=== PATIENT | male | born 1950 | race Caucasian/White ===

== ENCOUNTER → 2017-01-17 | Outpatient (CLI) | payer MEDICARE ==
[2017-01-17 17:54] LABS: Basophils # (A) 0.1 k/uL (0-0.2); Basophils % (A) 1 %; CH 32.4; CHCM 33.4; Eosinophils # (A) 0.4 k/uL (0-0.7); Eosinophils % (A) 4 %; HCT 51.9 % (39.0-53.0); HDW 2.45; HGB 16.8 gm/dL (13.0-17.5); Luc # (Auto) 0.21; Luc % (Auto) 2; Lymphocytes % (A) 22 %; MCH 31.7 pg (25.0-35.0); MCHC 32.4 g/dL (31.0-37.0); MCV 97.7 fL (80.0-100.0); Mean Platelet Volume 8.3; Monocytes # (A) 0.8 k/uL (0-1.0); Monocytes % (A) 9 %; Neutrophils # (A) 5.8 k/uL (1.3-7.7); Neutrophils % (A) 63 %; RBC 5.31 m/uL (4.30-5.90); RDW 13.5 % (11.5-15.5); WBC 9.3 k/uL (3.8-10.6); WBC (Perox) 9.42
[2017-01-17 18:05] LABS: Amylase 160 U/L (30-110); Anion Gap 11 mmol/L; Blood Urea Nitrogen 24 mg/dL (9-20); Calcium 8.8 mg/dL (8.4-10.2); Carbon Dioxide 24 mmol/L (22-30); Chloride 107 mmol/L (98-107); Glucose 110 mg/dL (74-99); Non-African American GFR(MDRD) 59 (>60 ml/min/1.73 sqM); Potassium 3.9 mmol/L (3.5-5.1); Sodium 142 mmol/L (137-145)
[2017-01-17 18:27] LABS: Creatine Kinase MB 1.6 ng/mL (0.0-2.4); Troponin I 0.012 ng/mL (0.000-0.034)
== END | disposition home or self-care (01) ==
LOC: LABWHC1 17:23
PROVIDERS: ATTEND Internal Medicine
DX: R10.13 Epigastric pain (principal)
CPT/HCPCS: 36415; 80048; 82150; 82553; 84484; 85025

== ENCOUNTER → 2017-01-19 | Outpatient (CLI) | payer MEDICARE ==
--- NOTE | 2017-01-19 11:42 | US ---
EXAMINATION TYPE: US abdomen complete DATE OF EXAM: 01/19/2017 11:27 AM COMPARISON: CT abdomen February 24 2012 CLINICAL HISTORY: R10.13 ABD PAIN, R68.89 ELEV AMYLASE. EPIGASTRIC PAIN EXAM MEASUREMENTS: Liver Length: 16.6 cm Gallbladder Wall: 0.2 cm CBD: 0.4 cm Spleen: 10.2 cm Right Kidney: 11.7 X 4.9 X 6.2 cm Left Kidney: 11.8 X 4.8 X 5.8 cm TECHNOLOGIST IMPRESSION: overlying bowel gas Pancreas: overlying bowel gas portions seen wnl Liver: wnl Gallbladder: wnl Evidence for sonographic Bruce's sign: no CBD: wnl Spleen: wnl Right Kidney: wnl Left Kidney: wnl Upper IVC: wnl Abd Aorta: distal aorta 2.6 cm slightly larger than mid aorta 1.8 cm The liver is heterogeneous. Evaluation for focal masses is limited due to the heterogeneity. No obvio us masses noted. The intrahepatic portion of the IVC and proximal abdominal aorta are within normal l imits. There is ectasia to the infrarenal abdominal aorta with aneurysmal change measuring up to 3.4 cm transversely noted on image 20. There is no evidence of cholelithiasis. Common bile duct is unre markable. Pancreas is obscured by overlying bowel gas and is suboptimally evaluated on images saved. The spleen is unremarkable. Kidneys are symmetric and free of hydronephrosis. No renal lesions are seen. IMPRESSION: Suboptimal study without significant finding clearly seen to account for patient's sympto ms. 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
== END | disposition home or self-care (01) ==
LOC: RADUSWWP 11:01
PROVIDERS: ATTEND Internal Medicine
DX: I77.811 Abdominal aortic ectasia (principal); R10.13 Epigastric pain
CPT/HCPCS: 76700

== ENCOUNTER → 2017-08-23 | Outpatient (CLI) | payer MEDICARE ==
[2017-08-23 11:30] LABS: Prostate Specific Antigen 2.1 ng/mL (0.00-4.00)
== END | disposition home or self-care (01) ==
LOC: LABWHC1 07:27
PROVIDERS: ATTEND Internal Medicine Critical Care Medicine
DX: Z00.00 Encounter for general adult medical examination without abnormal findings (principal); I25.10 Atherosclerotic heart disease of native coronary artery without angina pectoris; N40.0 Benign prostatic hyperplasia without lower urinary tract symptoms
CPT/HCPCS: 36415; 80061; 84153

== ENCOUNTER → 2018-06-07 | Outpatient (CLI) | payer MEDICARE ==
--- NOTE | 2018-06-07 12:15 | XR ---
EXAMINATION TYPE: XR knee complete LT DATE OF EXAM: 06/07/2018 CLINICAL HISTORY: Left knee pain with no known injury. TECHNIQUE: Three views of the left knee are obtained. COMPARISON: None. FINDINGS: There is no acute fracture/dislocation evident in left knee. There is mild to moderate tri compartmental arthrosis with small marginal osteophytes, medial compartment joint space narrowing and tibial plateau sclerosis. No suspicious osseous lesion. Small suprapatellar joint effusion is noted. The overlying soft tissue appears unremarkable. Fabella is incidentally noted. IMPRESSION: There is no acute fracture or dislocation in the left knee. Mild to moderate tricompartm ental arthrosis and small suprapatellar joint effusion.
== END | disposition home or self-care (01) ==
LOC: RADXRMAIN 11:42
PROVIDERS: ATTEND Internal Medicine
DX: M17.12 Unilateral primary osteoarthritis, left knee (principal)

== ENCOUNTER → 2018-09-04 | Outpatient (CLI) | payer MEDICARE ==
[2018-09-04 08:25] LABS: Basophils # (A) 0.1 k/uL (0-0.2); Basophils % (A) 1 %; Eosinophils # (A) 0.4 k/uL (0-0.7); Eosinophils % (A) 4 %; HCT 51.4 % (39.0-53.0); HGB 16.7 gm/dL (13.0-17.5); Lymphocytes # (A) 1.6 k/uL (1.0-4.8); Lymphocytes % (A) 17 %; MCH 31.5 pg (25.0-35.0); MCHC 32.5 g/dL (31.0-37.0); MCV 96.7 fL (80.0-100.0); Monocytes # (A) 0.7 k/uL (0-1.0); Monocytes % (A) 8 %; Neutrophils # (A) 6.7 k/uL (1.3-7.7); Neutrophils % (A) 70 %; Platelet Count 169 k/uL (150-450); RBC 5.31 m/uL (4.30-5.90); RDW 13.2 % (11.5-15.5); WBC 9.7 k/uL (3.8-10.6)
[2018-09-04 09:08] LABS: Albumin 3.9 g/dL (3.5-5.0); Calcium 9.2 mg/dL (8.4-10.2); Potassium 4.8 mmol/L (3.5-5.1); Total Bilirubin 0.4 mg/dL (0.2-1.3); Total Protein 6.6 g/dL (6.3-8.2)
[2018-09-04 09:24] LABS: T4, Free (Free Thyroxine) 0.87 ng/dL (0.78-2.19)
[2018-09-04 09:38] LABS: PSA Annual Screen 1.65 ng/mL (0.00-4.00)
== END | disposition home or self-care (01) ==
LOC: LABWHC1 06:59
PROVIDERS: ATTEND Internal Medicine Critical Care Medicine
DX: Z00.00 Encounter for general adult medical examination without abnormal findings (principal); E78.5 Hyperlipidemia, unspecified; N40.0 Benign prostatic hyperplasia without lower urinary tract symptoms
CPT/HCPCS: 84439; 80061; 80053; 84443; 85025; 36415; G0103

== ENCOUNTER → 2018-11-29 | Outpatient (CLI) | payer MEDICARE ==
[2018-11-29 18:50] LABS: Sex Horm Bind Glob 48.7 nmol/L (21.63-113.13)
== END | disposition home or self-care (01) ==
LOC: LABWHC1 12:48
PROVIDERS: ATTEND Urology
DX: N52.01 Erectile dysfunction due to arterial insufficiency (principal); N40.1 Benign prostatic hyperplasia with lower urinary tract symptoms
CPT/HCPCS: 36415; 82040; 82947; 83001; 83002; 84146; 84153; 84270; 84402; 84403; 84439; 84443; 84479

== ENCOUNTER → 2019-01-23 | Outpatient (CLI) | payer MEDICARE ==
[2019-01-23 12:00] LABS: Basophils # (A) 0.1 k/uL (0-0.2); Basophils % (A) 1 %; Eosinophils # (A) 0.3 k/uL (0-0.7); Eosinophils % (A) 3 %; HCT 52.6 % (39.0-53.0); HGB 16.5 gm/dL (13.0-17.5); Lymphocytes # (A) 1.3 k/uL (1.0-4.8); Lymphocytes % (A) 14 %; MCH 30.9 pg (25.0-35.0); MCHC 31.4 g/dL (31.0-37.0); MCV 98.5 fL (80.0-100.0); Mean Platelet Volume 7.2; Monocytes # (A) 0.7 k/uL (0-1.0); Monocytes % (A) 7 %; Neutrophils # (A) 6.6 k/uL (1.3-7.7); Neutrophils % (A) 72 %; Platelet Count 178 k/uL (150-450); RBC 5.34 m/uL (4.30-5.90); RDW 13.4 % (11.5-15.5); WBC 9.1 k/uL (3.8-10.6)
[2019-01-23 12:11] LABS: INR 0.9 (<1.2); Partial Thromboplastin Time 25.3 sec (22.0-30.0); Prothrombin Time 9.9 sec (9.0-12.0)
[2019-01-23 16:55] LABS: Anion Gap 5.6 mmol/L (4.00-12.00); Calcium 8.8 mg/dL (8.7-10.3); Carbon Dioxide 26.4 mmol/L (21.6-31.8); Potassium 5.1 mmol/L (3.5-5.5)
== END | disposition home or self-care (01) ==
LOC: LABWHC1 10:09
PROVIDERS: ATTEND Radiology Diagnostic Radiology
DX: Z01.812 Encounter for preprocedural laboratory examination (principal); N40.0 Benign prostatic hyperplasia without lower urinary tract symptoms; Z79.01 Long term (current) use of anticoagulants
CPT/HCPCS: 36415; 80048; 85025; 85610; 85730

== ENCOUNTER → 2019-07-22 | Outpatient (CLI) | payer MEDICARE ==
--- NOTE | 2019-07-22 13:20 | XR ---
EXAMINATION TYPE: XR ribs bilateral DATE OF EXAM: 07/22/2019 COMPARISON: 10/14/2015 HISTORY: Pleural dyspnea TECHNIQUE: Two-view bilateral ribs FINDINGS: No acute fractures are evident. No pneumothorax is evident. IMPRESSION: 1. Normal bilateral ribs
== END | disposition home or self-care (01) ==
LOC: RADXRMAIN 09:33
PROVIDERS: ATTEND Internal Medicine Critical Care Medicine
DX: R07.81 Pleurodynia (principal)
CPT/HCPCS: 71110

== ENCOUNTER 2019-07-24 16:59 | Emergency (ER) | payer MEDICARE ==
[2019-07-24 17:05] VITALS: RESP 18
[2019-07-24] MEDS ORDERED: NITROGLYCERIN OINT 1 INCH/GM PACKET TOPICAL STA (17:25)
[2019-07-24] MEDS ORDERED: ASPIRIN 81 MG PO STA (17:25)
[2019-07-24 17:52] LABS: Basophils # (A) 0.1 k/uL (0-0.2); Basophils % (A) 1 %; Eosinophils # (A) 0.7 k/uL (0-0.7); Eosinophils % (A) 6 %; HGB 16.5 gm/dL (13.0-17.5); Lymphocytes # (A) 1.9 k/uL (1.0-4.8); Lymphocytes % (A) 18 %; MCV 96.9 fL (80.0-100.0); Mean Platelet Volume 8.2; Monocytes # (A) 0.9 k/uL (0-1.0); Monocytes % (A) 8 %; Neutrophils % (A) 65 %; Platelet Count 153 k/uL (150-450); RBC 5.16 m/uL (4.30-5.90); RDW 13.6 % (11.5-15.5); WBC 10.7 k/uL (3.8-10.6)
[2019-07-24 17:59] LABS: INR 0.9 (<1.2); Partial Thromboplastin Time 24.5 sec (22.0-30.0); Prothrombin Time 9.8 sec (9.0-12.0)
[2019-07-24 18:01] LABS: Calcium 9.1 mg/dL (8.4-10.2); Magnesium 2.4 mg/dL (1.6-2.3); Potassium 4.4 mmol/L (3.5-5.1); Total Bilirubin 0.4 mg/dL (0.2-1.3); Total Protein 6.7 g/dL (6.3-8.2)
--- NOTE | 2019-07-24 18:04 | ED ---
Chest Pain HPI - General Chief Complaint: Chest Pain Stated Complaint: abn EKG Time Seen by Provider: 07/24/19 17:05 Source: patient Mode of arrival: ambulatory Limitations: no limitations - History of Present Illness Initial Comments: The patient is a 69-year-old male who presents to the emergency department with reported chest pain for the past 8 days. He describes it as a pulling sensation in his left chest which is worse when he moves his neck up and down. He can reproduce the pain. He has no associated symptoms to include nausea, vomiting or diaphoresis. No radiating pain into his left arm. Denies any back or flank pain. He does have a history of cardiac disease. States that he had a stent placed in 2003. He has had stress testing within the last year which was negative. He denies any associated shortness of breath. 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 She did call him and let him know what was going on. He did order a rib series. Imaging was done on Monday. He did follow up in office today to see Dr. Stevens. An EKG was performed and was concerning therefore he sent the patient into the emergency department for evaluation. The patient arrives with his EKGs. He denies current pain at this time. He denies any additional symptoms to what headaches, fevers or chills, cough, hemoptysis. No unilateral calf pain or swelling. No history of DVTs or PEs. The patient is not on any blood thinners. There are no other alleviating, precipitating or modifying factors. - Related Data Home Medications Medication Instructions Recorded Confirmed Aspirin EC [Ecotrin Low Dose] 81 mg PO DAILY 07/24/19 07/24/19 Atenolol 25 mg PO DAILY 07/24/19 07/24/19 Cyclobenzaprine [Flexeril] 10 mg PO TID PRN 07/24/19 07/24/19 Ezetimibe [Zetia] 5 mg PO DAILY 07/24/19 07/24/19 Hydrocodone/Acetaminophen [[place] 1.5 tab PO Q3H PRN 07/24/19 07/24/19 7.5-325] Losartan Potassium [Cozaar] 25 mg PO DAILY 07/24/19 07/24/19 Tadalafil [Cialis] 5 mg PO DAILY 07/24/19 07/24/19 Tamsulosin HCl [Flomax] 0.4 mg PO DAILY 07/24/19 07/24/19 Vit C/E/Zn/Coppr/Lutein/Zeaxan 1 cap PO BID 07/24/19 07/24/19 [Preservision Areds 2 Softgel] amLODIPine [Norvasc] 10 mg PO DAILY 07/24/19 07/24/19 Allergies Allergy/AdvReac Type Severity Reaction Status Date / Time No Known Allergies Allergy Verified 07/24/19 17:46 Review of Systems ROS Statement: Those systems with pertinent positive or pertinent negative responses have been documented in the HPI. ROS Other: All systems not noted in ROS Statement are negative. EKG Findings - EKG Comments: EKG Findings:: EKG demonstrates a sinus rhythm with a ventricular rate of 77. VT interval 196. QRS 86. QTC 427. There is ST segment elevation in leads V2 however there is a bundle branch block. This is compared the patient's previous EKG in July 2011 which demonstrates similar findings however ST segment elevation is more pronounced. It does not meet sgarbossa criteria. The patient does arrive with 3 EKGs from office which do show ST segment elevation in leads V2 through V5. There is significant baseline artifact. There is a bundle branch block present Past Medical History Past Medical History: Chest Pain / Angina, Hypertension History of Any Multi-Drug Resistant Organisms: None Reported Past Surgical History: Heart Catheterization With Stent Past Psychological History: No Psychological Hx Reported Smoking Status: Current every day smoker Past Alcohol Use History: Occasional Past Drug Use History: None Reported General Exam Limitations: no limitations General appearance: alert, in no apparent distress Head exam: Present: atraumatic, normocephalic, normal inspection Eye exam: Present: normal appearance, PERRL, EOMI. Absent: scleral icterus, conjunctival injection, periorbital swelling ENT exam: Present: normal exam, mucous membranes moist Neck exam: Present: normal inspection. Absent: tenderness, meningismus, lymphadenopathy Respiratory exam: Present: normal lung sounds bilaterally. Absent: respiratory distress, wheezes, rales, rhonchi, stridor Cardiovascular Exam: Present: regular rate, normal rhythm, normal heart sounds. Absent: systolic murmur, diastolic murmur, rubs, gallop, clicks GI/Abdominal exam: Present: soft, normal bowel sounds. Absent: distended, tenderness, guarding, rebound, rigid Extremities exam: Present: normal inspection, full ROM, normal capillary refill. Absent: tenderness, pedal edema, joint swelling, calf tenderness Back exam: Present: normal inspection Neurological exam: Present: alert, oriented X3, CN II-XII intact Psychiatric exam: Present: normal affect, normal mood Skin exam: Present: warm, dry, intact, normal color. Absent: rash Course Vital Signs 07/24/19 07/24/19 07/24/19 17:01 18:00 19:00 Temperature 98.1 F 97.8 F Pulse Rate 82 80 80 Respiratory 18 18 18 Rate Blood Pressure 208/112 157/91 148/99 O2 Sat by Pulse 97 9 L 98 Oximetry Chest Pain MDM - Differential Diagnosis AMI, ACS - MDM Upon arrival the patient is placed into room 4. He is hooked up to continuous pulse ox and cardiac monitoring. A thorough history and physical exam is performed. I reviewed the patient's outside EKGs which demonstrated ST elevation in leads V2 and V3. There is a bundle branch block present. Does not appear to meet scar both the criteria. I did recommend a cardiac workup to include laboratory studies and a chest x-ray. I also recommended a x-ray of the patient's cervical spine. The patient is provided with 324 mg of chewable aspirin. He also has Nitropaste applied to the chest. I did reevaluate the patient and he states that he's had no change. He still has pain when he moves his neck however has no pain at this time. I did recommend hospital admission in order to continue to trend the patient's troponins. I am extremely concerned that his chest pain may be cardiac in nature. The patient refused. I did inform him of the risks of leaving which include sudden cardiac . There is also risk for permanent disability. The patient understood the risks and continues to request discharge. is at bedside and agrees with his decision. I informed him that I would have him go AGAINST MEDICAL ADVICE and the patient was okay with this. I requested [address] Alonso to update them regarding the patient's care plan. the patient and his refused stating that they would make them aware. I did ask him that if he has any new or worsening symptoms that he return to the emergency room. The patient was then discharged AGAINST MEDICAL ADVICE Disposition Clinical Impression: Chest pain Disposition: Left Against Medical Advice Condition: Serious Instructions (If sedation given, give patient instructions): Chest Pain (ED) Additional Instructions: I recommended hospital admission. You are leaving the emergency department AGAINST MEDICAL ADVICE. You need to follow up with Dr. Rutledge as soon as soumya rubio. Return to the emergency room for any new or worsening symptoms or if you agree to hospitalization. Is patient prescribed a controlled substance at d/c from ED?: No Referrals: Flores Stevens MD [Primary Care Provider] - 1-2 days Time of Disposition: 18:36
--- NOTE | 2019-07-24 18:22 | XR ---
EXAMINATION TYPE: XR chest 2V DATE OF EXAM: 07/24/2019 COMPARISON: 04/23/2019 INDICATION: Cough, pain TECHNIQUE: Frontal and lateral views of the chest are obtained. FINDINGS: The heart size is mildly prominent. The pulmonary vasculature is normal. The lungs are clear. IMPRESSION: 1. No acute pulmonary process.
--- NOTE | 2019-07-24 18:23 | XR ---
EXAMINATION TYPE: XR cervical spine comp DATE OF EXAM: 07/24/2019 COMPARISON: None HISTORY: Pain TECHNIQUE: 5 view cervical spine FINDINGS: There is loss of disc height C4-5 C5-6. Anterior visual body spurring is present through th jaquelin levels. Posterior spinal lamellar line is intact. Prevertebral space is normal. Some left foramin al stenosis of C3-4 may be present. Some left C4-5 foraminal stenosis may be present. IMPRESSION: 1. Degenerative disc changes mid cervical spine. 2. Left foraminal narrowing discussed above
[2019-07-24 23:02] VITALS: BP 148/99; PULSE 80; TEMP 97.8
== END 2019-07-24 19:08 | disposition left against medical advice (07) ==
LOC: EC 16:59
DX: R07.9 Chest pain, unspecified (principal); I45.4 Nonspecific intraventricular block; I20.9 Angina pectoris, unspecified; I10 Essential (primary) hypertension; F17.200 Nicotine dependence, unspecified, uncomplicated; Z79.82 Long term (current) use of aspirin; Z79.899 Other long term (current) drug therapy; Z95.5 Presence of coronary angioplasty implant and graft; Z53.20 Procedure and treatment not carried out because of patient's decision for unspecified reasons
CPT/HCPCS: 36415; 71046; 72050; 80053; 83735; 83880; 84484; 85025; 85610; 85730; 99285

== ENCOUNTER → 2019-08-15 | Outpatient (CLI) | payer MEDICARE ==
[2019-08-15 17:42] LABS: Chol/HDL Ratio 4.57; LDL Cholesterol,Calculated 105.4 mg/dL (0.0-131.0); VLDL Calculation 19.6 mg/dL (5.00-40.00)
== END ==
LOC: LABWHC1 07:31
PROVIDERS: ATTEND Nurse Practitioner Adult Health
DX: E78.2 Mixed hyperlipidemia (principal)
CPT/HCPCS: 36415; 80061; 84460

== ENCOUNTER → 2020-05-06 | Outpatient (CLI) | payer MEDICARE ==
[2020-05-06 09:10] LABS: Appearance,Urine Clear (Clear); Bilirubin,Urine Negative (Negative); Blood,Urine Negative (Negative); Color,Urine Yellow; Glucose,Urine (UA) Negative (Negative); Hyaline Casts,Urine 3 /lpf (0-2); Ketones,Urine Negative (Negative); Leukocyte Esterase,Urine Negative (Negative); Mucus,Urine Rare /hpf; Nitrite,Urine Negative (Negative); PH, Urine 5.5 (5.0-8.0); Protein,Urine 1+ (Negative); Specific Gravity,Urine 1.017 (1.001-1.035); Urobilinogen,Urine <2.0 mg/dL (<2.0); WBC,Urine <1 /hpf (0-5)
[2020-05-06 09:11] LABS: Basophils # (A) 0.1 k/uL (0-0.2); Basophils % (A) 1 %; Eosinophils # (A) 0.4 k/uL (0-0.7); Eosinophils % (A) 4 %; HCT 51.3 % (39.0-53.0); HGB 16.6 gm/dL (13.0-17.5); Lymphocytes # (A) 1.6 k/uL (1.0-4.8); Lymphocytes % (A) 16 %; MCH 31.9 pg (25.0-35.0); MCHC 32.3 g/dL (31.0-37.0); MCV 98.8 fL (80.0-100.0); Mean Platelet Volume 8.4; Monocytes # (A) 0.8 k/uL (0-1.0); Monocytes % (A) 8 %; Neutrophils # (A) 6.9 k/uL (1.3-7.7); Neutrophils % (A) 70 %; Platelet Count 151 k/uL (150-450); RDW 13.3 % (11.5-15.5); WBC 9.9 k/uL (3.8-10.6)
[2020-05-06 17:10] LABS: African American GFR (CKD) 53.9 (60.0-200.0); Albumin 4.3 g/dL (3.80-4.90); Albumin/Globulin Ratio 2.15 (1.60-3.17); Anion Gap 7.5 mmol/L (4.00-12.00); BUN/Creat Ratio 22.67 Ratio (12.00-20.00); Calcium 9.1 mg/dL (8.7-10.3); Carbon Dioxide 25.5 mmol/L (21.6-31.8); Non-African American GFR(CKD) 46.5 (60.0-200.0); Potassium 4.8 mmol/L (3.5-5.5); Total Bilirubin 0.5 mg/dL (0.2-1.2); Total Protein 6.3 g/dL (6.2-8.2)
== END | disposition home or self-care (01) ==
LOC: LABWHC1 07:18
PROVIDERS: ATTEND Internal Medicine Critical Care Medicine
DX: I10 Essential (primary) hypertension (principal); N40.0 Benign prostatic hyperplasia without lower urinary tract symptoms
CPT/HCPCS: 36415; 80053; 81001; 84153; 85025

== ENCOUNTER → 2020-05-22 | Outpatient (CLI) | payer MEDICARE ==
--- NOTE | 2020-05-22 15:25 | US ---
EXAMINATION TYPE: US renal artery duplex complet DATE OF EXAM: 05/22/2020 COMPARISON: Abdomen ultrasound 01/19/2017 CLINICAL HISTORY: R10.31 Right lower quadrant pain, I10 hypertension. HTN for years, fluctuation note d within the last 2 weeks MEASUREMENTS: RENAL SIZE: Rt Kidney: 12.7 x 4.8 x 4.9cm Lt Kidney: 11.3 x 5.1 x 4.5cm RESISTANCE INDEX Right: 0.64 Left: 0.65 RA/AO RATIO (< 3.5 ) Right: 0.9 Left: 1.1 RA VELOCITY ( < 180 cm/s) Right: 122.7cm/s Left: 137.4cm/s AAA noted with greatest dimension noted distally = 4.5 x 4.1cm, thrombus noted anterior distal segmen t. Technical limitations due to large amount of overlying bowel content. No evidence of renal artery stenosis as visualized IMPRESSION: 1. Normal renal artery ultrasound. 2. Abdominal aortic aneurysm measuring 4.5 x [address] for additional workup. A [place] level critical message alert has been initiated for Balanitza Hustoncoral via the [employer] Critical Results System on 05/22/2020 3:22 PM. This message alert has been sent to Flores Stevens via the preferences provided by the clinician for the receipt of Radiology Critical Findings. Message ID [id number].
== END | disposition home or self-care (01) ==
LOC: RADUSWWP 08:19
PROVIDERS: ATTEND Internal Medicine Critical Care Medicine
DX: I71.4 Abdominal aortic aneurysm, without rupture (principal); I10 Essential (primary) hypertension
CPT/HCPCS: 93975

== ENCOUNTER → 2020-07-03 | Outpatient (CLI) | payer MEDICARE ==
--- NOTE | 2020-07-03 15:06 | CT ---
EXAMINATION TYPE: CT brain w con DATE OF EXAM: 07/03/2020 COMPARISON: None. HISTORY: headaches X [address] DLP: 1108.4 mGycm Automated exposure control for dose reduction was used. CONTRAST: CT scan of the head is performed with IV Contrast, patient injected with 100 mL of Isovue 300. FINDINGS: There is no abnormal enhancing mass or midline shift identified. Ventricular and sulcal prominence. Areas of low attenuation in the deep and periventricular white matter. Patent draining dural venous s inuses. The globes are intact and the visualized sinuses are clear. IMPRESSION: Background mild to moderate diffuse cerebral and chronic small vessel ischemic change. No suspicious enhancing masses are noted.
== END | disposition home or self-care (01) ==
LOC: RADCTMAIN 13:53
PROVIDERS: ATTEND Internal Medicine Critical Care Medicine
DX: I67.82 Cerebral ischemia (principal); R51 Headache; Z88.8 Allergy status to other drugs, medicaments and biological substances
CPT/HCPCS: 82565; 84520; 70460; 36415; Q9967

== ENCOUNTER → 2020-07-29 | Outpatient (CLI) | payer MEDICARE | END | disposition home or self-care (01) | LOC: LABWHC1 12:57 | PROVIDERS: ATTEND Otolaryngology | DX: R53.83 Other fatigue (principal); R51 Headache | CPT/HCPCS: 36415; 85652 ==

== ENCOUNTER 2020-11-04 21:26 | Inpatient (IN) | payer MEDICARE ==
[2020-11-04] MEDS ORDERED: ASPIRIN 81 MG PO STA (21:59)
--- NOTE | 2020-11-04 22:03 | ED ---
General Adult HPI - General Source: patient Mode of arrival: ambulatory Limitations: no limitations <Joshua Hung - Last Filed: 11/04/20 22:54> <Simone Lowery - Last Filed: 11/05/20 22:38> - General Chief complaint: Chest Pain Stated complaint: Chest Pain Time Seen by Provider: 11/04/20 21:55 - History of Present Illness Initial comments: Dictation was produced using [employer] dictation software. please excuse any grammatical, word or spelling errors. This patient was cared for during a federal and state declared state of emergency secondary to Covid 19 Chief Complaint: 70-year-old male presents with chest pain History of Present Illness: 70-year-old male he has past medical history of hypertension, coronary artery disease. Presents today with chest pain. He was at the grocery store when he felt some sharp chest pain that was substernal radiating to the left flank. Patient states that there was no associated diaphoresis or nausea. His pain lasts for several minutes are within improved spontaneously. Patient was at home than when he had dinner and had some ice cream. Shortly after patient had a recurrence of that pain. Patient denies any palpitations. Denies any shortness of breath. No constitutional symptoms. No cough. He reports his pain is not pleuritic. Patient does report having some mild chest pain at the bedside. The ROS documented in this emergency department record has been reviewed and confirmed by me. Those systems with pertinent positive or negative responses have been documented in the HPI. All other systems are other negative and/or noncontributory. PHYSICAL EXAM: General Impression: Alert and oriented x3, not in acute distress HEENT: Normocephalic atraumatic, extra-ocular movements intact, pupils equal and reactive to light bilaterally, mucous membranes moist. Cardiovascular: Heart regular rate and rhythm Chest: Able to complete full sentences, no retractions, no tachypnea Abdomen: abdomen soft, non-tender, non-distended, no organomegaly Musculoskeletal: Pulses present and equal in all extremities, no peripheral edema Motor: no focal deficits noted Neurological: CN II-XII grossly intact, no focal motor or sensory deficits noted Skin: Intact with no visualized rashes Psych: Normal affect and mood ED course: 70-year-old male presents today with atypical chest pain typical features. Signs upon arrival shows blood pressure 2 10/27/2013. Rest of vital signs within acceptable limits. Medications reviewed. Patient does take antihypertensives. Patient care signed out to Dr. Nino EKG interpretation: Ventricular rate 73, normal sinus rhythm, AZ interval 206, QRS 82, QTc 47. No AZ prolongation, no QTC prolongation, to inversions in high lateral leads with ST elevations in anterior leads with concavity upwards. Multiple EKGs were performed showing no dynamic changes. (Joshua Hung) - Related Data Home Medications Medication Instructions Recorded Confirmed Ezetimibe [Zetia] 10 mg PO DAILY 07/24/19 11/04/20 Tadalafil [Cialis] 5 mg PO DAILY 07/24/19 11/04/20 Tamsulosin HCl [Flomax] 0.4 mg PO DAILY 07/24/19 11/04/20 Vit C/E/Zn/Coppr/Lutein/Zeaxan 1 cap PO BID 07/24/19 11/04/20 [Preservision Areds 2 Softgel] amLODIPine [Norvasc] 10 mg PO DAILY 07/24/19 11/04/20 atenoloL [Atenolol] 25 mg PO DAILY 07/24/19 11/04/20 Losartan Potassium 50 mg PO HS 11/04/20 11/04/20 Losartan-Hctz 50-12.5 mg [Hyzaar 1 tab PO DAILY 11/04/20 11/04/20 50-12.5] Allergies Allergy/AdvReac Type Severity Reaction Status Date / Time No Known Allergies Allergy Verified 11/04/20 22:59 Review of Systems ROS Other: All systems not noted in ROS Statement are negative. <Joshua Hung - Last Filed: 11/04/20 22:54> ROS Other: All systems not noted in ROS Statement are negative. <Simone Lowery - Last Filed: 11/05/20 22:38> ROS Statement: Those systems with pertinent positive or pertinent negative responses have been documented in the HPI. Past Medical History Past Medical History: Chest Pain / Angina, Hypertension History of Any Multi-Drug Resistant Organisms: None Reported Past Surgical History: Heart Catheterization With Stent Past Psychological History: No Psychological Hx Reported Smoking Status: Current every day smoker Past Alcohol Use History: Occasional Past Drug Use History: None Reported <AnabellJoshua Ady - Last Filed: 11/04/20 22:54> - Past Family History Father History Unknown: Yes Mother History Unknown: Yes <Roselynmarco [email or web address] B - Last Filed: 11/05/20 22:38> General Exam Limitations: no limitations <Joshua Hung - Last Filed: 11/04/20 22:54> General appearance: alert, in no apparent distress Head exam: Present: atraumatic, normocephalic, normal inspection Eye exam: Present: normal appearance, PERRL, EOMI. Absent: scleral icterus, conjunctival injection, periorbital swelling ENT exam: Present: normal exam, mucous membranes moist Neck exam: Present: normal inspection. Absent: tenderness, meningismus, lymphadenopathy Respiratory exam: Present: normal lung sounds bilaterally. Absent: respiratory distress, wheezes, rales, rhonchi, stridor Cardiovascular Exam: Present: regular rate, normal rhythm, normal heart sounds. Absent: systolic murmur, diastolic murmur, rubs, gallop, clicks GI/Abdominal exam: Present: soft, normal bowel sounds. Absent: distended, tenderness, guarding, rebound, rigid Extremities exam: Present: normal inspection, full ROM, normal capillary refill. Absent: tenderness, pedal edema, joint swelling, calf tenderness Back exam: Present: normal inspection Neurological exam: Present: alert, oriented X3, CN II-XII intact Psychiatric exam: Present: normal affect, normal mood Skin exam: Present: warm, dry, intact, normal color. Absent: rash <Simone Lowery - Last Filed: 11/05/20 22:38> Course <Simone Lowery - Last Filed: 11/05/20 22:38> Vital Signs 11/04/20 11/04/20 11/04/20 21:28 22:30 23:00 Temperature 98.6 F Pulse Rate 87 76 79 Respiratory 18 18 18 Rate Blood Pressure 212/113 202/113 190/110 O2 Sat by Pulse 98 95 95 Oximetry 11/04/20 11/05/20 11/05/20 23:30 00:00 00:30 Temperature Pulse Rate 79 79 78 Respiratory 16 16 18 Rate Blood Pressure 153/94 149/93 171/93 O2 Sat by Pulse 96 96 98 Oximetry 11/05/20 11/05/20 11/05/20 01:00 02:43 03:00 Temperature Pulse Rate 79 78 84 Respiratory 18 17 20 Rate Blood Pressure 142/92 136/95 136/95 O2 Sat by Pulse 98 95 98 Oximetry 11/05/20 11/05/20 11/05/20 03:30 04:00 04:30 Temperature Pulse Rate 68 74 72 Respiratory 16 16 19 Rate Blood Pressure 133/102 149/92 147/110 O2 Sat by Pulse 97 98 100 Oximetry 11/05/20 11/05/20 11/05/20 05:00 05:30 06:00 Temperature Pulse Rate 64 63 65 Respiratory 18 17 16 Rate Blood Pressure 153/92 164/96 164/94 O2 Sat by Pulse 98 98 95 Oximetry 11/05/20 11/05/20 11/05/20 06:30 09:33 11:24 Temperature 98.3 F Pulse Rate 64 63 62 Respiratory 18 18 18 Rate Blood Pressure 156/93 158/105 150/100 O2 Sat by Pulse 97 98 95 Oximetry - Reevaluation(s) Reevaluation #1: Medical record is reviewed Patient remains inconsistent here in the ER Patient informed od findings as well as and questions answered (Simone Lowery) Medical Decision Making - Lab Data Result diagrams: 11/04/20 22:01 11/04/20 22:00 <Joshua Hung - Last Filed: 11/04/20 22:54> - Lab Data Result diagrams: 11/05/20 05:17 11/05/20 09:30 <Simone Lowery - Last Filed: 11/05/20 22:38> - Medical Decision Making 30 male who presented today with sudden onset chest pain history of ACS and stent, patient elevated troponin here in the ER will be admitted for cardiology to evaluate (Simone Lowery) - Lab Data Lab Results 11/04/20 11/04/20 11/04/20 Range/Units 22:00 22:01 22:01 WBC 12.6 H (3.8-10.6) k/uL RBC 4.83 (4.30-5.90) m/uL Hgb 15.3 (13.0-17.5) gm/dL Hct 45.8 (39.0-53.0) % MCV 94.7 (80.0-100.0) fL MCH 31.6 (25.0-35.0) pg MCHC 33.3 (31.0-37.0) g/dL RDW 12.9 (11.5-15.5) % Plt Count 158 (150-450) k/uL MPV 8.2 Neutrophils % 71 % Lymphocytes % 14 % Monocytes % 8 % Eosinophils % 4 % Basophils % 2 % Neutrophils # 9.0 H (1.3-7.7) k/uL Lymphocytes # 1.8 (1.0-4.8) k/uL Monocytes # 1.0 (0-1.0) k/uL Eosinophils # 0.5 (0-0.7) k/uL Basophils # 0.2 (0-0.2) k/uL PT 9.8 (9.0-12.0) sec INR 0.9 (<1.2) APTT 24.0 (22.0-30.0) sec D-Dimer (<0.60) mg/L FEU Sodium 140 (137-145) mmol/L Potassium 5.1 (3.5-5.1) mmol/L Chloride 110 H (98-107) mmol/L Carbon Dioxide 23 (22-30) mmol/L Anion Gap 7 mmol/L BUN 46 H (9-20) mg/dL Creatinine 1.58 H (0.66-1.25) mg/dL Est GFR (CKD-EPI)AfAm 50 (>60 ml/min/1.73 sqM) Est GFR (CKD-EPI)NonAf 44 (>60 ml/min/1.73 sqM) Glucose 136 H (74-99) mg/dL Calcium 9.3 (8.4-10.2) mg/dL Magnesium 2.2 (1.6-2.3) mg/dL Total Bilirubin 0.7 (0.2-1.3) mg/dL AST 36 (17-59) U/L ALT 30 (4-49) U/L Alkaline Phosphatase 75 (38-126) U/L Troponin I (0.000-0.034) ng/mL Total Protein 7.1 (6.3-8.2) g/dL Albumin 4.0 (3.5-5.0) g/dL Lipase 99 (23-300) U/L 11/04/20 11/04/20 11/05/20 Range/Units 22:01 22:01 02:40 WBC (3.8-10.6) k/uL RBC (4.30-5.90) m/uL Hgb (13.0-17.5) gm/dL Hct (39.0-53.0) % MCV (80.0-100.0) fL MCH (25.0-35.0) pg MCHC (31.0-37.0) g/dL RDW (11.5-15.5) % Plt Count (150-450) k/uL MPV Neutrophils % % Lymphocytes % % Monocytes % % Eosinophils % % Basophils % % Neutrophils # (1.3-7.7) k/uL Lymphocytes # (1.0-4.8) k/uL Monocytes # (0-1.0) k/uL Eosinophils # (0-0.7) k/uL Basophils # (0-0.2) k/uL PT (9.0-12.0) sec INR (<1.2) APTT (22.0-30.0) sec D-Dimer 2.46 H (<0.60) mg/L FEU Sodium (137-145) mmol/L Potassium (3.5-5.1) mmol/L Chloride (98-107) mmol/L Carbon Dioxide (22-30) mmol/L Anion Gap mmol/L BUN (9-20) mg/dL Creatinine (0.66-1.25) mg/dL Est GFR (CKD-EPI)AfAm (>60 ml/min/1.73 sqM) Est GFR (CKD-EPI)NonAf (>60 ml/min/1.73 sqM) Glucose (74-99) mg/dL Calcium (8.4-10.2) mg/dL Magnesium (1.6-2.3) mg/dL Total Bilirubin (0.2-1.3) mg/dL AST (17-59) U/L ALT (4-49) U/L Alkaline Phosphatase (38-126) U/L Troponin I 0.058 H* 0.407 H* (0.000-0.034) ng/mL Total Protein (6.3-8.2) g/dL Albumin (3.5-5.0) g/dL Lipase (23-300) U/L 11/05/20 11/05/20 11/05/20 Range/Units 05:17 05:17 07:57 WBC (3.8-10.6) k/uL RBC (4.30-5.90) m/uL Hgb (13.0-17.5) gm/dL Hct (39.0-53.0) % MCV (80.0-100.0) fL MCH (25.0-35.0) pg MCHC (31.0-37.0) g/dL RDW (11.5-15.5) % Plt Count 138 L (150-450) k/uL MPV 8.5 Neutrophils % % Lymphocytes % % Monocytes % % Eosinophils % % Basophils % % Neutrophils # (1.3-7.7) k/uL Lymphocytes # (1.0-4.8) k/uL Monocytes # (0-1.0) k/uL Eosinophils # (0-0.7) k/uL Basophils # (0-0.2) k/uL PT (9.0-12.0) sec INR (<1.2) APTT 41.2 H (22.0-30.0) sec D-Dimer (<0.60) mg/L FEU Sodium (137-145) mmol/L Potassium (3.5-5.1) mmol/L Chloride (98-107) mmol/L Carbon Dioxide (22-30) mmol/L Anion Gap mmol/L BUN (9-20) mg/dL Creatinine (0.66-1.25) mg/dL Est GFR (CKD-EPI)AfAm (>60 ml/min/1.73 sqM) Est GFR (CKD-EPI)NonAf (>60 ml/min/1.73 sqM) Glucose (74-99) mg/dL Calcium (8.4-10.2) mg/dL Magnesium (1.6-2.3) mg/dL Total Bilirubin (0.2-1.3) mg/dL AST (17-59) U/L ALT (4-49) U/L Alkaline Phosphatase (38-126) U/L Troponin I 0.582 H* (0.000-0.034) ng/mL Total Protein (6.3-8.2) g/dL Albumin (3.5-5.0) g/dL Lipase (23-300) U/L 11/05/20 Range/Units 09:30 WBC (3.8-10.6) k/uL RBC (4.30-5.90) m/uL Hgb (13.0-17.5) gm/dL Hct (39.0-53.0) % MCV (80.0-100.0) fL MCH (25.0-35.0) pg MCHC (31.0-37.0) g/dL RDW (11.5-15.5) % Plt Count (150-450) k/uL MPV Neutrophils % % Lymphocytes % % Monocytes % % Eosinophils % % Basophils % % Neutrophils # (1.3-7.7) k/uL Lymphocytes # (1.0-4.8) k/uL Monocytes # (0-1.0) k/uL Eosinophils # (0-0.7) k/uL Basophils # (0-0.2) k/uL PT (9.0-12.0) sec INR (<1.2) APTT (22.0-30.0) sec D-Dimer (<0.60) mg/L FEU Sodium 143 (137-145) mmol/L Potassium 4.1 (3.5-5.1) mmol/L Chloride 114 H (98-107) mmol/L Carbon Dioxide 20 L (22-30) mmol/L Anion Gap 9 mmol/L BUN 35 H (9-20) mg/dL Creatinine 1.31 H (0.66-1.25) mg/dL Est GFR (CKD-EPI)AfAm 63 (>60 ml/min/1.73 sqM) Est GFR (CKD-EPI)NonAf 55 (>60 ml/min/1.73 sqM) Glucose 104 H (74-99) mg/dL Calcium 8.9 (8.4-10.2) mg/dL Magnesium (1.6-2.3) mg/dL Total Bilirubin (0.2-1.3) mg/dL AST (17-59) U/L ALT (4-49) U/L Alkaline Phosphatase (38-126) U/L Troponin I (0.000-0.034) ng/mL Total Protein (6.3-8.2) g/dL Albumin (3.5-5.0) g/dL Lipase (23-300) U/L Critical Care Time Critical Care Time: Yes Total Critical Care Time: 31 <Simone Lowery - Last Filed: 11/05/20 22:38> Disposition <Joshua Hung - Last Filed: 11/04/20 22:54> Is patient prescribed a controlled substance at d/c from ED?: No <Simone Lowery - Last Filed: 11/05/20 22:38> Clinical Impression: Chest pain, NSTEMI (non-ST elevated myocardial infarction) Disposition: ADMITTED IP TO THIS HOSP Condition: Fair
[2020-11-04 22:20] LABS: Basophils # (A) 0.2 k/uL (0-0.2); Basophils % (A) 2 %; Eosinophils # (A) 0.5 k/uL (0-0.7); Eosinophils % (A) 4 %; HCT 45.8 % (39.0-53.0); HGB 15.3 gm/dL (13.0-17.5); Lymphocytes # (A) 1.8 k/uL (1.0-4.8); Lymphocytes % (A) 14 %; MCH 31.6 pg (25.0-35.0); MCHC 33.3 g/dL (31.0-37.0); MCV 94.7 fL (80.0-100.0); Mean Platelet Volume 8.2; Monocytes % (A) 8 %; Neutrophils % (A) 71 %; Platelet Count 158 k/uL (150-450); RBC 4.83 m/uL (4.30-5.90); RDW 12.9 % (11.5-15.5); WBC 12.6 k/uL (3.8-10.6)
--- NOTE | 2020-11-04 22:21 | XR ---
EXAMINATION TYPE: XR chest 1V portable DATE OF EXAM: 11/04/2020 COMPARISON: 05/05/2020 HISTORY: COPD. Chest pain TECHNIQUE: FINDINGS: There is no heart failure nor confluent pneumonic infiltrate. Heart appears enlarged. There are chest leads. There is no pleural effusion. IMPRESSION: Mild cardiomegaly. No active cardiopulmonary disease. Heart is increased slightly compare d to old exam.
[2020-11-04 22:28] LABS: INR 0.9 (<1.2); Prothrombin Time 9.8 sec (9.0-12.0)
[2020-11-04 22:37] LABS: Calcium 9.3 mg/dL (8.4-10.2)
[2020-11-04] MEDS ORDERED: LABETALOL 5 MG/ML VIAL MDV IVP STA (22:45)
[2020-11-04 22:47] LABS: Magnesium 2.2 mg/dL (1.6-2.3); Potassium 5.1 mmol/L (3.5-5.1); Total Protein 7.1 g/dL (6.3-8.2)
[2020-11-04 22:48] LABS: Total Bilirubin 0.7 mg/dL (0.2-1.3)
[2020-11-04] MEDS ORDERED: SODIUM CHLORIDE 0.9% 1,000 ML IV STA ×2 (22:49→23:21)
--- NOTE | 2020-11-05 | CT ---
EXAMINATION TYPE: CT angio chest DATE OF EXAM: 11/04/2020 COMPARISON: None HISTORY: elevated d-dimer CT DLP: 537.6 mGycm Automated exposure control for dose reduction was used. CONTRAST: Performed with IV Contrast, patient injected with 75 mL of Isovue 370. There are 3-D post processed images. There is no mediastinal adenopathy. There are no hilar masses. Thoracic aorta is intact. There is mil d 4 cm aneurysm of the ascending aorta. There is no dissection. Heart size is normal. There is no pericardial effusion. Upper abdominal soft tissues are intact. There is normal contrast opacification of the pulmonary arteries. There are no filling defects. The lungs are clear of consolidation. There is no evidence of a pulmonary mass. There is no pleural e ffusion. There is some spurring in the thoracic spine. The sternum is intact. There is no compression fracture. I see no bony destructive process. IMPRESSION: No evidence of pulmonary embolism. Mild aneurysm of the ascending aorta measures 4 cm. No suspicious pulmonary mass.
[2020-11-05] MEDS ORDERED: NITROGLYCERIN SL TABS 0.4 MG TAB SUBLINGUAL PRN (01:34)
[2020-11-05] MEDS ORDERED: HEPARIN SODIUM,PORCINE 5,000 UNIT/ML 1 ML VIAL IV ONE (01:34)
[2020-11-05] MEDS ORDERED: HEPARIN SODIUM,PORCINE 5,000 UNIT/ML 1 ML VIAL IV PRN (01:34)
[2020-11-05] MEDS: HEPARIN SOD,PORK IN 0.45% NACL 25,000 UNIT in 0.45% NACL 1 250ML.BAG IV SCH (02:07)
[2020-11-05 06:21] LABS: Mean Platelet Volume 8.5; Platelet Count 138 k/uL (150-450)
[2020-11-05] MEDS ORDERED: METOPROLOL TARTRATE 25 MG TAB PO SCH (09:00)
[2020-11-05] MEDS ORDERED: SODIUM CHLORIDE 0.9% 1,000 ML IV STA (09:28)
[2020-11-05] MEDS: atenoloL 25 MG TAB PO SCH (09:43)
[2020-11-05] MEDS: amLODIPine 10 MG TAB PO SCH (09:43)
--- NOTE | 2020-11-05 09:43 | P.CRDCN ---
History of Present Illness History of present illness: HISTORY OF PRESENTING ILLNESS This is a pleasant 70-year-old male past medical history significant for coronary artery disease status post PCI to the proximal second diagonal branch in 2005 in the setting of a myocardial infarction, hypertension, dyslipidemia and chronic nicotine dependence. He follows in the office with Dr. Begum. We have been asked to see in consultation for chest pain. He states yesterday he was referred shopping with his when he felt the discomfort in the left precordial region. The pain is described as a tight sensation that radiated from the anterior chest wall to the left axilla intermittently. There is no radiation down the arm, into the back, into the neck or the jaw. He denies associated shortness of breath, dizziness, palpitations, nausea, vomiting or diaphoresis. He didn't notice an associated headache prompting his to check his blood pressure which was 200/100. When he got home he took some [employer] [place] which she felt like did somewhat relieve his discomfort. For dinner he had tacos and ice cream and his pain returned prompting him to come to the emergency department. DIAGNOSTICS Initial EKG reveals sinus mechanism heart rate of 73 with poor R-wave progression. Repeat EKG reveals ST depression in the high lateral leads. Telemetry tracings unremarkable for an acute arrhythmia. Chest xray negative for an acute cardiopulmonary process with underlying cardiomegaly. CTA of the chest is negative for pulmonary embolism with evidence of aneurysm of the ascending aorta measuring 4 cm. Laboratory reviewed, WBC 12.6, hemoglobin 15.3, platelets 138, d-dimer 2.46, sodium 140, potassium 5.1, creatinine 1.58, magnesium 2.2, troponin 0.058, 0.407 and 0.582. Current cardiac medications include atenolol 25 mg daily, amlodipine 10 mg daily, losartan/HCTZ 50/12.5 mg in the morning and losartan 50 mg at bedtime and Zetia 10 mg daily. Most recent echocardiogram obtained in the office in 2018 revealed preserved LV systolic function with ejection fraction 60% with normal diastolic function. Most recent stress test performed in the office November 2018 revealed primarily fixed defect in the mid and distal anterior wall with no evidence of reversibility. REVIEW OF SYSTEMS At the time of my exam: CONSTITUTIONAL: Denies fever or chills. CARDIOVASCULAR: Denies chest pain, shortness of breath, orthopnea, PND or palp itations. RESPIRATORY: Denies cough. GASTROINTESTINAL: Denies abdominal pain, diarrhea, constipation, nausea or vomiting. MUSCULOSKELETAL: Denies myalgias. NEUROLOGIC: Denies numbness, tingling or weakness. ENDOCRINE: Denies fatigue, weight change, polydipsia or polyurina. GENITOURINARY: Denies burning, hematuria or urgency with micturation. HEMATOLOGIC: Denies history of anemia or bleeding. PHYSICAL EXAMINATION Blood pressure 158/105 heart rate 63 afebrile and maintaining oxygen saturation on room air. CONSTITUTIONAL: No apparent distress. HEENT: Head is normocephalic. Pupils are equal, round. Sclerae anicteric. Mucous membranes of the mouth are moist. No JVD. No carotid bruit. CHEST EXAMINATION: Lungs are clear to auscultation. No chest wall tenderness is noted on palpation or with deep breathing. HEART EXAMINATION: Regular rate and rhythm. S1, S2 heard. No murmurs, gallops or rub. ABDOMEN: Soft, nontender. Positive bowel sounds. EXTREMITIES: 2+ peripheral pulses, no lower extremity edema and no calf tenderness. NEUROLOGIC EXAMINATION: Patient is awake, alert and oriented x3. ASSESSMENT Non-ST elevated myocardial infarction Acute kidney injury Leukocytosis Coronary artery disease status post PCI Hypertension Dyslipidemia Chronic nicotine dependence PLAN Obtain 2-D echocardiogram and Doppler study to assess cardiac structure and function. Repeat renal function this morning. Continue IV fluid hydration. Hold losartan and hydrochlorothiazide this morning pending repeat renal function. He will require cardiac catherization pending renal function. This will be tenta tively planned for tomorrow with Dr. Begum. Further recommendations to follow based on clinical course. Thank you kindly for this consultation. Nurse Practitioner note has been reviewed, I agree with a documented findings and plan of care. Patient was seen and examined. Past Medical History Past Medical History: Chest Pain / Angina, Hypertension History of Any Multi-Drug Resistant Organisms: None Reported Past Surgical History: Heart Catheterization With Stent Past Psychological History: No Psychological Hx Reported Smoking Status: Current every day smoker Past Alcohol Use History: Occasional Past Drug Use History: None Reported Medications and Allergies Home Medications Medication Instructions Recorded Confirmed Type Ezetimibe [Zetia] 10 mg PO DAILY 07/24/19 11/04/20 History Tadalafil [Cialis] 5 mg PO DAILY 07/24/19 11/04/20 History Tamsulosin HCl [Flomax] 0.4 mg PO DAILY 07/24/19 11/04/20 History Vit C/E/Zn/Coppr/Lutein/Zeaxan 1 cap PO BID 07/24/19 11/04/20 History [Preservision Areds 2 Softgel] amLODIPine [Norvasc] 10 mg PO DAILY 07/24/19 11/04/20 History atenoloL [Atenolol] 25 mg PO DAILY 07/24/19 11/04/20 History Losartan Potassium 50 mg PO HS 11/04/20 11/04/20 History Losartan-Hctz 50-12.5 mg [Hyzaar 1 tab PO DAILY 11/04/20 11/04/20 History 50-12.5] Allergies Allergy/AdvReac Type Severity Reaction Status Date / Time No Known Allergies Allergy Verified 11/04/20 22:59 Physical Exam Vitals: Vital Signs Temp Pulse Resp BP Pulse Ox 11/05/20 06:30 64 18 156/93 97 11/05/20 06:00 65 16 164/94 95 11/05/20 05:30 63 17 164/96 98 11/05/20 05:00 64 18 153/92 98 11/05/20 04:30 72 19 147/110 100 11/05/20 04:00 74 16 149/92 98 11/05/20 03:30 68 16 133/102 97 11/05/20 03:00 84 20 136/95 98 11/05/20 02:43 78 17 136/95 95 11/05/20 01:00 79 18 142/92 98 11/05/20 00:30 78 18 171/93 98 11/05/20 00:00 79 16 149/93 96 11/04/20 23:30 79 16 153/94 96 11/04/20 23:00 79 18 190/110 95 11/04/20 22:30 76 18 202/113 95 11/04/20 21:28 98.6 F 87 18 212/113 98 Intake and Output 11/04/20 11/05/20 11/05/20 22:59 06:59 14:59 Intake Total 65.314 Balance 65.314 Intake: Intake, IV Titration 65.314 Amount Heparin Sod,Pork in 0.45% 65.314 NaCl 25,000 unit In 0.45 % NaCl 1 250ml.bag @ 9. 183 UNITS/KG/HR 9.997 mls /hr IV .Q24H [facility] Rx#: [id number] Other: Weight 108.862 kg Results 11/05/20 05:17 11/05/20 09:30 Cardiac Enzymes 11/04/20 11/04/20 11/05/20 Range/Units 22:00 22:01 02:40 AST 36 (17-59) U/L Troponin I 0.058 H* 0.407 H* (0.000-0.034) ng/mL 11/05/20 Range/Units 05:17 AST (17-59) U/L Troponin I 0.582 H* (0.000-0.034) ng/mL Coagulation 11/04/20 11/05/20 Range/Units 22:01 07:57 PT 9.8 (9.0-12.0) sec APTT 24.0 41.2 H (22.0-30.0) sec CBC 11/04/20 11/05/20 Range/Units 22:01 05:17 WBC 12.6 H (3.8-10.6) k/uL RBC 4.83 (4.30-5.90) m/uL Hgb 15.3 (13.0-17.5) gm/dL Hct 45.8 (39.0-53.0) % Plt Count 158 138 L (150-450) k/uL Comprehensive Metabolic Panel 11/04/20 Range/Units 22:00 Sodium 140 (137-145) mmol/L Potassium 5.1 (3.5-5.1) mmol/L Chloride 110 H (98-107) mmol/L Carbon Dioxide 23 (22-30) mmol/L BUN 46 H (9-20) mg/dL Creatinine 1.58 H (0.66-1.25) mg/dL Glucose 136 H (74-99) mg/dL Calcium 9.3 (8.4-10.2) mg/dL AST 36 (17-59) U/L ALT 30 (4-49) U/L Alkaline Phosphatase 75 (38-126) U/L Total Protein 7.1 (6.3-8.2) g/dL Albumin 4.0 (3.5-5.0) g/dL Current Medications Generic Name Dose Route Start Last Admin Trade Name Freq PRN Reason Stop Dose Admin Aspirin 325 mg 11/06/20 09:00 Aspirin 325 Mg Tab PO DAILY [facility] Heparin Sodium (Porcine) 0 unit 11/05/20 01:34 11/05/20 08:37 Heparin Sodium,Porcine 5,000 Unit/Ml 1 Ml Vial IV 2,721.5 unit Q6HR PRN Administration Low PTT Protocol Heparin Sodium/Sodium Chloride 250 mls @ 9.997 mls/hr 11/05/20 01:45 11/05/20 08:39 25,000 unit/ Sodium Chloride IV 11.01 units/kg/hr .Q24H [facility] 11.99 mls/hr Titration Protocol 9.183 UNITS/KG/HR Sodium Chloride 1,000 mls @ 100 mls/hr 11/05/20 09:28 Saline 0.9% IV 11/05/20 19:27 .Q10H ST[facility] Metoprolol Tartrate 25 mg 11/05/20 09:00 Metoprolol Tartrate 25 Mg Tab PO BID [facility] Nitroglycerin 0.4 mg 11/05/20 01:34 Nitroglycerin Sl Tabs 0.4 Mg Tab SUBLINGUAL Q5M PRN Chest Pain Intake and Output 11/04/20 11/05/20 11/05/20 22:59 06:59 14:59 Intake Total 65.314 Balance 65.314 Intake: Intake, IV Titration 65.314 Amount Heparin Sod,Pork in 0.45% 65.314 NaCl 25,000 unit In 0.45 % NaCl 1 250ml.bag @ 9. 183 UNITS/KG/HR 9.997 mls /hr IV .Q24H [facility] Rx#: [id number] Other: Weight 108.862 kg 11/05/20 05:17 11/04/20 22:00
[2020-11-05 11:12] LABS: Calcium 8.9 mg/dL (8.4-10.2)
[2020-11-05 11:14] LABS: Potassium 4.1 mmol/L (3.5-5.1)
--- NOTE | 2020-11-05 12:00 | ECHOF ---
Referral Reason:nstemi MEASUREMENTS -------- HEIGHT: 188.0 cm WEIGHT: 108.9 kg BP: 158/105 RVIDd: 3.9 cm (< 3.3) IVSd: 1.8 cm (0.6 - 1.1) LVIDd: 4.8 cm (3.9 - 5.3) LVPWd: 1.6 cm (0.6 - 1.1) IVSs: 2.1 cm LVIDs: 2.8 cm LVPWs: 2.2 cm LA Diam: 4.6 cm (2.7 - 3.8) Ao Diam: 3.2 cm (2.0 - 3.7) AV Cusp: 2.2 cm (1.5 - 2.6) MV EXCURSION: 10.412 mm (> 18.000) MV EF SLOPE: 86 mm/s (70 - 150) EPSS: 1.3 cm MV E Gorge: 0.65 m/s MV DecT: 290 ms MV A Gorge: 1.05 m/s MV E/A Ratio: 0.62 RAP: 5.00 mmHg RVSP: 22.84 mmHg FINDINGS -------- Sinus rhythm. This was a technically difficult study with suboptimal views. The left ventricular size is normal. There is severe concentric left ventricular hypertrophy. Ove rall left ventricular systolic function is low-normal with, an EF 50%. Basal inferior LV wall motion is hypokinetic. Basal inferoseptal LV wall motion is normal. Apical lateral LV wall motion is h ypokinetic. The right ventricle is moderate to severely enlarged. The left atrium is moderately dilated. The right atrium was not well visualized. xx ml of Lumason was utilized for enhancement of images. Interatrial and interventricular septum intact. There is no evidence of aortic regurgitation. There is no evidence of aortic stenosis. Mild mitral regurgitation is present. Mild tricuspid regurgitation present. There is no evidence of pulmonary hypertension. The right v entricular systolic pressure, as measured by Doppler, is 22.84mmHg. There is no pulmonic regurgitation present. The aortic root size is normal. IVC Not well visulized. There is no pericardial effusion. CONCLUSIONS -------- 1. The left ventricular size is normal. 2. There is severe concentric left ventricular hypertrophy. 3. Overall left ventricular systolic function is low-normal with, an EF 50 %. 4. Basal inferior LV wall motion is hypokinetic. 5. Basal inferoseptal LV wall motion is normal. 6. Apical lateral LV wall motion is hypokinetic. 7. The right ventricle is moderate to severely enlarged. 8. The left atrium is moderately dilated. 9. Mild mitral regurgitation is present. 10. Mild tricuspid regurgitation present. MANGLE ROLLER: Deepti Joy RDCS
[2020-11-05] MEDS ORDERED: ALPRAZolam 0.25 MG TAB PO PRN (13:18)
[2020-11-05] MEDS ORDERED: ALPRAZolam 0.5 MG TAB PO PRN (13:18)
--- NOTE | 2020-11-05 13:18 | P.HPIM ---
History of Present Illness Patient is a pleasant 70-year-old male with known history of coronary artery disease and feces in the past came in with compensative chest pain which started last night with some improvement with [place] last night and started having pain again in the precordial area pressure-like sensation and sharp pain that radiated into the left axillary area denied any diaphoresis or associated shortness of breath. Patient chest pain is not associated with nausea. Patient just pain is nonpruritic in nature. Patient did get a CT angios the chest which did not show any pulmonary embolism. Patient has mildly elevated troponins firs t troponin being 0.05 and second one being 0.5. Patient is on IV heparin at this time. Patient had a CT angios today because of which patient may not be able to get the ration has borderline kidney function with a creatinine of 1.58 baseline creatinine is around 1.3 patient is presently receiving IV fluids and holding off on ELI inhibitor and diuretics at this time. Review of Systems REVIEW OF SYSTEMS: CONSTITUTIONAL: No fever, no malaise, no fatigue. HEENT: No recent visual problems or hearing problems. Denied any sore throat. CARDIOVASCULAR: No orthopnea, PND, no palpitations, no syncope. PULMONARY: No shortness of breath, no cough, no hemoptysis. GASTROINTESTINAL: No diarrhea, no nausea, no vomiting, no abdominal pain. NEUROLOGICAL: No headaches, no weakness, no numbness. HEMATOLOGICAL: Denies any bleeding or petechiae. GENITOURINARY: Denies any burning micturition, frequency, or urgency. MUSCULOSKELETAL/RHEUMATOLOGICAL: Denies any joint pain, swelling, or any muscle pain. ENDOCRINE: Denies any polyuria or polydipsia. The rest of the 14-point review of systems is negative. Past Medical History Past Medical History: Chest Pain / Angina, Hypertension History of Any Multi-Drug Resistant Organisms: None Reported Past Surgical History: Heart Catheterization With Stent Past Psychological History: No Psychological Hx Reported Smoking Status: Current every day smoker Past Alcohol Use History: Occasional Past Drug Use History: None Reported Medications and Allergies Home Medications Medication Instructions Recorded Confirmed Type Ezetimibe [Zetia] 10 mg PO DAILY 07/24/19 11/04/20 History Tadalafil [Cialis] 5 mg PO DAILY 07/24/19 11/04/20 History Tamsulosin HCl [Flomax] 0.4 mg PO DAILY 07/24/19 11/04/20 History Vit C/E/Zn/Coppr/Lutein/Zeaxan 1 cap PO BID 07/24/19 11/04/20 History [Preservision Areds 2 Softgel] amLODIPine [Norvasc] 10 mg PO DAILY 07/24/19 11/04/20 History atenoloL [Atenolol] 25 mg PO DAILY 07/24/19 11/04/20 History Losartan Potassium 50 mg PO HS 11/04/20 11/04/20 History Losartan-Hctz 50-12.5 mg [Hyzaar 1 tab PO DAILY 11/04/20 11/04/20 History 50-12.5] Allergies Allergy/AdvReac Type Severity Reaction Status Date / Time No Known Allergies Allergy Verified 11/04/20 22:59 Physical Exam Vitals: Vital Signs Temp Pulse Resp BP Pulse Ox 11/05/20 11:24 98.3 F 62 18 150/100 95 11/05/20 09:33 63 18 158/105 98 11/05/20 06:30 64 18 156/93 97 11/05/20 06:00 65 16 164/94 95 11/05/20 05:30 63 17 164/96 98 11/05/20 05:00 64 18 153/92 98 11/05/20 04:30 72 19 147/110 100 11/05/20 04:00 74 16 149/92 98 11/05/20 03:30 68 16 133/102 97 11/05/20 03:00 84 20 136/95 98 11/05/20 02:43 78 17 136/95 95 11/05/20 01:00 79 18 142/92 98 11/05/20 00:30 78 18 171/93 98 11/05/20 00:00 79 16 149/93 96 11/04/20 23:30 79 16 153/94 96 11/04/20 23:00 79 18 190/110 95 11/04/20 22:30 76 18 202/113 95 11/04/20 21:28 98.6 F 87 18 212/113 98 Intake and Output 11/04/20 11/05/20 11/05/20 22:59 06:59 14:59 Intake Total 65.314 Balance 65.314 Intake: Intake, IV Titration 65.314 Amount Heparin Sod,Pork in 0.45% 65.314 NaCl 25,000 unit In 0.45 % NaCl 1 250ml.bag @ 9. 183 UNITS/KG/HR 9.997 mls /hr IV .Q24H [facility] Rx#: [id number] Other: Weight 108.862 kg PHYSICAL EXAMINATION: GENERAL: The patient is alert and oriented x3, not in any acute distress. Well developed, well nourished. HEENT: Pupils are round and equally reacting to light. EOMI. No scleral icterus. No conjunctival pallor. Normocephalic, atraumatic. No pharyngeal erythema. No thyromegaly. CARDIOVASCULAR: S1 and S2 present. No murmurs, rubs, or gallops. PULMONARY: Chest is clear to auscultation, no wheezing or crackles. ABDOMEN: Soft, nontender, nondistended, normoactive bowel sounds. No palpable organomegaly. MUSCULOSKELETAL: No joint swelling or deformity. EXTREMITIES: No cyanosis, clubbing, or pedal edema. NEUROLOGICAL: Gross neurological examination did not reveal any focal deficits. SKIN: No rashes. Results CBC & Chem 7: 11/05/20 05:17 11/05/20 09:30 Labs: Abnormal Lab Results - Last 24 Hours (Table) 11/04/20 11/04/20 11/04/20 Range/Units 22:00 22:01 22:01 WBC 12.6 H (3.8-10.6) k/uL Plt Count (150-450) k/uL Neutrophils # 9.0 H (1.3-7.7) k/uL APTT (22.0-30.0) sec D-Dimer (<0.60) mg/L FEU Chloride 110 H (98-107) mmol/L Carbon Dioxide (22-30) mmol/L BUN 46 H (9-20) mg/dL Creatinine 1.58 H (0.66-1.25) mg/dL Glucose 136 H (74-99) mg/dL Troponin I 0.058 H* (0.000-0.034) ng/mL 11/04/20 11/05/20 11/05/20 Range/Units 22:01 02:40 05:17 WBC (3.8-10.6) k/uL Plt Count (150-450) k/uL Neutrophils # (1.3-7.7) k/uL APTT (22.0-30.0) sec D-Dimer 2.46 H (<0.60) mg/L FEU Chloride (98-107) mmol/L Carbon Dioxide (22-30) mmol/L BUN (9-20) mg/dL Creatinine (0.66-1.25) mg/dL Glucose (74-99) mg/dL Troponin I 0.407 H* 0.582 H* (0.000-0.034) ng/mL 11/05/20 11/05/20 11/05/20 Range/Units 05:17 07:57 09:30 WBC (3.8-10.6) k/uL Plt Count 138 L (150-450) k/uL Neutrophils # (1.3-7.7) k/uL APTT 41.2 H (22.0-30.0) sec D-Dimer (<0.60) mg/L FEU Chloride 114 H (98-107) mmol/L Carbon Dioxide 20 L (22-30) mmol/L BUN 35 H (9-20) mg/dL Creatinine 1.31 H (0.66-1.25) mg/dL Glucose 104 H (74-99) mg/dL Troponin I (0.000-0.034) ng/mL Assessment and Plan Plan: -Acute non-ST elevation myocardial infarction: Patient will be continued on IV heparin hospital. Cardiac catheterization tomorrow can continue with IV fluids, Cardizem is being obtained -Acute kidney injury on chronic kidney disease stage III: Acute kidney injury is probably secondary to antidepressant medications which will be held most probably prerenal azotemia lisinopril and hydrochlorothiazide will be held -Leukocytosis reactive without any evidence of infection -hypertension -Hyperlipidemia --Nicotine dependence: Counseling was provided -Hyperlipidemia
[2020-11-05] MEDS: ATORVASTATIN 40 MG TAB PO SCH (21:20)
[2020-11-06] MEDS: HEPARIN SOD,PORK IN 0.45% NACL 25,000 UNIT in 0.45% NACL 1 250ML.BAG IV SCH (04:28)
[2020-11-06] MEDS ORDERED: ATORVASTATIN 80 MG TAB PO ONE (06:00)
[2020-11-06] MEDS ORDERED: ASPIRIN 325 MG TAB PO ONE (06:00)
[2020-11-06] MEDS: amLODIPine 10 MG TAB PO SCH (08:42)
[2020-11-06] MEDS: atenoloL 25 MG TAB PO SCH (08:42)
[2020-11-06] MEDS: TAMSULOSIN 0.4 MG CAP.ER.24H PO SCH (08:42)
[2020-11-06] MEDS ORDERED: ASPIRIN 325 MG TAB PO SCH (09:00)
[2020-11-06] MEDS ORDERED: ASPIRIN 81 MG PO SCH (09:00)
[2020-11-06 09:58] LABS: Mean Platelet Volume 9.5; Platelet Count 154 k/uL (150-450)
[2020-11-06 10:22] LABS: Calcium 8.9 mg/dL (8.4-10.2); Potassium 4.3 mmol/L (3.5-5.1)
[2020-11-06] MEDS ORDERED: LIDOCAINE 1% INJ 10MG/ML (20 ML MDV) ONE (11:43)
[2020-11-06] MEDS ORDERED: VERAPAMIL 2.5 MG/ML 2 ML AMP ONE (11:43)
[2020-11-06] MEDS ORDERED: fentaNYL (PF) 50 MCG/ML 2 ML AMP ONE (11:44)
[2020-11-06] MEDS ORDERED: SODIUM CHLORIDE 0.9% 500 ML 500 ML IV ONE (11:49)
[2020-11-06] MEDS ORDERED: fentaNYL (PF) 50 MCG/ML 2 ML AMP IV ONE (11:49)
[2020-11-06] MEDS ORDERED: VERAPAMIL SYRINGE (5 MG/10 ML) INTRAARTER ONE (11:52)
[2020-11-06] MEDS ORDERED: LIDOCAINE 1% INJ 10MG/ML (10 ML MDV) SQ ONE (11:52)
[2020-11-06] MEDS ORDERED: HEPARIN SODIUM 1,000 UN/ML (10ML VL) ONE (12:00)
[2020-11-06] MEDS: HEPARIN SODIUM 1,000 UN/ML (10ML VL) IV ONE ×2 (12:01→12:21)
[2020-11-06] MEDS ORDERED: IOPAMIDOL-370 125ML BTL INJ ONE ×2 (12:02)
[2020-11-06] MEDS ORDERED: MIDAZOLAM 2 MG/2 ML VIAL IV ONE (12:04)
[2020-11-06] MEDS ORDERED: CLOPIDOGREL 75 MG TAB ONE (12:16)
[2020-11-06] MEDS ORDERED: CLOPIDOGREL 75 MG TAB PO ONE (12:20)
[2020-11-06] MEDS ORDERED: IOPAMIDOL-370 100ML BTL INJ ONE (12:28)
[2020-11-06] MEDS ORDERED: ATROPINE SULFATE 0.1 MG/ML 10ML SYRINGE IV PRN (12:59)
[2020-11-06] MEDS ORDERED: MAG HYDROX/AL HYDROX/SIMETH 30 ML CUP PO PRN (12:59)
[2020-11-06] MEDS ORDERED: ZOLPIDEM 5 MG TAB PO PRN (12:59)
[2020-11-06] MEDS ORDERED: NITROGLYCERIN SL TABS 0.4 MG TAB SUBLINGUAL PRN (12:59)
[2020-11-06] MEDS ORDERED: RX INFO: IV CONTRAST WAS GIVEN 1 EACH MISC MISCELLANE PRN (12:59)
[2020-11-06] MEDS ORDERED: SODIUM CHLORIDE 0.9% 1,000 ML IV SCH (13:00)
[2020-11-06 15:33] VITALS: BMI 30.4
--- NOTE | 2020-11-06 16:06 | CC ---
CARDIAC CATHETERIZATION REPORT Mr. Cotto is a 70-year-old male with known history of coronary artery disease, status post percutaneous revascularization of his diagonal branch in 2004, history of chronic tobacco use, noncompliance, who presented with new onset angina pectoris and had evidence of non ST-segment elevation myocardial infarction. In view of that, recommendation made regarding cardiac catheterization. The procedures, risks, and complication were discussed with the patient who is in full understanding and agreement. PROCEDURE: Patient was brought to the cath lab radiological technologist in a fasting semi-sedated state after receiving fentanyl and Benadryl and achieving moderate conscious sedated state. Using Xylocaine anesthesia such Seldinger technique, a 6-Burmese sheath was introduced in the right radial artery. Selective right coronary angiography performed using 5-Burmese 3.5 bend right Hazel catheter, attempt to cannulate the left main using a 5-Burmese 3.5 bend left Hazel, 4 bend left Hazel, a 6-Burmese Mayda catheter were unsuccessful. Subsequently, a 6-Burmese LBU 3.75 guiding catheter introduced and was successful in cannulating the left main. Images of the coronary arteries were obtained. Following that, catheters were removed. Images were obtained. Of note, the patient received 5000 units of intravenous heparin as well as intra-arterial verapamil. FINDINGS: LEFT MAIN: This is a large-sized vessel, bifurcating into left circumflex, left anterior descending artery. Left main coronary artery has no evidence of high-grade stenosis. LEFT ANTERIOR DESCENDING CORONARY ARTERY: This is a large-sized vessel, reaching toward the apex with a wraparound apex segment giving rise to 2 diagonal branches, the second diagonal branch is a distended segment and it has about a 50% in-stent restenosis. The LAD has mild intimal disease in the proximal mid segment of 10%-20%. LEFT CIRCUMFLEX" This is a nondominant vessel, moderate in caliber, giving rise to to 2 obtuse marginal branches. The left circumflex has mild intimal disease without any evidence of high-grade stenosis. RIGHT CORONARY ARTERY: This is a large dominant vessel, bifurcating distally into PDA and posterolateral segment branches. The right coronary artery proximally has a 99% stenosis. The rest of the vessel has no high-grade stenosis. LEFT VENTRICULOGRAM: Left ventriculogram was not performed. CONCLUSION: 1. Critical stenosis involving the proximal right coronary artery. 2. Moderate in-stent restenosis of the diagonal branch. 3. Mild disease in the LAD and left circumflex. RECOMMENDATION: In view of finding anatomy, I recommend proceeding with angioplasty and stenting of the RCA. The procedures, risks, and complication were discussed with the patient, who is in full understanding and agreement. MMODL / IJN: [id number] /
--- NOTE | 2020-11-06 16:06 | PTCA ---
PERCUTANEOUSTRANS CORORONARY ANGIOGRAPHY Mr. Cotto is a 70-year-old male with known history of coronary artery disease who presented with non ST-segment elevation myocardial infarction, underwent cardiac catheterization was found to have critical stenosis involving the proximal right coronary artery. In view of that, recommendation regarding angioplasty and stenting, the procedures, risks, and complication were discussed with the patient who is in full understanding and agreement. PROCEDURE: A 6-Welsh 0.75 left Amplatz guiding catheter introduced into the system after cannulating the left main, a 0.014 balanced medium weight J-wire was advanced across the lesion, positioned distally, then a 2.5 x 12 mm NC Trek balloon was advanced and one inflation at 10 atmospheres was done. Following that the balloon was removed and a 3.5 x 18 mm Xience Gail stent was advanced, deployed and post dilated at 16 atmospheres. Following that, the balloon was removed and a 4.0 x 8 mm NC Trek balloon was advanced and inflation of the proximal segment of the stent was done at 14 atmospheres. Following that, the balloon and the guidewire were withdrawn back in the guiding catheter. Images were obtained and repeated. Those images reveal stable successful stenting. At that point, the guiding catheter, the balloon and the guidewire were removed. The sheath was removed, hemostasis was obtained with deployment of a TR band. There was no immediate complication. Patient is returned to his room in stable condition. Of note, the patient had chest discomfort and EKG changes with the inflation that resulted in procedure. He received a total of 8000 units of intravenous heparin throughout the procedure, his ACT was followed. He has received an oral loading dose of clopidogrel. RESULTS: Successful stenting of the proximal right coronary artery with reduction of stenosis from 99% to 0%. RECOMMENDATION: Patient be continued on aspirin, Plavix, ELI inhibitor, statin. The importance of dual antiplatelet treatment were discussed with the patient and he is full understanding and agreement. Duration of sedation is 51 minutes. MMODL / IJN: [id number] /
--- NOTE | 2020-11-06 16:12 | LTR ---
DATE OF SERVICE: 11/06/2020 RE: Nirmal Cotto Dear Dr. Stevens; I had the pleasure to perform cardiac catheterization and coronary angioplasty and stenting on Mr. Cotto at [facility] on November 06, 2020 and a full copy of the procedure note will be forwarded to you. In brief, he was found to have critical stenosis involving the proximal right coronary artery, underwent successful stenting of that vessel using a drug-eluting stent and hopefully this procedure will stabilize his status. Thank you again for allowing me to participate in this patient's personal care. Please feel free to call for any questions. Sincerely yours, Nii Begum MD MMTADEOL / LUISN: [id number] /
[2020-11-06] MEDS: ATORVASTATIN 40 MG TAB PO SCH (20:49)
[2020-11-07 04:13] VITALS: RESP 16
[2020-11-07] MEDS: TAMSULOSIN 0.4 MG CAP.ER.24H PO SCH (07:45)
[2020-11-07] MEDS: amLODIPine 10 MG TAB PO SCH (07:45)
[2020-11-07] MEDS: atenoloL 25 MG TAB PO SCH (07:45)
[2020-11-07 07:50] VITALS: BP 150/70; PULSE 68; TEMP 98.2
[2020-11-07 08:40] LABS: Mean Platelet Volume 7.9; Platelet Count 143 k/uL (150-450)
[2020-11-07 08:50] LABS: Calcium 8.6 mg/dL (8.4-10.2); Potassium 4.4 mmol/L (3.5-5.1)
[2020-11-07] MEDS ORDERED: ASPIRIN 81 MG PO SCH (09:00)
--- NOTE | 2020-11-07 11:39 | P.PN ---
Subjective HISTORY OF PRESENTING ILLNESS This is a pleasant 70-year-old male past medical history significant for coronary artery disease status post PCI to the proximal second diagonal branch in 2004 in the setting of a myocardial infarction, hypertension, dyslipidemia and chronic nicotine dependence. He follows in the office with Dr. Begum. He is seen and examined sitting up in the chair reading a book in no acute distress. He underwent successful PCI to the PLV branch yesterday with Dr. Begum. Currently maintained on dual antiplatelet therapy. He also had a 50% in-stent restenosis of the previously stented LAD. Blood pressure 150/70 heart rate 68 afebrile maintaining oxygen saturation on room air. Laboratory data reviewed, sodium 139, potassium 4.4, creatinine 1.37. PHYSICAL EXAMINATION CONSTITUTIONAL: No apparent distress. HEENT: Head is normocephalic. Pupils are equal, round. Sclerae anicteric. Mucous membranes of the mouth are moist. No JVD. No carotid bruit. CHEST EXAMINATION: Lungs are clear to auscultation. No chest wall tenderness is noted on palpation or with deep breathing. HEART EXAMINATION: Regular rate and rhythm. S1, S2 heard. No murmurs, gallops or rub. EXTREMITIES: 2+ peripheral pulses, no lower extremity edema and no calf tenderness. ASSESSMENT Non-ST elevated myocardial infarction Acute kidney injury Leukocytosis Coronary artery disease status post PCI Hypertension Dyslipidemia Chronic nicotine dependence PLAN Dual antiplatelet therapy discussed with the patient. Prescriptions have been sent to the pharmacy. He is also agreeable to attempt taking Lipitor. He has a follow-up with Dr. Begum as scheduled for Monday. Stable for discharge from a cardiac perspective. Smoking cessation discussed. Nurse Practitioner note has been reviewed, I agree with a documented findings and plan of care. Patient was seen and examined. Objective - Vital Signs Vital signs: Vital Signs Temp 98.2 F 11/07/20 07:49 Pulse 68 11/07/20 07:49 Resp 16 11/07/20 07:49 BP 150/70 11/07/20 07:49 Pulse Ox 96 11/07/20 07:49 Intake & Output 11/06/20 11/07/20 11/07/20 18:59 06:59 18:59 Intake Total 340 840 240 Output Total 100 Balance 240 840 240 Weight 107.5 kg 108.2 kg Intake: IV 100 Oral 240 840 240 Output: Urine 100 Other: Voiding Method Toilet Toilet # Voids 2 1 - Labs CBC & Chem 7: 11/07/20 08:25 12 08:25 Labs: Abnormal Lab Results - Last 24 Hours (Table) 11/07/20 11/07/20 Range/Units 08:25 08:25 Plt Count 143 L (150-450) k/uL Chloride 109 H (98-107) mmol/L BUN 28 H (9-20) mg/dL Creatinine 1.37 H (0.66-1.25) mg/dL Glucose 173 H (74-99) mg/dL
[2020-11-07] MEDS ORDERED: CLOPIDOGREL 75 MG TAB PO SCH (12:00)
[2020-11-07] MEDS ORDERED: LOSARTAN 50 MG TAB PO SCH (21:00)
== END 2020-11-07 11:04 | disposition home or self-care (01) | DRG 247 ==
LOC: EC 21:26 → 3SCARD 11-05 01:35 → OBSVTOIN 11-05 09:59 → 3SCARD 11-05 11:11
PROVIDERS: ADMIT Hospitalist; ATTEND Hospitalist
PROC: 027034Z Dilation of Coronary Artery, One Artery with Drug-eluting Intraluminal Device, Percutaneous Approach (ICD-10-PCS; principal; 2020-11-06 13:30)
PROC: B2111ZZ Fluoroscopy of Multiple Coronary Arteries using Low Osmolar Contrast (ICD-10-PCS; principal; 2020-11-06 13:30)
DX: I21.4 Non-ST elevation (NSTEMI) myocardial infarction (principal); N17.9 Acute kidney failure, unspecified; N18.30 Chronic kidney disease, stage 3 unspecified; I12.9 Hypertensive chronic kidney disease with stage 1 through stage 4 chronic kidney disease, or unspecified chronic kidney disease; I25.10 Atherosclerotic heart disease of native coronary artery without angina pectoris; E78.5 Hyperlipidemia, unspecified; T43.205A Adverse effect of unspecified antidepressants, initial encounter; T46.4X5A Adverse effect of angiotensin-converting-enzyme inhibitors, initial encounter; T50.2X5A Adverse effect of carbonic-anhydrase inhibitors, benzothiadiazides and other diuretics, initial encounter; I25.2 Old myocardial infarction; D72.829 Elevated white blood cell count, unspecified; F17.200 Nicotine dependence, unspecified, uncomplicated; Z71.6 Tobacco abuse counseling; Z79.899 Other long term (current) drug therapy; Z95.5 Presence of coronary angioplasty implant and graft
CPT/HCPCS: 36415; 71045; 71275; 80048; 80053; 80061; 83690; 83735; 84484; 85025; 85049; 85379; 85610; 85730; 93005; 93306; 93454; 96361; 96365; 96366; 96375; 96376; 99291

== ENCOUNTER → 2021-01-22 | Outpatient (CLI) | payer MEDICARE ==
[2021-01-22 18:31] LABS: African American GFR (CKD) 49.5 (60.0-200.0); Albumin 3.8 g/dL (3.80-4.90); Albumin/Globulin Ratio 1.31 (1.60-3.17); Anion Gap 7.4 mmol/L (4.00-12.00); BUN/Creat Ratio 25.63 Ratio (12.00-20.00); Calcium 9.3 mg/dL (8.7-10.3); Carbon Dioxide 24.6 mmol/L (21.6-31.8); Chol/HDL Ratio 2.79; Globulin 2.9 g/dL (1.6-3.3); LDL Cholesterol,Calculated 49.2 mg/dL (0.0-131.0); Non-African American GFR(CKD) 42.7 (60.0-200.0); Potassium 4.7 mmol/L (3.5-5.5); Total Bilirubin 0.4 mg/dL (0.3-1.2); Total Protein 6.7 g/dL (6.2-8.2); VLDL Calculation 11.8 mg/dL (5.00-40.00)
== END | disposition home or self-care (01) ==
LOC: LABWHC1 08:46
PROVIDERS: ATTEND Nurse Practitioner Adult Health
DX: I10 Essential (primary) hypertension (principal); E78.2 Mixed hyperlipidemia
CPT/HCPCS: 36415; 80053; 80061

== ENCOUNTER → 2021-02-11 | Outpatient (CLI) | payer MEDICARE ==
[2021-02-11 23:22] LABS: African American GFR (CKD) 49.5 (60.0-200.0); Anion Gap 12.1 mmol/L (4.00-12.00); Carbon Dioxide 23.9 mmol/L (21.6-31.8); Non-African American GFR(CKD) 42.7 (60.0-200.0); Potassium 4.8 mmol/L (3.5-5.5)
== END | disposition home or self-care (01) ==
LOC: LABWHC1 08:32
PROVIDERS: ATTEND Internal Medicine Interventional Cardiology
DX: I10 Essential (primary) hypertension (principal)
CPT/HCPCS: 36415; 80051; 82565; 84520

== ENCOUNTER → 2021-05-15 | Outpatient (CLI) | payer MEDICARE ==
[2021-05-15 12:10] LABS: Basophils # (A) 0.07 X 10*3/uL (0.00-0.10); Basophils % (A) 0.7 %; Eosinophils % (A) 5.2 %; HGB 15.1 g/dL (13.0-17.0); Lymphocytes # (A) 1.29 X 10*3/uL (0.90-5.00); Lymphocytes % (A) 13.5 %; MCH 30.8 pg (27.0-32.0); MCHC 31.5 g/dL (32.0-37.0); MCV 97.8 fL (80.0-97.0); Mean Platelet Volume 11.3 fL (9.5-12.2); Monocytes # (A) 0.82 X 10*3/uL (0.20-1.00); Monocytes % (A) 8.6 %; Neutrophils # (A) 6.85 X 10*3/uL (1.80-7.70); Neutrophils % (A) 71.7 %; Platelet Count 163 X 10*3/uL (140-440); RBC 4.91 X 10*6/uL (4.40-5.60); RDW 13.5 % (11.5-14.5); WBC 9.56 X 10*3/uL (4.50-10.00)
[2021-05-15 13:26] LABS: African American GFR (CKD) 58.2 (60.0-200.0); Albumin/Globulin Ratio 1.82 (1.60-3.17); Anion Gap 6.6 mmol/L (4.00-12.00); BUN/Creat Ratio 21.43 Ratio (12.00-20.00); Calcium 8.8 mg/dL (8.7-10.3); Carbon Dioxide 23.4 mmol/L (21.6-31.8); Chol/HDL Ratio 2.53; Globulin 2.2 g/dL (1.6-3.3); LDL Cholesterol,Calculated 41.2 mg/dL (0.0-131.0); Non-African American GFR(CKD) 50.2 (60.0-200.0); PSA Annual Screen 0.7 ng/mL (0.0-4.0); Potassium 4.8 mmol/L (3.5-5.5); T4, Free (Free Thyroxine) 0.9 ng/dL (0.80-1.80); Total Bilirubin 0.3 mg/dL (0.3-1.2); Total Protein 6.2 g/dL (6.2-8.2); VLDL Calculation 10.8 mg/dL (5.00-40.00)
== END | disposition home or self-care (01) ==
LOC: LABWHC1 08:16
PROVIDERS: ATTEND Internal Medicine Critical Care Medicine
DX: Z00.00 Encounter for general adult medical examination without abnormal findings (principal); N40.0 Benign prostatic hyperplasia without lower urinary tract symptoms; N52.9 Male erectile dysfunction, unspecified; E78.00 Pure hypercholesterolemia, unspecified; I25.10 Atherosclerotic heart disease of native coronary artery without angina pectoris; I10 Essential (primary) hypertension
CPT/HCPCS: 84439; 80061; 80053; 84443; 85025; 36415; G0103

== ENCOUNTER → 2021-11-23 | Outpatient (CLI) | payer MEDICARE ==
[2021-11-23 15:42] LABS: Chol/HDL Ratio 2.96 Ratio; LDL Cholesterol,Calculated 59.3 mg/dL (0.0-131.0); VLDL Calculation 16.94 mg/dL (5.00-40.00)
== END | disposition home or self-care (01) ==
LOC: LABWHC1 07:52
PROVIDERS: ATTEND Internal Medicine Interventional Cardiology
DX: E78.2 Mixed hyperlipidemia (principal)
CPT/HCPCS: 36415; 80061

== ENCOUNTER → 2022-02-22 | Outpatient (CLI) | payer MEDICARE ==
--- NOTE | 2022-02-22 22:59 | CTL ---
EXAMINATION TYPE: CT Low Dose Lung DATE OF EXAM ORDERED: 02/22/2022 HISTORY: Tobacco use. Lung cancer screening CT DLP: 122.[address] CTDI: 3.5 mGy Automated exposure control for dose reduction was used. SCREENING VISIT: Follow-up COMPARISON: CT dated 03/29/2016 and 11/04/2020 TECHNIQUE: Low dose computed tomography scan was performed through the chest at 1 mm thick sections a nd reconstructed images in multiple planes at 1 mm and [address] DIAGNOSTIC QUALITY: Satisfactory FINDINGS: LUNG NODULES: None. Left lung base solid [address] image 227. This nodule is stable since 2016 CT scan. LUNGS: COPD: Severity: Mild Fibrosis: Severity: None Lymph nodes: No pathologically enlarged lymph nodes. Other findings: Diffuse bronchial thickening which may suggest chronic bronchitis. Bilateral basal li near pulmonary atelectasis. RIGHT PLEURAL SPACE: Effusion: None Calcification: None Thickening: None Pneumothorax: None LEFT PLEURAL SPACE: Effusion: None Calcification: None Thickening: None Pneumothorax: None HEART: Heart Size: Normal. Suspected fatty infiltration of the cardiac apex, underlying chronic infarct at t hat location can't be excluded. Coronary Calcification: Moderate Pericardial Effusion: None OTHER FINDINGS: Upper abdomen: None Bony thorax: Degenerative changes of the thoracic spine. No aggressive bone lesion. Supraclavicular region: None Other: The pulmonary trunk measures 4.1 cm suggestive of pulmonary hypertension. Arterial atheroscler otic calcification dilated ascending aorta measuring up to 4.4 cm. IMPRESSION: Stable left basal pulmonary nodule measuring 4 mm consistent with benign nodule. No other definite pulmonary nodule identified. Suspected pulmonary hypertension with dilated ascending aorta measuring up to 4.4 cm. Other incidental findings as described above. CT LUNG RAD AND CT CHEST RECOMMENDATION: Lung-Rad 2 Benign Appearance or Behavior: Continue annual sc reening with LDCT in 12 months. S Modifier (other clinically significant findings): As above
== END | disposition home or self-care (01) ==
LOC: RADCTMAIN 17:34
PROVIDERS: ATTEND Internal Medicine Critical Care Medicine
DX: Z12.2 Encounter for screening for malignant neoplasm of respiratory organs (principal); R91.1 Solitary pulmonary nodule; I77.810 Thoracic aortic ectasia; Z87.891 Personal history of nicotine dependence
CPT/HCPCS: 71271

== ENCOUNTER → 2022-05-27 | Outpatient (CLI) | payer MEDICARE ==
[2022-05-27 14:30] LABS: ALT 31 U/L (10-49); AST 21 U/L (14-35); African American GFR (CKD) 53.1 (60.0-200.0); Albumin 4.1 g/dL (3.8-4.9); Albumin/Globulin Ratio 1.46 (1.60-3.17); Alkaline Phosphatase 111 U/L (41-126); BUN/Creat Ratio 17.73 Ratio (12.00-20.00); Blood Urea Nitrogen 26.6 mg/dL (9.0-27.0); Carbon Dioxide 23.7 mmol/L (20.0-27.5); Chloride 110 mmol/L (96-109); Chol/HDL Ratio 2.49 Ratio; Globulin 2.8 g/dL (1.6-3.3); Glucose 108 mg/dL (70-110); LDL Cholesterol,Calculated 43.6 mg/dL (0.0-131.0); Non-African American GFR(CKD) 45.9 (60.0-200.0); Potassium 4.6 mmol/L (3.5-5.5); Sodium 143 mmol/L (135-145); Total Protein 6.9 g/dL (6.2-8.2); VLDL Calculation 12.72 mg/dL (5.00-40.00)
== END | disposition home or self-care (01) ==
LOC: LABWHC1 08:42
PROVIDERS: ATTEND Internal Medicine Interventional Cardiology
DX: I10 Essential (primary) hypertension (principal); E78.2 Mixed hyperlipidemia
CPT/HCPCS: 36415; 80053; 80061

== ENCOUNTER 2022-06-30 07:54 | Day surgery (SDC) | payer MEDICARE ==
[2022-06-28 15:39] VITALS: BMI 29.0
[~2022-06-30 07:54] MED LIST: LACTATED RINGERS 1,000 ML IV SCH
--- NOTE | 2022-06-30 08:04 | P.GSHP ---
History of Present Illness H&P Date: 06/30/22 CHIEF COMPLAINT: Colon screen HISTORY OF PRESENT ILLNESS: The patient is a 72-year-old male who presents for colon screen. Lower endoscopy was offered for further evaluation and management. PAST MEDICAL HISTORY: Please see list. PAST SURGICAL HISTORY: Please see list. MEDICATIONS: Please see list. ALLERGIES: Please see list. SOCIAL HISTORY: No illicit drug use FAMILY HISTORY: No reports of Crohn disease or ulcerative colitis. REVIEW OF ORGAN SYSTEMS: CONSTITUTIONAL: No reports of fevers or chills. PHYSICAL EXAM: VITAL SIGNS: Stable GENERAL: Well-developed pleasant in no acute distress. HEENT: No scleral icterus. Extraocular movements grossly intact. Moist buccal mucosa. NECK: Supple without lymphadenopathy. CHEST: Unlabored respirations. Equal bilateral excursions. CARDIOVASCULAR: Regular rate and rhythm. Distal 2+ pulses. ABDOMEN: Soft, nontender, nondistended. MUSCULOSKELETAL: No clubbing, cyanosis, or edema. ASSESSMENT: 1. Colon screen. PLAN: 1. Recommend proceeding with a lower endoscopy Past Medical History Past Medical History: Coronary Artery Disease (CAD), Chest Pain / Angina, COPD, CVA/TIA, Hyperlipidemia, Hypertension, Myocardial Infarction (MD), Osteoarthritis (OA) Additional Past Medical History / Comment(s): CAD, Heart cath with stents in 2006, POSS TIA PER PATIENT , Last Myocardial Infarction Date:: 2006 History of Any Multi-Drug Resistant Organisms: None Reported Past Surgical History: Heart Catheterization With Stent Additional Past Surgical History / Comment(s): HEART CATH WITH X2 , Past Anesthesia/Blood Transfusion Reactions: Motion Sickness Date of Last Stent Placement:: 09/2020 Smoking Status: Current every day smoker - Past Family History Father History Unknown: Yes Family Medical History: Cancer Additional Family Medical History / Comment(s): LUNG CANCER Mother History Unknown: Yes Family Medical History: No Reported History Medications and Allergies Home Medications Medication Instructions Recorded Confirmed Type Ezetimibe [Zetia] 10 mg PO DAILY 07/24/19 06/28/22 History Vit C/E/Zn/Coppr/Lutein/Zeaxan 1 cap PO BID 07/24/19 06/28/22 History [Preservision Areds 2 Softgel] amLODIPine [Norvasc] 10 mg PO DAILY 07/24/19 06/28/22 History atenoloL 25 mg PO DAILY 07/24/19 06/28/22 History tadalafiL [Cialis] 5 mg PO DAILY 07/24/19 06/28/22 History Losartan Potassium 50 mg PO HS 11/04/20 06/28/22 History Aspirin EC [Ecotrin Low Dose] 81 mg PO DAILY 06/28/22 06/28/22 History Atorvastatin [Lipitor] 20 mg PO DAILY 06/28/22 06/28/22 History Allergies Allergy/AdvReac Type Severity Reaction Status Date / Time No Known Allergies Allergy Verified 06/29/22 08:07
[2022-06-30 08:20] VITALS: TEMP 98
[2022-06-30] MEDS ORDERED: PROPOFOL 10 MG/ML 20 ML VIAL IV ONE (08:34)
--- NOTE | 2022-06-30 09:08 | P.PCN ---
Date of Procedure: 06/30/22 Description of Procedure: PREOPERATIVE DIAGNOSIS: Colonoscopy screening POSTOPERATIVE DIAGNOSIS: Tubular adenoma cecum Tubular adenoma ascending colon Tubular adenoma hepatic flexure Tubular adenoma transverse colon Tubalar adenoma sigmoid colon Internal hemorrhoids, grade 2 OPERATION: Colonoscopy to the ileocecal valve and appendiceal orifice, cecum Colonoscopy with hot snare polypectomy SURGEON: Isabell Reed MD. ANESTHESIA: MAC. INDICATIONS: The patient is an 72-year-old male who presents for his first colonoscopy screening. Benefits and risks were described and informed consent was obtained. DESCRIPTION OF PROCEDURE: The patient had undergone Sutab prep. The patient had been brought into the operating room and laid in the left lateral decubitus position. After adequate intravenous sedation, the rectum was examined with 2% lidocaine jelly. The prostate was unremarkable. External hemorrhoids were encountered. The rectal tone was within normal limits. No lesions were palpated in the rectal vault. An Olympus colonoscope was advanced until the cecum, ileocecal valve and tony endiceal orifice were clearly viewed. The prep was good. No sigmoid diverticulosis was encountered. Colonic polyps were found and removed. No evidence of focal colitis was found. Retroflexion of the scope demonstrated grade 2 internal hemorrhoids without active bleeding or inflammation. The colon was desufflated. The patient had tolerated the procedure well. Withdrawal time was over 6 minutes. FINDINGS: Aronchick preparation quality scale 2 (1-5) Internal hemorrhoids, grade 2 External hemorrhoids, grade 2 No arteriovenous malformations. Multiple dilated venules throughout the colon No sigmoid diverticulosis Removal of 9 polyps: - Snare polypectomy 30 cm from the anal verge, 5 mm tubulovillous adenoma polyp, sigmoid colon. - Snare polypectomy mid transverse colon, 8 mm villous adenoma polyp. - Snare polypectomy hepatic flexure 2, 8 and 9 mm flat villous adenoma polyp. - Snare polypectomy ascending colon 4, 8 to 15 mm flat villous adenoma polyp. - Snare polypectomy of cecal, 6 mm tubular adenoma polyp. No focal colitis. RECOMMENDATIONS: Given severity of tubular adenomas, recommend repeat colonoscopy 1 year, 2022. Plan - Discharge Summary Discharge Rx Participant: No New Discharge Prescriptions: Continue Vit C/E/Zn/Coppr/Lutein/Zeaxan [Preservision Areds 2 Softgel] 1 cap PO BID tadalafiL [Cialis] 5 mg PO DAILY atenoloL 25 mg PO DAILY amLODIPine [Norvasc] 10 mg PO DAILY Ezetimibe [Zetia] 10 mg PO DAILY Losartan Potassium 50 mg PO HS Atorvastatin [Lipitor] 20 mg PO DAILY Aspirin EC [Ecotrin Low Dose] 81 mg PO DAILY Discharge Medication List Ezetimibe [Zetia] 10 mg PO DAILY 07/24/19 [History] Vit C/E/Zn/Coppr/Lutein/Zeaxan [Preservision Areds 2 Softgel] 1 cap PO BID 07/24/19 [History] amLODIPine [Norvasc] 10 mg PO DAILY 07/24/19 [History] atenoloL 25 mg PO DAILY 07/24/19 [History] tadalafiL [Cialis] 5 mg PO DAILY 07/24/19 [History] Losartan Potassium 50 mg PO HS 11/04/20 [History] Aspirin EC [Ecotrin Low Dose] 81 mg PO DAILY 06/28/22 [History] Atorvastatin [Lipitor] 20 mg PO DAILY 06/28/22 [History] Follow up Appointment(s)/Referral(s): Isabell Reed MD [STAFF PHYSICIAN] - As Needed Patient Instructions/Handouts: *[facility] - (Anesthesia) Endoscopy Discharge Instructions, Colonoscopy (DC), Colorectal Polyps (GEN) Activity/Diet/Wound Care/Special Instructions: Repeat colonoscopy one year, 2022 Discharge Disposition: HOME SELF-CARE
[2022-06-30 09:13] VITALS: RESP 16
[2022-06-30 09:29] VITALS: BP 144/76; PULSE 50
== END 2022-06-30 09:45 | disposition home or self-care (01) ==
LOC: ORWHC2ENDO 07:54
PROVIDERS: ATTEND Surgery Plastic and Reconstructive Surgery
DX: Z12.11 Encounter for screening for malignant neoplasm of colon (principal); D12.2 Benign neoplasm of ascending colon; D12.0 Benign neoplasm of cecum; D12.3 Benign neoplasm of transverse colon; D12.5 Benign neoplasm of sigmoid colon; K64.1 Second degree hemorrhoids; I25.119 Atherosclerotic heart disease of native coronary artery with unspecified angina pectoris; Z95.5 Presence of coronary angioplasty implant and graft; I25.2 Old myocardial infarction; E78.5 Hyperlipidemia, unspecified; I12.9 Hypertensive chronic kidney disease with stage 1 through stage 4 chronic kidney disease, or unspecified chronic kidney disease; N18.9 Chronic kidney disease, unspecified; J44.9 Chronic obstructive pulmonary disease, unspecified; Z86.73 Personal history of transient ischemic attack (TIA), and cerebral infarction without residual deficits; M19.90 Unspecified osteoarthritis, unspecified site; F17.200 Nicotine dependence, unspecified, uncomplicated; Z80.1 Family history of malignant neoplasm of trachea, bronchus and lung; Z79.899 Other long term (current) drug therapy; Z79.82 Long term (current) use of aspirin
CPT/HCPCS: 88305; 45385; J2704

== ENCOUNTER → 2022-08-15 | Outpatient (CLI) | payer MEDICARE ==
--- NOTE | 2022-08-15 14:59 | CT ---
EXAMINATION TYPE: CT abdomen pelvis wo/w con DATE OF EXAM: 08/15/2022 COMPARISON: 02/24/2012 INDICATION: abd aortic aneurysm DLP: 2086 mGycm, Automated exposure control for dose reduction was used. CONTRAST: 80 mL of Isovue 370. Study performed without Oral Contrast TECHNIQUE: Axial images were obtained from above the diaphragm to the pubic rami in the axial plane a t 5 mm thick sections. Reconstructed images are reviewed on the computer in the coronal plane. FINDINGS: Limited CT sections are obtained the lung bases. The lung bases are clear. CT ABDOMEN: Liver: Normal Spleen: Normal Pancreas: Normal Adrenal glands: The adrenal glands are normal. Gallbladder: Normal Kidneys: No masses are evident. No hydronephrosis is present. No cysts are present. Delayed images were obtained through the kidneys, which remain unremarkable. Aorta: Vascular calcification is within the aorta. There is an abdominal aortic aneurysm which begin s infrarenal region and terminates at the bifurcation. Maximum diameter is 5.5 cm. There is some mild prominence of the bilateral common iliac arteries larger on the right measuring 2. 2 cm. 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 This termi nates at the bifurcation Inferior vena cava: Normal. CT PELVIS: Loops of bowel within the abdomen and pelvis are normal. There are loops of bowel which are incom pletely distended or lack oral contrast limiting their evaluation. Appendix: Not Identified. No dilated tubular structure or inflammatory changes evident. Urinary bladder: Some wall thickening is not excluded. Consider additional evaluation with ultrasound . This may be due to incomplete distention. Genitourinary structures: Somewhat prominent Osseous structures: No suspicious lytic or sclerotic lesions are evident. Facet changes are in the lo wer lumbar spine disc bulging is present some endplate spurring may be present with thecal sac compre ssion at L2-3 IMPRESSIONS: 1. Abdominal aortic aneurysm is infrarenal region and extends to the bifurcation with a maximum AP d iameter 5.5 cm. 2. There is prominence of the common iliac arteries with some aneurysmal dilatation of the distal lef t common iliac artery at the bifurcation. #3 there may be some urinary bladder wall thickening. Consi aj evaluation with ultrasound.
== END | disposition home or self-care (01) ==
LOC: RADCTMAIN 08-12 10:01
PROVIDERS: ATTEND Surgery
DX: I71.4 Abdominal aortic aneurysm, without rupture (principal)
CPT/HCPCS: 82565 ×2; 84520 ×2; 74178; 36415; Q9967

== ENCOUNTER → 2022-08-18 | Outpatient (CLI) | payer MEDICARE ==
[2022-08-18 10:52] LABS: Basophils # (A) 0.07 X 10*3/uL (0.00-0.10); Basophils % (A) 0.7 %; Eosinophils # (A) 0.63 X 10*3/uL (0.04-0.35); Eosinophils % (A) 6.4 %; HCT 46.4 % (39.6-50.0); HGB 15.2 g/dL (13.0-17.0); Immature Grans, Automated 0.2 %; Lymphocytes % (A) 15.2 %; MCH 31.3 pg (27.0-32.0); MCHC 32.8 g/dL (32.0-37.0); MCV 95.7 fL (80.0-97.0); Mean Platelet Volume 12.4 fL (9.5-12.2); Monocytes # (A) 0.86 X 10*3/uL (0.20-1.00); Monocytes % (A) 8.7 %; NRBC Per 100 WBC 0 /100 WBCS (0.0-0.0); Neutrophils # (A) 6.81 X 10*3/uL (1.80-7.70); Neutrophils % (A) 68.8 %; Platelet Count 160 X 10*3/uL (140-440); RBC 4.85 X 10*6/uL (4.40-5.60); RDW 13.6 % (11.5-14.5); WBC 9.89 X 10*3/uL (4.50-10.00)
[2022-08-18 11:02] LABS: Erythrocyte Sedimentation Rate 17 mm/Hr (0-20)
[2022-08-18 11:44] LABS: ALT 22 U/L (10-49); AST 19 U/L (14-35); African American GFR (CKD) 57.4 (60.0-200.0); Albumin/Globulin Ratio 1.48 (1.60-3.17); Alkaline Phosphatase 107 U/L (41-126); BUN/Creat Ratio 22.36 Ratio (12.00-20.00); Blood Urea Nitrogen 31.3 mg/dL (9.0-27.0); Carbon Dioxide 23.4 mmol/L (20.0-27.5); Chloride 108 mmol/L (96-109); Chol/HDL Ratio 2.29 Ratio; Globulin 2.7 g/dL (1.6-3.3); Glucose 104 mg/dL (70-110); LDL Cholesterol,Calculated 41.4 mg/dL (0.0-131.0); Magnesium 2.4 mg/dL (1.5-2.4); Non-African American GFR(CKD) 49.5 (60.0-200.0); Sodium 142 mmol/L (135-145); Total Protein 6.7 g/dL (6.2-8.2); VLDL Calculation 10.68 mg/dL (5.00-40.00)
== END | disposition home or self-care (01) ==
LOC: LABWHC1 08:16
PROVIDERS: ATTEND Internal Medicine
DX: Z01.811 Encounter for preprocedural respiratory examination (principal); E78.5 Hyperlipidemia, unspecified; I10 Essential (primary) hypertension; R06.83 Snoring
CPT/HCPCS: 36415; 80053; 80061; 82306; 82607; 83036; 83735; 84439; 84443; 85025; 85652

== ENCOUNTER 2022-09-05 06:05 | Day surgery (SDC) | payer MEDICARE ==
[~2022-09-05 06:05] MED LIST changes: +ALPRAZolam 0.25 MG TAB PO PRN; +ALPRAZolam 0.5 MG TAB PO PRN; +ASPIRIN 325 MG TAB PO STA; +ATORVASTATIN 80 MG TAB PO STA; +HEPARIN SODIUM,PORCINE 10,000 UNIT in SODIUM CHLORIDE 0.9% 1,000 ML IRRIGATION PRN; +HEPARIN SODIUM,PORCINE 2,500 UNIT in SODIUM CHLORIDE 0.9% 250 ML IRRIGATION PRN; -LACTATED RINGERS 1,000 ML IV SCH; +NITROGLYCERIN SL TABS 0.4 MG TAB SUBLINGUAL PRN; +SODIUM CHLORIDE 0.9% 1,000 ML in EMPTY BAG 1 BAG IV ONE
[2022-09-05] MEDS ORDERED: SODIUM CHLORIDE 0.9% 1,000 ML IV ONE (06:16)
[2022-09-05 06:27] VITALS: RESP 16; TEMP 98.9
[2022-09-05] MEDS ORDERED: VERAPAMIL 2.5 MG/ML 2 ML AMP ONE (07:09)
[2022-09-05] MEDS ORDERED: fentaNYL (PF) 50 MCG/ML 2 ML AMP ONE (07:32)
[2022-09-05] MEDS ORDERED: HEPARIN SODIUM 1,000 UN/ML (10ML VL) ONE (07:32)
[2022-09-05] MEDS ORDERED: MIDAZOLAM 2 MG/2 ML VIAL IV ONE (07:42)
[2022-09-05] MEDS ORDERED: LIDOCAINE 1% INJ 10MG/ML (30 ML VIAL-PF) SQ ONE (07:43)
[2022-09-05] MEDS ORDERED: fentaNYL (PF) 50 MCG/ML 2 ML AMP IV ONE (07:43)
[2022-09-05] MEDS ORDERED: VERAPAMIL SYRINGE (5 MG/10 ML) INTRAARTER ONE (07:43)
[2022-09-05] MEDS ORDERED: HEPARIN SODIUM 1,000 UN/ML (10ML VL) IV ONE (07:50)
[2022-09-05] MEDS ORDERED: IOPAMIDOL-370 125ML BTL INJ ONE (08:00)
[2022-09-05] MEDS ORDERED: RX INFO: IV CONTRAST WAS GIVEN 1 EACH MISC MISCELLANE PRN (08:10)
[2022-09-05] MEDS ORDERED: SODIUM CHLORIDE 0.9% 1,000 ML IV SCH (08:15)
--- NOTE | 2022-09-05 08:17 | P.CARDCATH ---
Date of Procedure: 09/05/22 Description of Procedure: Cardiac Catheterization: The patient is a 72-year-old male with a known history of CAD, hypertension and hyperlipidemia who scheduled to undergo abdominal aortic aneurysm repair, he had an abnormal MPI. Recommendations were made regarding cardiac catheterization, the risks and the complications were discussed with the patient who is in full understanding and agreement. Procedure Description: Patient was brought to rags laborer in fasting semi-sedated state after receiving Fentanyl and Benadryl achieiving moderate conscious sedated state. Using Xylocaine Anesthesia and Seldinger technique, a 6-Singaporean sheath was introduced in the left radial artery . Subsequently, selective coronary angiography was performed using a 5-Singaporean 3.5 bend right Hazel and 6-Singaporean 5 bend left Hazel catheter. Multiple views of the coronary artery including hemiaxial views were obtained. The left Hazel catheter was used to cross the aortic valve and LVEDP was calculated. Following that, catheter and sheath were removed. Hemostasis was obtained with deployment of TR band . There was no immediate complication. Patient was returned to room in stable condition. Of note, the patient received a total of 5000 units of intravenous heparin as well as intra-arterial verapamil. Findings: Left main: This is a large size vessel, bifurcating into left circumflex and LAD, left main has no high-grade stenosis LAD: This is a large size vessel, reaching to the apex, giving rise to 2 diagonal branch, the LAD mid segment has 10-20% there is another 50-60% stenosis in the mid distal segment, the second diagonal branch has a stented segment with 50-60% in-stent restenosis with no progression compared to 2020 Left circumflex: This is a nondominant vessel, giving rise to 2 obtuse marginal branch the first one is large in caliber, the left circumflex has mild intimal disease of 10-20% RCA: This is a large dominant vessel bifurcating distally PDA and PLV, the proximal stented segment of the RCA is patent with no in-stent restenosis in the mid RCA has a 40% stenosis there is mild intimal disease in the distal segment Left Ventriculogram: Not performed Hemodynamics: There was no gradient across the aortic valve, LVEDP was 16-18 mmHg Conclusion: 1. Patent stent in the proximal RCA with mild disease in the mid RCA 2. Patent stent in diagonal 2 with moderate in-stent restenosis with no progression since 2020 3. Mild disease in the mid distal segment of the LAD 4. Mild disease in the left circumflex Recommendations: I have recommended to continue medical therapy and proceed with abdominal aortic aneurysm repair. The findings and the recommendations were discussed with the patient and the family and they were in full understanding and agreement. Duration of sedation is 20 minutes.
[2022-09-05] MEDS ORDERED: atenoloL 25 MG TAB PO SCH (09:00)
[2022-09-05] MEDS ORDERED: amLODIPine 10 MG TAB PO SCH (09:00)
[2022-09-05] MEDS ORDERED: ATORVASTATIN 40 MG TAB PO SCH (09:00)
[2022-09-05] MEDS ORDERED: EZETIMIBE 10 MG TAB PO SCH (09:00)
[2022-09-05 12:28] VITALS: BP 145/76; PULSE 56
[2022-09-05] MEDS ORDERED: LOSARTAN 50 MG TAB PO SCH (21:00)
[2022-09-06] MEDS ORDERED: ASPIRIN 81 MG PO SCH (09:00)
== END 2022-09-05 12:33 | disposition home or self-care (01) ==
LOC: CATHCVL 06:05
PROVIDERS: ATTEND Internal Medicine Interventional Cardiology
DX: I25.10 Atherosclerotic heart disease of native coronary artery without angina pectoris (principal); T82.855A Stenosis of coronary artery stent, initial encounter; I10 Essential (primary) hypertension; R94.39 Abnormal result of other cardiovascular function study; E78.00 Pure hypercholesterolemia, unspecified; I73.9 Peripheral vascular disease, unspecified; Z79.82 Long term (current) use of aspirin; Z79.899 Other long term (current) drug therapy; E78.2 Mixed hyperlipidemia; F17.210 Nicotine dependence, cigarettes, uncomplicated; I71.40 Abdominal aortic aneurysm, without rupture, unspecified
CPT/HCPCS: 93458; C1769 ×2; C1894; J2250; J2001; J3010; J1644; Q9967

== ENCOUNTER 2022-10-10 10:24 | Inpatient (IN) | payer MEDICARE ==
[~2022-10-10 10:24] MED LIST changes: -ASPIRIN 325 MG TAB PO STA; -ATORVASTATIN 80 MG TAB PO STA; +DEXAMETHASONE SOD PHOSPHATE 4 MG/ML 1 ML VIAL IV ONE; -HEPARIN SODIUM,PORCINE 10,000 UNIT in SODIUM CHLORIDE 0.9% 1,000 ML IRRIGATION PRN; -HEPARIN SODIUM,PORCINE 2,500 UNIT in SODIUM CHLORIDE 0.9% 250 ML IRRIGATION PRN; +HYDROmorphone 0.5 MG/0.5 ML SYRINGE IVP PRN; -NITROGLYCERIN SL TABS 0.4 MG TAB SUBLINGUAL PRN; +ONDANSETRON 4 MG/2 ML VIAL IVP ONE; +ZOLPIDEM 5 MG TAB PO PRN; +ceFAZolin 1 GM in SODIUM CHLORIDE 0.9% 250 ML IRRIGATION PRN
[2022-10-10] MEDS ORDERED: SODIUM CHLORIDE 0.9% 1,000 ML IV ONE (10:44)
[2022-10-10 11:19] LABS: Basophils # (A) 0.1 k/uL (0-0.2); Basophils % (A) 1 %; Eosinophils # (A) 0.3 k/uL (0-0.7); Eosinophils % (A) 3 %; HCT 47.4 % (39.0-53.0); HGB 15.8 gm/dL (13.0-17.5); Lymphocytes # (A) 1.2 k/uL (1.0-4.8); Lymphocytes % (A) 12 %; MCH 32.4 pg (25.0-35.0); MCHC 33.4 g/dL (31.0-37.0); MCV 97.1 fL (80.0-100.0); Mean Platelet Volume 8.5; Monocytes # (A) 0.8 k/uL (0-1.0); Monocytes % (A) 8 %; Neutrophils # (A) 7.4 k/uL (1.3-7.7); Neutrophils % (A) 74 %; Platelet Count 161 k/uL (150-450); RBC 4.88 m/uL (4.30-5.90); RDW 13.2 % (11.5-15.5)
[2022-10-10 11:30] LABS: Calcium 8.7 mg/dL (8.4-10.2); Potassium 4.6 mmol/L (3.5-5.1)
[2022-10-10] MEDS ORDERED: HEPARIN SODIUM,PORCINE 10,000 UNIT/ML 1 ML VIAL ONE (12:15)
[2022-10-10] MEDS ORDERED: NEOSTIGMINE 1 MG/ML 10 ML VIAL ONE (12:15)
[2022-10-10] MEDS ORDERED: MIDAZOLAM 2 MG/2 ML VIAL ONE (12:15)
[2022-10-10] MEDS ORDERED: SUCCINYLCHOLINE CHLORIDE 200 MG/10 ML VIAL IV ONE (12:15)
[2022-10-10] MEDS ORDERED: PROTAMINE SULFATE 10 MG/ML 5 ML VIAL IV ONE (12:15)
[2022-10-10] MEDS ORDERED: PHENYLEPHRINE-0.9% NACL SYG 1,000 MCG/10 ML SYRINGE ONE (12:15)
[2022-10-10] MEDS ORDERED: PROPOFOL 10 MG/ML 20 ML VIAL IV ONE (12:15)
[2022-10-10] MEDS ORDERED: GLYCOPYRROLATE 0.2 MG/ML 2 ML VIAL ONE (12:15)
[2022-10-10] MEDS ORDERED: fentaNYL (PF) 50 MCG/ML 2 ML AMP ONE (12:15)
[2022-10-10] MEDS ORDERED: LABETALOL 5 MG/ML VIAL MDV ONE (12:15)
[2022-10-10] MEDS ORDERED: ONDANSETRON 4 MG/2 ML VIAL ONE (12:15)
[2022-10-10] MEDS ORDERED: ROCURONIUM 10 MG/ML (5 ML VIAL) IV ONE (12:15)
[2022-10-10] MEDS ORDERED: ePHEDrine 50 MG/ML 1 ML VIAL ONE (12:15)
[2022-10-10] MEDS ORDERED: LIDOCAINE 2% INJ 20 MG/ML (2 ML VIAL) ONE (12:15)
--- NOTE | 2022-10-10 13:12 | P.ANPRN ---
Procedure Note - Anesthesia - Invasive Line Right Arterial Line Time Out Performed: Yes Date of Procedure: 10/10/22 Time of Procedure: 11:10 Location of Patient: PreOp Preparation: Sterile Prep, Sterile Dressing Arterial Line Location: Radial Ultrasound Used: Yes Purpose - Visualization and Identification of Vasculature: Yes Needle Guage: 20 Image Stored and Saved: Yes Narrative: Right radial arterial line placed using Seldinger technique under u/s guidance.
[2022-10-10] MEDS ORDERED: IOPAMIDOL-250 100ML BTL INTRAARTER ONE (15:00)
[2022-10-10] MEDS ORDERED: NALOXONE 0.4 MG/ML 10 ML VIAL IVP PRN (15:29)
--- NOTE | 2022-10-10 15:35 | P.OP ---
Description of Procedure: Date: 10/10/2022 Preoperative diagnosis: Asymptomatic Infrarenal 5.8 cm AAA, 3 cm iliac artery aneurysms Postoperative diagnosis: Same Procedure: 1. Percutaneous Endovascular aortic repair with Dameron bilateral JUDITH graft 2. Ultrasound-guided bilateral common femoral artery access 3. Bilateral iliac artery selective angiograms 4. Percutaneous femoral closure with Perclose Surgeon: Peter Tyler DO Anesthesia: General Estimated blood loss: 50 mL Complications: None Condition: Stable Disposition: Palpable DP and PT pulses Contrast: 85 mL Flouro time: 45 minutes Indications: 72-year-old gentleman with history of AAA and bilateral iliac artery aneurysms extending to the internal iliac artery takeoff presents to the hospital for endovascular aortic repair with bilateral IV grasp due to the close proximity and size of the iliac arteries. Operative narrative: After written and informed consent was obtained from the patient all risks benefits and complications were described the patient was brought to the Director Sales Training and laid in a supine position. The area of the groins were prepped and draped in usual sterile fashion after appropriate anesthetic was performed per the anesthesiologist. A timeout was performed in normal fashion and antibiotics were administered prior to incisions. Utilizing ultrasound bilateral common femoral arteries were visualized demonstrating patency with minimal calcification. Under ultrasound guidance utilizing a multipurpose needle bilateral common femoral arteries were accessed and guidewire was placed followed by deployment of 2 Perclose closure devices for each femoral artery. Utilizing Seldinger technique and 8-Egyptian sheath was then placed and patient was administered heparin and followed with ACTs. 035 Glidewire was then placed up the right femoral sheath and exchanged for a Lunderquist wire through an angled glide catheter. The left femoral artery was then utilized and guidewire was placed followed by a Lunderquist wire. Two 16F Dameron sheaths were then placed into the distal aorta. A .035 glidewire advantage was then placed up the left femoral sheath and a snare catheter up the right and the wire was snared and brought externally through the and left femoral sheath. A [id number] JUDITH main graft was then placed up the left femoral sheath. Retrograde angiogram was obtained demonstrating the takeoff of the internal iliac artery. The main JUDITH graft was deployed just superior to the bifurcation in normal fashion. Utilizing the body floss wire the right femoral 16F sheath was placed into the left iliac graft and an 035 glidewire was placed into the internal iliac artery. A comfy catheter was then placed into the internal iliac artery and selective angiogram was performed demonstrating good intraluminal access. A craven wire was then placed and a hypo limb graft 12 mmx7cm was then placed into the internal iliac artery. The overlap was then ballooned with a 14 x 40 mm balloon. The external iliac graft was then deployed fully and selective angiogram was obtained demonstrating good flow without evidence of leak. Attention was then placed to the right iliac arteries and same steps were performed and a [id number] JUDITH graft was placed followed by a hypo limb 14.5 mmx 7cm into the internal iliac artery. Once completed attention was then placed to the AAA and the Lunderquist wires were placed into the descending thoracic aorta and 16F sheath on the left was placed at the renal bifurcation. A pigtail was placed up the left and aortogram was obtained. A main body 28.5 [id number] Dameron graft was then deployed just beneath the renal bifurcation. Once completed two bridge graft pieces 27 mmx 14 cm on the right and a 27 mmx 12 cm on the left were then placed in usual fashion. A molding balloon was then used to balloon the overlaps. Once completed a final angiogram was obtained which demonstrated no evidence of a type I or type III endoleak. There was a small late type II endoleak noted. All guidewires and catheters were then removed and the Perclose closure devices were closed in normal fashion. Left common femoral required a 8mm Angio-Seal. The areas were then cleansed and dressings were placed. The patient tolerated procedure well and had palpable DP and PT pulses bilaterally and was sent to PACU for recovery.
--- NOTE | 2022-10-10 15:36 | IR ---
EXAMINATION TYPE: IR captain room service aorta DATE OF EXAM: 10/10/2022 COMPARISON: NONE HISTORY: Fluoroscopy time. Fluoroscopy was provided to the referring clinician.
[2022-10-10] MEDS: LACTATED RINGERS 1,000 ML IV SCH (17:51)
[2022-10-10] MEDS: SODIUM CHLORIDE 0.9% 1,000 ML in EMPTY BAG 1 BAG IV SCH ×9 (17:53→20:25)
[2022-10-10 18:41] LABS: Basophils # (A) 0.1 k/uL (0-0.2); Basophils % (A) 0 %; Eosinophils # (A) 0.3 k/uL (0-0.7); Eosinophils % (A) 3 %; HCT 45.1 % (39.0-53.0); HGB 14.6 gm/dL (13.0-17.5); Lymphocytes # (A) 1.4 k/uL (1.0-4.8); Lymphocytes % (A) 12 %; MCH 31.8 pg (25.0-35.0); MCHC 32.3 g/dL (31.0-37.0); MCV 98.4 fL (80.0-100.0); Mean Platelet Volume 9.7; Monocytes # (A) 0.7 k/uL (0-1.0); Monocytes % (A) 6 %; Neutrophils # (A) 8.8 k/uL (1.3-7.7); Neutrophils % (A) 76 %; Platelet Count 121 k/uL (150-450); RBC 4.58 m/uL (4.30-5.90); RDW 13.4 % (11.5-15.5); WBC 11.6 k/uL (3.8-10.6)
[2022-10-10 18:58] LABS: Calcium 8.1 mg/dL (8.4-10.2); Potassium 4.3 mmol/L (3.5-5.1)
[2022-10-10] MEDS: HYDROcodone/APAP 5-325MG 1 EACH TAB PO PRN ×2 (18:58→23:16)
[2022-10-10] MEDS: VIT A,C & E-LUTEIN-MINERALS 1 EACH TAB PO SCH (19:47)
[2022-10-10] MEDS ORDERED: atenoloL 25 MG TAB PO SCH (21:00)
[2022-10-11] MEDS: LACTATED RINGERS 1,000 ML IV SCH (01:30)
[2022-10-11 03:56] VITALS: TEMP 98.9
[2022-10-11] MEDS: HYDROcodone/APAP 5-325MG 1 EACH TAB PO PRN (05:42)
[2022-10-11 07:58] VITALS: BP 155/88; PULSE 86; RESP 16
[2022-10-11] MEDS: VIT A,C & E-LUTEIN-MINERALS 1 EACH TAB PO SCH (07:59)
--- NOTE | 2022-10-11 08:31 | P.DS ---
Providers Date of admission: 10/10/22 10:24 Expected date of discharge: 10/11/22 Attending physician: Peter Tyler DO Consults: 10/10/22 05:56 Consult to Anesthesia Routine Consulting Provider: Anesthesia,Services Consult Reason/Comments: General anesthesia for Aortic Stent procedure 10/10/22 15:43 Consult Physician Routine Consulting Provider: Doris Garcia Consult Reason/Comments: medical management Do you want consulting provider notified?: Yes Primary care physician: Stated None Hospital Course: This is a pleasant 72-year-old gentleman with a history of abdominal aortic aneurysm and bilateral iliac artery aneurysms stenting into the internal iliac artery takeoff that presented to the hospital yesterday for endovascular aortic repair with bilateral IV grasp due to close proximity and size of iliac arteries. He is postop day #1 for percutaneous endovascular aortic repair with Tracy bilateral JUDITH graft, bilateral iliac artery selective angiograms and percutaneous femoral closure with Perclose. Patient states pain has been well- managed, he had no acute changes through the night. Vital signs has been stable. He's been afebrile. No bleeding from access sites. He's been up and ambulating this morning, Elizabeth catheter has been discontinued and he has voided. Exam General appearance: The patient is alert, oriented, appears in no acute distress. HET: Head is normocephalic and atraumatic. Pupils are equal and reactive. Neck: Supple without lymphadenopathy. Trachea midline. Heart: Regular. Lungs: Equal expansion, normal respiratory effort. Abdomen: Soft, nontender, nondistended. Extremities: Normal skin color and turgor. Bilateral groin access sites without any hematoma, bleeding, ecchymosis. Good capillary refill bilateral lower ext remities. Neurological: No focal deficits. Strength and sensation are grossly intact. The impression and plan of care has been dictated as directed. I performed a history and examination of this patient, discussed the same with the dictator. I agree with the dictator's note ,documented as a scribe. Any additional findings or plans will be noted. Procedures: Procedure: 1. Percutaneous Endovascular aortic repair with Tracy bilateral JUDITH graft 2. Ultrasound-guided bilateral common femoral artery access 3. Bilateral iliac artery selective angiograms 4. Percutaneous femoral closure with Perclose Patient Condition at Discharge: Stable Plan - Discharge Summary Discharge Rx Participant: No New Discharge Prescriptions: New traMADol HCL 50 mg PO Q6H 3 Days #12 tab Clopidogrel [Plavix] 75 mg PO DAILY 30 Days #30 tab Continue Vit C/E/Zn/Coppr/Lutein/Zeaxan [Preservision Areds 2 Softgel] 1 cap PO BID tadalafiL [Cialis] 5 mg PO DAILY atenoloL 25 mg PO HS amLODIPine [Norvasc] 10 mg PO DAILY Ezetimibe [Zetia] 10 mg PO DAILY Losartan Potassium 50 mg PO DAILY Atorvastatin [Lipitor] 20 mg PO DAILY Unk Vitamin D Gummie 1 tab PO Q48H Unk Steroid Eye Drops 4 drops LEFT EYE DAILY Aspirin EC [Ecotrin Low Dose] 81 mg PO DAILY Discharge Medication List Ezetimibe [Zetia] 10 mg PO DAILY 07/24/19 [History] Vit C/E/Zn/Coppr/Lutein/Zeaxan [Preservision Areds 2 Softgel] 1 cap PO BID 07/24/19 [History] amLODIPine [Norvasc] 10 mg PO DAILY 07/24/19 [History] atenoloL 25 mg PO HS 07/24/19 [History] tadalafiL [Cialis] 5 mg PO DAILY 07/24/19 [History] Losartan Potassium 50 mg PO DAILY 11/04/20 [History] Aspirin EC [Ecotrin Low Dose] 81 mg PO DAILY 06/28/22 [History] Atorvastatin [Lipitor] 20 mg PO DAILY 06/28/22 [History] Unk Steroid Eye Drops 4 drops LEFT EYE DAILY 10/06/22 [History] Unk Vitamin D Gummie 1 tab PO Q48H 10/06/22 [History] Clopidogrel [Plavix] 75 mg PO DAILY 30 Days #30 tab 10/11/22 [Rx] traMADol HCL 50 mg PO Q6H 3 Days #12 tab 10/11/22 [Rx] Follow up Appointment(s)/Referral(s): Peter Tyler DO [STAFF PHYSICIAN] - 1 Week Patient Instructions/Handouts: Endovascular Aneurysm Repair of Abdominal Aorta (DC) Activity/Diet/Wound Care/Special Instructions: No strenuous activity or heavy lifting greater than 5-10 pounds until cleared by vascular surgeon May shower starting tomorrow. No soaking or tub baths. Monitor access sites for bleeding, hematoma, drainage. If having bleeding, apply pressure call vascular office or go to the emergency room. Monitor for infection, temperature greater than 100.4. Do not drive for 24-48 hours Discharge Disposition: HOME SELF-CARE
[2022-10-11] MEDS ORDERED: LOSARTAN 50 MG TAB PO SCH (09:00)
[2022-10-11] MEDS ORDERED: CLOPIDOGREL 75 MG TAB PO SCH (09:00)
[2022-10-11] MEDS ORDERED: amLODIPine 10 MG TAB PO SCH (09:00)
[2022-10-11] MEDS ORDERED: ATORVASTATIN 20 MG TAB PO SCH (09:00)
[2022-10-11] MEDS ORDERED: ASPIRIN 81 MG PO SCH ×2 (09:00)
[2022-10-11] MEDS ORDERED: EZETIMIBE 10 MG TAB PO SCH (09:00)
--- NOTE | 2022-10-11 10:02 | P.CONS ---
History of Present Illness - Reason for Consult Consult date: 10/11/22 Medical management postop endovascular aortic repair - History of Present Illness This is a 72-year-old male who was recently admitted under vascular surgery services with history of AAA and bilateral iliac artery aneurysms extending to the internal iliac artery and was brought here for endovascular aortic repair with bilateral JUDITH graft along with bilateral iliac artery selective angiograms is being closely monitored. Patient does not currently have a primary care provider and follows with vascular surgery in the outpatient setting. Patient has a past medical history of coronary artery disease, COPD, CVA with TIA, hyperlipidemia, hypertension, myocardial infarction, osteoarthritis, previous heart stents. Patient reports to smoking tobacco rarely uses alcohol and denies any other illicit drug use. Patient postoperatively doing well anticipating going home and has been cleared for discharge by vascular surgery. She has continued on statin along with aspirin and Plavix and will have a follow-up appointment in the next week with Dr. Tyler. Patient denies chest pain or shortness of breath and is afebrile. Review Of Systems: Constitutional: No fever, no chills, no night sweats. No weight change. No weakness, fatigue or lethargy. No daytime sleepiness. EENT: No headache. No blurred vision or double vision, no loss of vision. No loss of Hearing, no ringing in the ears, no dizziness. No nasal drainage or congestion. No epistaxis. No sore throat. Lungs: No shortness of breath, cough, no sputum production. No wheezing. Cardiovascular: No chest pain, no lower extremity edema. No palpitations. No paroxysmal nocturnal dyspnea. No orthopnea. No lightheadedness or dizziness. No syncopal episodes. Abdominal: No abdominal pain. No nausea, vomiting. No diarrhea. No constipation. No bloody or tarry stools.. No loss of appetite. Genitourinary: No dysuria, increased frequency, urgency. No urinary retention. Musculoskeletal: No myalgias. No muscle weakness, no gait dysfunction, no frequent falls. No back pain. No neck pain. Integumentary: No wounds, no lesions. No rash or pruritus. No unusual bruising. No change in hair or nails. Neurologic: No aphasia. No facial droop. No change in mentation. No head injury. No headache. No paralysis. No paresthesia. Psychiatric: No depression. No anxiety. No mood swings. Endocrine: No abnormal blood sugars. No weight change. No excessive sweating or thirst. No cold intolerance. PHYSICAL EXAMINATION: GENERAL: The patient is alert and oriented x4, Well developed, well nourished. HEENT: Pupils are round and equally reacting to light. EOMI. no scleral icterus. No conjunctival pallor. Normocephalic, atraumatic. No pharyngeal erythema. No thyromegaly. CARDIOVASCULAR: S1 and S2 muffled PULMONARY: diminished breath sounds bilaterally with no wheezing or rhonchi noted. ABDOMEN: soft. Nontender on exam. non-distended, normoactive bowel sounds. No palpable organomegaly. MUSCULOSKELETAL: No joint swelling or deformity. EXTREMITIES: No cyanosis, clubbing, or pedal edema. NEUROLOGICAL: Gross neurological examination did not reveal any focal deficits. SKIN: No rashes. Assessment: Postop percutaneous endovascular aortic repair History of abdominal aortic aneurysm with bilateral iliac artery aneurysms History of coronary artery disease with stenting COPD history not an exacerbation History of CVA/TIA Hyperlipidemia Hypertension myocardial infarction history Continued ongoing nicotine dependence GI prophylaxis DVT prophylaxis Full code Plan: Recommend to continue with current medications and management per vascular surgery services. Patient was seen and evaluated by vascular surgery today no a cute overnight issues noted. Patient has been cleared for discharge and will be discharged today with close outpatient follow-up. Strongly recommend aspirin/statins last Plavix and continue this regimen. Encouraged tobacco cessation as patient continues to smoke. Patient currently does not have a primary care provider and encourage the patient will establish with one as soon as possible. Encouraged medication compliance and follow-up compliance. We will continue to follow with vascular surgery during hospitalization. Thank you for this consultation. Patient is scheduled to be discharged this morning. The impression and plan of care has been dictated by Nya Guevara, nurse practitioner as directed. Dr. Radha GROVES I have performed a history and examination and MDM of this patient, discussed the same with the dictator, and agree with the dictator's assessment and plan as written ,documented as a scribe. Based on total visit time, I have performed more than 50% of the visit. Any additional findings or plans will be noted. Past Medical History Past Medical History: Coronary Artery Disease (CAD), COPD, CVA/TIA, Hyperlipidemia, Hypertension, Myocardial Infarction (NM), Osteoarthritis (OA), Prostate Disorder Additional Past Medical History / Comment(s): CAD, Heart cath with stents in 2007, POSS TIA PER PATIENT , as child had a punctured lung tx with chest tube tinnitus Last Myocardial Infarction Date:: 2006 History of Any Multi-Drug Resistant Organisms: None Reported Past Surgical History: Heart Catheterization With Stent Additional Past Surgical History / Comment(s): HEART CATH WITH X2 , colonoscopy, cataract surg L eye didnt take well. 2 prostate procedures Past Anesthesia/Blood Transfusion Reactions: Motion Sickness Additional Past Anesthesia/Blood Transfusion Reaction / Comm: sea sickness. no blood transfusions Date of Last Stent Placement:: 09/2020 Smoking Status: Current every day smoker - Past Family History Father History Unknown: Yes Family Medical History: Cancer Additional Family Medical History / Comment(s): LUNG CANCER Mother History Unknown: Yes Family Medical History: Coronary Artery Disease (CAD) Medications and Allergies Home Medications Medication Instructions Recorded Confirmed Type Ezetimibe [Zetia] 10 mg PO DAILY 07/24/19 10/10/22 History Vit C/E/Zn/Coppr/Lutein/Zeaxan 1 cap PO BID 07/24/19 10/10/22 History [Preservision Areds 2 Softgel] amLODIPine [Norvasc] 10 mg PO DAILY 07/24/19 10/10/22 History atenoloL 25 mg PO HS 07/24/19 10/10/22 History tadalafiL [Cialis] 5 mg PO DAILY 07/24/19 10/10/22 History Losartan Potassium 50 mg PO DAILY 11/04/20 10/10/22 History Aspirin EC [Ecotrin Low Dose] 81 mg PO DAILY 06/28/22 10/10/22 History Atorvastatin [Lipitor] 20 mg PO DAILY 06/28/22 10/10/22 History Unk Steroid Eye Drops 4 drops LEFT EYE DAILY 10/06/22 10/10/22 History Unk Vitamin D Gummie 1 tab PO Q48H 10/06/22 10/10/22 History Clopidogrel [Plavix] 75 mg PO DAILY 30 Days #30 tab 10/11/22 Rx traMADol HCL 50 mg PO Q6H 3 Days #12 tab 10/11/22 Rx Allergies Allergy/AdvReac Type Severity Reaction Status Date / Time No Known Allergies Allergy Verified 10/10/22 10:54 Physical Exam Vitals: Vital Signs Temp Pulse Pulse Resp BP Pulse Ox 10/11/22 07:57 86 16 155/88 95 10/11/22 03:55 98.9 F 77 18 137/66 97 10/11/22 01:25 85 18 10/11/22 00:00 98.1 F 85 18 153/84 95 10/10/22 20:00 98.4 F 67 18 172/86 94 L 10/10/22 17:55 97.8 F 51 L 16 165/79 99 10/10/22 17:16 58 L 16 162/81 97 10/10/22 17:02 61 16 166/73 97 10/10/22 16:47 56 L 16 160/90 97 10/10/22 16:30 56 L 16 170/71 97 10/10/22 16:15 55 L 16 164/71 97 10/10/22 16:00 97 F L 64 16 157/74 97 10/10/22 15:45 54 L 16 151/79 97 10/10/22 15:30 53 L 16 143/72 97 10/10/22 15:14 97 F L 58 L 16 151/64 97 10/10/22 11:12 97.8 F 92 16 143/81 97 Intake and Output 10/10/22 10/11/22 10/11/22 22:59 06:59 14:59 Intake Total 10 240 Output Total 1200 Balance -1200 10 240 Intake: IV 10 0.9 10 Oral 240 Output: Urine 1200 Other: Voiding Method Toilet Toilet Urinal Urinal # Voids 1 Results CBC & Chem 7: 10/10/22 18:02 10/11/22 07:05 Labs: Abnormal Lab Results - Last 24 Hours (Table) 10/10/22 10/10/22 10/10/22 Range/Units 10:53 18:02 18:02 WBC 11.6 H (3.8-10.6) k/uL Plt Count 121 L (150-450) k/uL Neutrophils # 8.8 H (1.3-7.7) k/uL Chloride 111 H 112 H (98-107) mmol/L Carbon Dioxide 21 L (22-30) mmol/L BUN 27 H 23 H (9-20) mg/dL Creatinine 1.45 H (0.66-1.25) mg/dL Glucose 103 H (74-99) mg/dL Calcium 8.1 L (8.4-10.2) mg/dL 10/11/22 Range/Units 07:05 WBC (3.8-10.6) k/uL Plt Count (150-450) k/uL Neutrophils # (1.3-7.7) k/uL Chloride (98-107) mmol/L Carbon Dioxide (22-30) mmol/L BUN (9-20) mg/dL Creatinine 1.29 H (0.66-1.25) mg/dL Glucose (74-99) mg/dL Calcium (8.4-10.2) mg/dL Assessment and Plan Time with Patient: Less than 30
== END 2022-10-11 09:28 | disposition home or self-care (01) | DRG 269 ==
LOC: 2ORMAIN 10:24 → 3SCARD 16:26
PROVIDERS: ADMIT Surgery; ATTEND Surgery
PROC: 04VF3DZ Restriction of Left Internal Iliac Artery with Intraluminal Device, Percutaneous Approach (ICD-10-PCS; principal; 2022-10-10 12:00)
PROC: 04VE3DZ Restriction of Right Internal Iliac Artery with Intraluminal Device, Percutaneous Approach (ICD-10-PCS; principal; 2022-10-10 12:00)
PROC: 04V03DZ Restriction of Abdominal Aorta with Intraluminal Device, Percutaneous Approach (ICD-10-PCS; principal; 2022-10-10 12:00)
DX: I71.43 Infrarenal abdominal aortic aneurysm, without rupture (principal); I72.3 Aneurysm of iliac artery; J44.9 Chronic obstructive pulmonary disease, unspecified; I10 Essential (primary) hypertension; I25.10 Atherosclerotic heart disease of native coronary artery without angina pectoris; E78.2 Mixed hyperlipidemia; E78.00 Pure hypercholesterolemia, unspecified; I25.2 Old myocardial infarction; N40.0 Benign prostatic hyperplasia without lower urinary tract symptoms; N52.9 Male erectile dysfunction, unspecified; M19.90 Unspecified osteoarthritis, unspecified site; H93.19 Tinnitus, unspecified ear; F17.210 Nicotine dependence, cigarettes, uncomplicated; Z71.6 Tobacco abuse counseling; Z79.82 Long term (current) use of aspirin; Z79.899 Other long term (current) drug therapy; Z95.5 Presence of coronary angioplasty implant and graft; Z86.73 Personal history of transient ischemic attack (TIA), and cerebral infarction without residual deficits; Z82.49 Family history of ischemic heart disease and other diseases of the circulatory system
CPT/HCPCS: 34705; 80048; 82565; 85025; 86850; 86900; 86901

== ENCOUNTER → 2022-10-13 | Outpatient (CLI) | payer MEDICARE ==
[2022-10-13 18:31] LABS: African American GFR (CKD) 44.4 (60.0-200.0); Albumin 3.9 g/dL (3.8-4.9); Albumin/Globulin Ratio 1.68 (1.60-3.17); Anion Gap 16.2 mmol/L (10.00-18.00); BUN/Creat Ratio 15.72 Ratio (12.00-20.00); Blood Urea Nitrogen 27.2 mg/dL (9.0-27.0); Calcium 8.9 mg/dL (8.7-10.3); Carbon Dioxide 24.5 mmol/L (20.0-27.5); Globulin 2.3 g/dL (1.6-3.3); Non-African American GFR(CKD) 38.3 (60.0-200.0); Potassium 4.7 mmol/L (3.5-5.5); Total Bilirubin 0.5 mg/dL (0.30-1.20); Total Protein 6.2 g/dL (6.2-8.2)
[2022-10-13 20:09] LABS: HCT 46.5 % (39.6-50.0); HGB 14.9 g/dL (13.0-17.0); MCV 96.7 fL (80.0-97.0); Mean Platelet Volume 11.8 fL (9.5-12.2); NRBC Per 100 WBC 0 /100 WBCS (0.0-0.0); Platelet Count 158 X 10*3/uL (140-440); RBC 4.81 X 10*6/uL (4.40-5.60); RDW 13.5 % (11.5-14.5); WBC 15.92 X 10*3/uL (4.50-10.00)
[2022-10-13 21:25] LABS: Basophils # (A) 0.05 X 10*3/uL (0.00-0.10); Basophils % (A) 0.3 %; Crenated RBC 2+; Eosinophils # (A) 0.08 X 10*3/uL (0.04-0.35); Eosinophils % (A) 0.5 %; Immature Grans, Automated 0.6 %; Lymphocytes # (A) 1.35 X 10*3/uL (0.90-5.00); Lymphocytes % (A) 8.5 %; Monocytes % (A) 11.3 %; Neutrophils # (A) 12.54 X 10*3/uL (1.80-7.70); Neutrophils % (A) 78.8 %
[2022-10-13 23:35] LABS: Appearance,Urine Clear (Clear); Bilirubin,Urine Negative (Negative); Blood,Urine Negative (Negative); Color,Urine Yellow (Yellow); Ketones,Urine Negative (Negative); Nitrite,Urine Negative (Negative); PH, Urine 5.5 (5.0-8.0); Specific Gravity,Urine 1.019 (1.001-1.030); Urobilinogen,Urine 0.2 (0.2,1.0)
[2022-10-14 00:07] LABS: Bacteria,Urine None Seen /HPF (None Seen)
== END | disposition home or self-care (01) ==
LOC: LABWHC1 12:06
PROVIDERS: ATTEND Internal Medicine Critical Care Medicine
DX: R50.9 Fever, unspecified (principal)
CPT/HCPCS: 36415; 80053; 81001; 82150; 83690; 85025; 85379

== ENCOUNTER → 2022-11-14 | Outpatient (CLI) | payer MEDICARE ==
--- NOTE | 2022-11-14 17:11 | CT ---
"EXAMINATION TYPE: CT angio abdomen pelvis DATE OF EXAM: 11/14/2022 COMPARISON: HISTORY: Follow up for abdominal aortic aneurysm. CT DLP: 2219.7 mGycm Automated exposure control for dose reduction was used. Contrast: None Technique: Axial images 5 mm thick sections. Reconstructed images in the coronal and sagittal plane. Three-D reconstructed images performed through the abdominal aorta and pelvis. FINDINGS: Aorta: Impression prior aneurysm repair. Stent is present. No extravasation of contrast is evident. V sapna faint contrast may be present posterior to the left iliac limb within the abdominal aortic aneury sm. Series 8 image 101. Very minimal endovascular leak should be considered. Celiac axis and superior mesenteric artery takeoff are normal. The renal artery takeoffs are normal. Internal and external iliac limb stents are patent. Limited CT sections are obtained from lung bases are clear. CT ABDOMEN: Liver and spleen have normal density. Couple of small cysts may be a inferior right lobe liver. Pancreas appears normal. Gallbladder is unremarkable. Inferior vena cava is normal. There is t ortuosity and aneurysmal dilatation of the [place] abdominal aorta which is patent treated with stent placement.. There is mild diffuse thickening of the adrenal glands. Kidneys appear normal without mas ses cysts or hydronephrosis. CT PELVIS: The bowel in the abdomen and pelvis are unremarkable. Few diverticuli within the sigmoid c olon. Urinary bladder is unremarkable. Prostate is prominent. No suspicious lytic or sclerotic lesion s are evident within the osseous structures. There is probable bone island within the medial right il iac wing. Degenerative disc changes and facet changes are within the lumbar spine. There is scoliosis in the upper lumbar spine lower thoracic spine. IMPRESSION: 1. TINY ENDOVASCULAR LEAK POSTERIOR TO THE LEFT ILIAC STENT. NO ENLARGEMENT OF THE STENTED AORTIC SIZ E IS EVIDENT. A Yellow level critical message alert has been initiated for Peter Tyler DO via the [employer] | Critical Results System on 11/14/2022 5:08 PM. This message alert has been sent to Peter del valle DO via the preferences provided by the clinician for the receipt of Radiology Critical Findings. Message ID [id number]."
== END | disposition home or self-care (01) ==
LOC: RADCTMAIN 10:00
PROVIDERS: ATTEND Surgery
DX: I71.40 Abdominal aortic aneurysm, without rupture, unspecified (principal); T82.330A Leakage of aortic (bifurcation) graft (replacement), initial encounter
CPT/HCPCS: 82565; 84520; 36415; 74174; Q9967

== ENCOUNTER → 2023-03-16 | Outpatient (CLI) | payer MEDICARE ==
[2023-03-16 16:23] LABS: ALT 26 U/L (10-49); AST 18 U/L (14-35); African American GFR (CKD) 48.8 (60.0-200.0); Albumin 4.1 g/dL (3.8-4.9); Albumin/Globulin Ratio 1.71 (1.60-3.17); Alkaline Phosphatase 109 U/L (41-126); BUN/Creat Ratio 18.63 Ratio (12.00-20.00); Blood Urea Nitrogen 29.8 mg/dL (9.0-27.0); Calcium 9.3 mg/dL (8.7-10.3); Carbon Dioxide 25.6 mmol/L (20.0-27.5); Chloride 111 mmol/L (96-109); Chol/HDL Ratio 4.35 Ratio; Globulin 2.4 g/dL (1.6-3.3); Glucose 101 mg/dL (70-110); LDL Cholesterol,Calculated 114.7 mg/dL (0.0-131.0); Non-African American GFR(CKD) 42.1 (60.0-200.0); Potassium 5.6 mmol/L (3.5-5.5); Sodium 147 mmol/L (135-145); Total Protein 6.5 g/dL (6.2-8.2)
== END | disposition home or self-care (01) ==
LOC: LABWHC1 07:19
PROVIDERS: ATTEND Internal Medicine Interventional Cardiology
DX: I10 Essential (primary) hypertension (principal); E78.2 Mixed hyperlipidemia
CPT/HCPCS: 36415; 80053; 80061

== ENCOUNTER → 2023-06-07 | Outpatient (CLI) | payer MEDICARE ==
--- NOTE | 2023-06-07 22:29 | CTL ---
EXAMINATION TYPE: CT Low Dose Lung DATE OF EXAM ORDERED: 06/07/2023 HISTORY: Tobacco use. Lung cancer screening CT DLP: 100.[address] CTDI: 2.6 mGy Automated exposure control for dose reduction was used. SCREENING VISIT: Subsequent COMPARISON: 02/22/2022 TECHNIQUE: Low dose computed tomography scan was performed through the chest at 1 mm thick sections a nd reconstructed images in the coronal plane at [address] DIAGNOSTIC QUALITY: Satisfactory FINDINGS: LUNG NODULES: None. 1. There is a 0.5 cm nodule within the left lateral lung base. Series 4 image 248. LUNGS: COPD: Severity: None Fibrosis: Severity: None Lymph nodes: None Other findings: None RIGHT PLEURAL SPACE: Effusion: None Calcification: None Thickening: None Pneumothorax: None LEFT PLEURAL SPACE: Effusion: None Calcification: None Thickening: None Pneumothorax: None HEART: Heart Size: Normal Coronary calcification: Mild Pericardial effusion: None OTHER FINDINGS: Upper abdomen: Normal Bony thorax: Normal Supraclavicular region: Normal Other: Ascending thoracic aorta at the level the main pulmonary artery measures 4.3 cm. The main pul monary artery at the bifurcation measures 3.7 cm. IMPRESSION: 1. Small nodule left lateral lung base. Follow-up in 6 months is recommended. FOLLOW UP CT CHEST RECOMMENDATION: Lobe CT chest [address] LUNG RAD: Lung-Rad 3 Probably Benign
== END | disposition home or self-care (01) ==
LOC: RADCTMAIN 12:11
PROVIDERS: ATTEND Internal Medicine Critical Care Medicine
DX: Z12.2 Encounter for screening for malignant neoplasm of respiratory organs (principal); F17.210 Nicotine dependence, cigarettes, uncomplicated; R91.1 Solitary pulmonary nodule
CPT/HCPCS: 71271

== ENCOUNTER → 2023-09-13 | Outpatient (CLI) | payer MEDICARE ==
--- NOTE | 2023-09-13 16:16 | MR ---
EXAMINATION TYPE: MR brain wo/w con DATE OF EXAM: 09/13/2023 COMPARISON: CT brain 07/03/2020 HISTORY: Loss of taste and smell, blurry vision for 15 months, headaches TECHNIQUE: Multiplanar, multisequence images of the brain and brainstem is performed without and with IV contras t, utilizing 10 mL intravenous Gadavist . FINDINGS: Diffusion weighted images demonstrate no evidence of a recent infarct or other diffusion ab normality. There is no extra-axial fluid collection. Patchy periventricular and subcortical T2/FLAIR hyperintense foci demonstrated bilaterally. Additional symmetric foci within the [place]. Largest withi n the posterior right frontal lobe measuring up to 1.2 cm (series 501, image 26). Some foci demonstra te perpendicular orientation to the ventricles. There are curvilinear grouped blooming artifact within the right thalamus on the susceptibility weigh indra imaging. This corresponds to enhancing arteriovenous vessels on postcontrast imaging. No other ab normal contrast enhancement identified. This region measures approximately 1.5 x 1.2 centimeters (ser ies 802, image 17). There is no corresponding T2/FLAIR hyperintensity. The ventricular system and cis ternal spaces are normal in size and appearance. The brain volume is age appropriate. Midline structures demonstrate normal morphology. The craniocervical junction appears within normal limits. The dural venous sinuses appear patent. The visualized sinuses are clear. Left aphakia. IMPRESSION: 1. 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 2. Nonspecific T2/FLAIR hyperintense foci within the periventricular and subcortical white matter and susannah. Findings could be seen with demyelinating process versus chronic small vessel ischemic disease versus other. No enhancement to suggest active process. 3. No evidence for acute/subacute ischemia.
== END | disposition home or self-care (01) ==
LOC: RADMRIMAIN 14:28
PROVIDERS: ATTEND Internal Medicine Critical Care Medicine
DX: R90.82 White matter disease, unspecified (principal); G93.89 Other specified disorders of brain; R51.9 Headache, unspecified
CPT/HCPCS: 70553; A9585

== ENCOUNTER → 2023-09-27 | Outpatient (CLI) | payer MEDICARE ==
--- NOTE | 2023-09-29 08:56 | CT ---
EXAMINATION TYPE: CT angio abdomen pelvis DATE OF EXAM: 09/27/2023 COMPARISON: 11/14/2022 HISTORY: 73-year-old male I71.43, hx of abdominal/iliac stents TECHNIQUE: Contiguous axial scanning of the abdomen and pelvis before and after administration of 80 ml Isovue-370 IV contrast. Delayed scanning through the stent graft. Coronal/sagittal reconstruction s performed. 3-D reconstructions generated on a dedicated workstation. CT DLP: 2239.60 mGycm Automated exposure control for dose reduction was used. FINDINGS: Heart borderline in size. There is some endocardial fat deposition at the apical wall. Left ventricle testing prior infarct. No pericardial effusion. A 4 mm lateral left basilar pulmonary nodule remains unchanged. Noncontrast appearance of the liver, gallbladder, spleen, and pancreas within normal limits. Scattered renal cortical cysts are redemonstrated measuring up to 2.9 cm. No excretion of contrast se en on the delayed kidney scan. Correlate for acute kidney injury. Either prominent centrally located cortical lobulation versus solid mass measuring 1.8 cm mid right k idney. This area measured 1.6 cm, previously. Surveillance follow-up advised to exclude an indolent n eoplasm. Mild thickening of the adrenal glands is unchanged without discrete nodularity. No dilated small bowel, free fluid, or free air. No mesenteric or retroperitoneal lymphadenopathy. Scattered mild stool. No pericolonic inflammatory change. Mild diverticulosis of the junction of the descending and sigmoid colon. No pericolonic inflammatory change. Vasculature: Redemonstrated aortobiiliac endovascular stent graft beginning at the level of the right renal artery . Similar mild aneurysm upper abdominal aorta at 3.3 cm. Celiac axis, SMA, and bilateral single renal arteries are patent. The infrarenal [place] sac remains dilated up to 5.7 x 5.1 cm versus 5.5 x 5.5 cm on 11/14/2022. Overa ll not significant change. The stented right and left common iliac arteries remain dilated up to 2.5 and 2.2 cm, unchanged. The stents extend into the bilateral proximal external and internal iliac arteries. There appears to have been development of endoluminal, mural based plaque within the stented proximal left internal iliac artery resulting in mild vessel narrowing. Refer to axial series 7 image 158. Pelvis: Bladder partially distended. Prostate gland is enlarged at 5.6 cm wide. No abnormal fluid collection in the pelvis or pelvic lymphadenopathy. Bones: Moderate degenerative change of the hips. Advanced degenerative disc disease particularly L1-L3 levels. [facility] in the lower thoracic spine. Degen erative grade 1 retrolisthesis L1-L4 levels and grade 1 anterolisthesis L4-L5. Advanced hypertrophic facet arthropathy mid to lower lumbar spine. Sclerotic focus left T10 vertebral body remains unchanged, likely a bone island. IMPRESSION: 0. INCIDENTAL: EITHER A PROMINENT CORTICAL LOBULATION VERSUS SUBTLE SOLID MASS MEASURING 1.8 CM WITHI N THE RIGHT KIDNEY. THIS AREA MEASURED 1.6 CM, PREVIOUSLY. RECOMMEND 6 MONTH FOLLOW-UP SURVEILLANCE C T TO EXCLUDE AN INDOLENT NEOPLASM. 1. SIMILAR MILD ANEURYSM UPPER ABDOMINAL AORTA AT 3.3 CM. 2. INFRARENAL ABDOMINAL AORTOBIILIAC ENDOVASCULAR STENT GRAFT REDEMONSTRATED. THE STENT GRAFT EXTENDS INTO THE PROXIMAL BILATERAL INTERNAL AND EXTERNAL ILIAC ARTERIES . 3. RELATIVELY SIMILAR ANEURYSM OF THE INFRARENAL [place] SAC UP TO 5.7 X 5.1 CM (VERSUS 5.5 X 5.5 CM, PREVIOUSLY). NO EVIDENCE FOR ENDOLEAK. 4. THE STENTED RIGHT AND LEFT COMMON ILIAC ARTERIES REMAIN MILDLY DILATED UP TO 2.5 AND 2.2 CM, RESPE CTIVELY. 5. INTERVAL DEVELOPMENT OF SOME MURAL BASED PLAQUE NARROWING THE STENTED LUMEN OF THE PROXIMAL LEFT I NTERNAL ILIAC ARTERY.
== END | disposition home or self-care (01) ==
LOC: RADCTMAIN 14:18
PROVIDERS: ATTEND Surgery
DX: I71.43 Infrarenal abdominal aortic aneurysm, without rupture (principal); Z95.828 Presence of other vascular implants and grafts
CPT/HCPCS: 74174; Q9967

== ENCOUNTER → 2023-09-27 | Outpatient (CLI) | payer MEDICARE ==
[2023-09-27 08:33] LABS: ALT 30 U/L (4-49); AST 24 U/L (17-59); African American GFR (CKD) 51 (>60 ml/min/1.73 sqM); Albumin 4.1 g/dL (3.5-5.0); Albumin/Globulin Ratio 1.5; Alkaline Phosphatase 105 U/L (38-126); Anion Gap 9 mmol/L; Blood Urea Nitrogen 32 mg/dL (9-20); Calcium 9.4 mg/dL (8.4-10.2); Carbon Dioxide 26 mmol/L (22-30); Chloride 109 mmol/L (98-107); Globulin 2.7 g/dL; Glucose 105 mg/dL (74-99); Non-African American GFR(CKD) 44 (>60 ml/min/1.73 sqM); Potassium 4.6 mmol/L (3.5-5.1); Sodium 144 mmol/L (137-145); Total Bilirubin 0.5 mg/dL (0.2-1.3); Total Protein 6.8 g/dL (6.3-8.2)
[2023-09-27 11:12] LABS: Chol/HDL Ratio 2.36 Ratio; LDL Cholesterol,Calculated 47.7 mg/dL (0.0-131.0); VLDL Calculation 15.24 mg/dL (5.00-40.00)
== END | disposition home or self-care (01) ==
LOC: LABWHC1 07:45
PROVIDERS: ATTEND Internal Medicine Interventional Cardiology
DX: E78.2 Mixed hyperlipidemia (principal)
CPT/HCPCS: 36415; 80053; 80061

== ENCOUNTER → 2023-11-29 | Day surgery (SDC) | payer MEDICARE ==
[2023-11-22 13:05] VITALS: BMI 29.5
[~2023-11-29] MED LIST changes: -ALPRAZolam 0.25 MG TAB PO PRN; -ALPRAZolam 0.5 MG TAB PO PRN; -DEXAMETHASONE SOD PHOSPHATE 4 MG/ML 1 ML VIAL IV ONE; -HYDROmorphone 0.5 MG/0.5 ML SYRINGE IVP PRN; +LIDOCAINE 1% (10MG/ML) FOR IV START INTRADERMA PRN; +LIDOCAINE 1% INJ 10MG/ML (20 ML MDV) ONE; -ONDANSETRON 4 MG/2 ML VIAL IVP ONE; +ONDANSETRON 4 MG/2 ML VIAL IVP PRN; +PROPOFOL 10 MG/ML 20 ML VIAL IV ONE; -SODIUM CHLORIDE 0.9% 1,000 ML in EMPTY BAG 1 BAG IV ONE; -ZOLPIDEM 5 MG TAB PO PRN; -ceFAZolin 1 GM in SODIUM CHLORIDE 0.9% 250 ML IRRIGATION PRN
--- NOTE | 2023-11-29 08:45 | P.GSHP ---
History of Present Illness H&P Date: 11/29/23 CHIEF COMPLAINT: Colon screen HISTORY OF PRESENT ILLNESS: The patient is a 73-year-old male who presents for colon screen. Lower endoscopy was offered for further evaluation and management. PAST MEDICAL HISTORY: Please see list. PAST SURGICAL HISTORY: Please see list. MEDICATIONS: Please see list. ALLERGIES: Please see list. SOCIAL HISTORY: No illicit drug use FAMILY HISTORY: No reports of Crohn disease or ulcerative colitis. REVIEW OF ORGAN SYSTEMS: CONSTITUTIONAL: No reports of fevers or chills. PHYSICAL EXAM: VITAL SIGNS: Stable GENERAL: Well-developed pleasant in no acute distress. HEENT: No scleral icterus. Extraocular movements grossly intact. Moist buccal mucosa. NECK: Supple without lymphadenopathy. CHEST: Unlabored respirations. Equal bilateral excursions. CARDIOVASCULAR: Regular rate and rhythm. Distal 2+ pulses. ABDOMEN: Soft, nontender, nondistended. MUSCULOSKELETAL: No clubbing, cyanosis, or edema. ASSESSMENT: 1. Colon screen. PLAN: 1. Recommend proceeding with a lower endoscopy Past Medical History Past Medical History: Coronary Artery Disease (CAD), COPD, CVA/TIA, Hearing Disorder / Deafness, Hyperlipidemia, Hypertension, Myocardial Infarction ([place]), Osteoarthritis (OA), Prostate Disorder Additional Past Medical History / Comment(s): "Hx possible TIA". As a child(1959) had a punctured lung treated with chest tube. Tinnitus. Current small right inguinal hernia, no symptoms at this time. Last Myocardial Infarction Date:: 2006 History of Any Multi-Drug Resistant Organisms: None Reported Past Surgical History: Heart Catheterization With Stent, Prostate Surgery Additional Past Surgical History / Comment(s): Heart catheterization X2, stent with DE in 2006, stent 09/2020, colonoscopy, cataract surgery left eye("didn't take well), 2 prostate procedures, 4-5 aneurysms repaired with 7 stents 09/2022. Past Anesthesia/Blood Transfusion Reactions: No Reported Reaction, Motion Sickness Additional Past Anesthesia/Blood Transfusion Reaction / Comment(s): Hx sea sickness 1949's-s. No blood transfusions. Date of Last Stent Placement:: 09/2020 Past Psychological History: No Psychological Hx Reported Smoking Status: Current every day smoker Past Alcohol Use History: Rare Additional Past Alcohol Use History / Comment(s): STARTED SMOKING AT AGE 15, SMOKES 1PPD. Past Drug Use History: None Reported - Past Family History Father History Unknown: Yes Family Medical History: Cancer Additional Family Medical History / Comment(s): LUNG CANCER. Mother History Unknown: Yes Family Medical History: Coronary Artery Disease (CAD) Additional Family Medical History / Comment(s): Varicose veins. Medications and Allergies Home Medications Medication Instructions Recorded Confirmed Type Ezetimibe [Zetia] 10 mg PO DAILY 07/24/19 11/22/23 History Vit C/E/Zn/Coppr/Lutein/Zeaxan 1 cap PO BID 07/24/19 11/22/23 History [Preservision Areds 2 Softgel] atenoloL 25 mg PO QAM 07/24/19 11/22/23 History tadalafiL [Cialis] 5 mg PO DAILY 07/24/19 11/22/23 History Losartan Potassium 50 mg PO BID 11/04/20 11/22/23 History Aspirin EC [Ecotrin Low Dose] 81 mg PO DAILY 06/28/22 11/22/23 History Atorvastatin [Lipitor] 20 mg PO DAILY 06/28/22 11/22/23 History Unk Vitamin D Gummie 1 tab PO Q48H 10/06/22 11/22/23 History Tamsulosin [Flomax] 0.4 mg PO DAILY 11/22/23 11/22/23 History amLODIPine [Norvasc] 5 mg PO BID 11/22/23 11/22/23 History cloNIDine HCL 0.1 mg PO BID 11/22/23 11/22/23 History Allergies Allergy/AdvReac Type Severity Reaction Status Date / Time No Known Allergies Allergy Verified 11/22/23 12:50
[2023-11-29] MEDS: LACTATED RINGERS 1,000 ML IV SCH ×2 (09:10→09:11)
[2023-11-29 09:20] VITALS: TEMP 98.4
--- NOTE | 2023-11-29 10:29 | P.PN ---
Progress Note - Text Progress Note Date: 11/29/[address] elevations atypical chest pain requesting right internal hernia repair. EKG obtained.
--- NOTE | 2023-11-29 10:36 | P.PCN ---
Date of Procedure: 11/29/23 Description of Procedure: PREOPERATIVE DIAGNOSIS: Personal history of colon polyps Colonoscopy screening POSTOPERATIVE DIAGNOSIS: Tubular adenoma descending colon Tubular adenoma sigmoid colon Sigmoid diverticulosis OPERATION: Colonoscopy to the ileocecal valve and appendiceal orifice, cecum Colonoscopy with hot snare polypectomy SURGEON: Isabell Reed MD. ANESTHESIA: MAC. INDICATIONS: The patient is an 73-year-old male who presents personal history of colon polyps. Last colonoscopy 5 years. Benefits and risks were described and informed consent was obtained. DESCRIPTION OF PROCEDURE: The patient had undergone Golytely prep. The patient had been brought into the operating room and laid in the left lateral decubitus position. After adequate intravenous sedation, the rectum was examined with 2% lidocaine jelly. The prostate was unremarkable. External hemorrhoids were encountered. The rectal tone was within normal limits. No lesions were palpated in the rectal vault. An Olympus colonoscope was advanced until the cecum, ileocecal valve and appendiceal orifice were clearly viewed. The prep was good. Sigmoid diverticulosis was encountered. Colonic polyps were found and removed. No evidence of focal colitis was found. Retroflexion of the scope demonstrated grade 2 internal hemorrhoids without active bleeding or inflammation. The colon was desufflated. The patient had tolerated the procedure well. Withdrawal time was over 6 minutes. FINDINGS: Aronchick preparation quality scale 2 (1-5) Internal hemorrhoids, grade 2 External hemorrhoids, grade 2. No arteriovenous malformations. Multiple dilated colonic venules Sigmoid diverticulosis Removal of 3 polyps: - Snare polypectomy descending colon 2, 5 to 8 mm tubulovillous adenoma - Snare polypectomy sigmoid colon, 8 mm flat villous adenoma No focal colitis. RECOMMENDATIONS: Given severity of tubular adenomas, recommend repeat colonoscopy 3 years, 2026 Plan - Discharge Summary Discharge Rx Participant: No New Discharge Prescriptions: Continue Vit C/E/Zn/Coppr/Lutein/Zeaxan [Preservision Areds 2 Softgel] 1 cap PO BID tadalafiL [Cialis] 5 mg PO DAILY atenoloL 25 mg PO QAM Ezetimibe [Zetia] 10 mg PO DAILY Losartan Potassium 50 mg PO BID Atorvastatin [Lipitor] 20 mg PO DAILY Unk Vitamin D Gummie 1 tab PO Q48H Aspirin EC [Ecotrin Low Dose] 81 mg PO DAILY amLODIPine [Norvasc] 5 mg PO BID Tamsulosin [Flomax] 0.4 mg PO DAILY cloNIDine HCL 0.1 mg PO BID Discharge Medication List Ezetimibe [Zetia] 10 mg PO DAILY 07/24/19 [History] Vit C/E/Zn/Coppr/Lutein/Zeaxan [Preservision Areds 2 Softgel] 1 cap PO BID 07/24/19 [History] atenoloL 25 mg PO QAM 07/24/19 [History] tadalafiL [Cialis] 5 mg PO DAILY 07/24/19 [History] Losartan Potassium 50 mg PO BID 11/04/20 [History] Aspirin EC [Ecotrin Low Dose] 81 mg PO DAILY 06/28/22 [History] Atorvastatin [Lipitor] 20 mg PO DAILY 06/28/22 [History] Unk Vitamin D Gummie 1 tab PO Q48H 10/06/22 [History] Tamsulosin [Flomax] 0.4 mg PO DAILY 11/22/23 [History] amLODIPine [Norvasc] 5 mg PO BID 11/22/23 [History] cloNIDine HCL 0.1 mg PO BID 11/22/23 [History] Follow up Appointment(s)/Referral(s): Isabell Reed MD [STAFF PHYSICIAN] - 01/02/24 10:00 am Patient Instructions/Handouts: Diverticulosis (GEN), Colorectal Polyps (GEN), Diverticulosis Diet (GEN) Activity/Diet/Wound Care/Special Instructions: Repeat colonoscopy 3 years, 2026 Discharge Disposition: HOME SELF-CARE
[2023-11-29 11:20] VITALS: BP 160/104; PULSE 63; RESP 18
--- NOTE | 2023-11-29 11:33 | P.PN ---
Progress Note - Text Progress Note Date: 11/29/23 Patient seen and evaluated by cardiology. Risk of acute OH compared with prior results. Patient was cleared for discharge per cardiology.
--- NOTE | 2023-11-29 12:01 | P.CRDCN ---
History of Present Illness History of present illness: HISTORY OF PRESENT ILLNESS: This is a 73 year old male with a past medical history significant for hypertension, hyperlipidemia, and coronary artery disease. Patient follows in the office with Dr. Begum. We have been asked to see the patient in consultation for abnormal EKG. Patient examined at the bedside in the PACU. he is status post colonoscopy today with Dr. Reed. A routine EKG was completed postoperatively and computer interpretation read out as "Acute MS", prompting cardiology evaluation. Patient denies any chest pain or pressure. He denies any shortness of breath. Vital signs are stable. * EKG reviewed revealing early repolarization in anterior lateral leads. EKG is similar to multiple previous EKGs dating back to 2019. * Most recent echocardiogram obtained in July 2022 revealed normal ejection fraction, mild MR, mild TR, severe LVH * Cardiac catheterization history: August 2022 revealing 20% mid LAD, 60% distal LAD, 60% diagonal 2, 20% circumflex, 40% mid RCA, right dominant system. Patient has had previous stenting of the proximal RCA in 2019 and proximal diagonal 2 in 2004 * Patient underwent Lexiscan stress test in July 2022 revealing prior myocardial infarction involving anterior apical wall with no evidence of str ess-induced ischemia. REVIEW OF SYSTEMS: At the time of my exam: CONSTITUTIONAL: Denies fever or chills. HEENT: Denies blurred vision, vision changes, or eye pain. Denies hemoptysis CARDIOVASCULAR: Denies chest pain. Denies orthopnea. Denies PND. Denies palpitations RESPIRATORY: Denies shortness of breath. GASTROINTESTINAL: Denies abdominal pain. Denies nausea or vomiting. HEMATOLOGIC: Denies bleeding disorders. GENITOURINARY: Denies any blood in urine. SKIN: Denies pruitis. Denies rash. PHYSICAL EXAM: VITAL SIGNS: Reviewed. GENERAL: Well-developed in no acute distress. HEENT: Head is normocephalic. Pupils are equal, round. Sclerae anicteric. Mucous membranes of the mouth are moist. Neck supple. No JVD or thyromegaly LUNGS: Respirations even and unlabored. Lungs essentially clear to auscultation bilaterally. HEART: Regular rate and rhythm. S1 and S2 heard. ABDOMEN: Soft. Nondistended. Nontender. EXTREMITIES: Normal range of motion. No clubbing or cyanosis. Peripheral pulses intact. No lower extremity edema NEUROLOGIC: Awake and alert. Oriented x 3. ASSESSMENT: History of colon polyps, status post colonoscopy Abnormal EKG revealing early repolarization in anterolateral leads. EKG is similar to previous EKGs dating back to 2019, no evidence of acute MS History of coronary artery disease with previous stenting Hypertension Hyperlipidemia PLAN: EKG was obtained per orders of Dr. Reed postoperatively. However, the patient denies any complaints of chest pain or pressure. Patient was evaluated in the postoperative area with Dr. Alonso. EKG is similar to previous EKGs from 2019. An acute coronary event has been ruled out. The patient may be discharged home today from a cardiac perspective. Nurse practitioner note has been reviewed by physician. Signing provider agrees with the documented findings, assessment, and plan of care. Past Medical History Past Medical History: Coronary Artery Disease (CAD), COPD, CVA/TIA, Hearing Disorder / Deafness, Hyperlipidemia, Hypertension, Myocardial Infarction (MS), Osteoarthritis (OA), Prostate Disorder Additional Past Medical History / Comment(s): "Hx possible TIA". As a child(1959) had a punctured lung treated with chest tube. Tinnitus. Current small right inguinal hernia, no symptoms at this time. Last Myocardial Infarction Date:: 2006 History of Any Multi-Drug Resistant Organisms: None Reported Past Surgical History: Heart Catheterization With Stent, Prostate Surgery Additional Past Surgical History / Comment(s): Heart catheterization X2, stent with MS in 2006, stent 09/2020, colonoscopy, cataract surgery left eye("didn't take well), 2 prostate procedures, 4-5 aneurysms repaired with 7 stents 09/2022. Past Anesthesia/Blood Transfusion Reactions: No Reported Reaction, Motion Sickness Additional Past Anesthesia/Blood Transfusion Reaction / Comment(s): Hx sea sickness 1949's-s. No blood transfusions. Date of Last Stent Placement:: 09/2020 Past Psychological History: No Psychological Hx Reported Smoking Status: Current every day smoker Past Alcohol Use History: Rare Additional Past Alcohol Use History / Comment(s): STARTED SMOKING AT AGE 15, SMOKES 1PPD. Past Drug Use History: None Reported - Past Family History Father History Unknown: Yes Family Medical History: Cancer Additional Family Medical History / Comment(s): LUNG CANCER. Mother History Unknown: Yes Family Medical History: Coronary Artery Disease (CAD) Additional Family Medical History / Comment(s): Varicose veins. Medications and Allergies Home Medications Medication Instructions Recorded Confirmed Type Ezetimibe [Zetia] 10 mg PO DAILY 07/24/19 11/29/23 History Vit C/E/Zn/Coppr/Lutein/Zeaxan 1 cap PO BID 07/24/19 11/29/23 History [Preservision Areds 2 Softgel] atenoloL 25 mg PO QAM 07/24/19 11/29/23 History tadalafiL [Cialis] 5 mg PO DAILY 07/24/19 11/29/23 History Losartan Potassium 50 mg PO BID 11/04/20 11/29/23 History Aspirin EC [Ecotrin Low Dose] 81 mg PO DAILY 06/28/22 11/29/23 History Atorvastatin [Lipitor] 20 mg PO DAILY 06/28/22 11/29/23 History Unk Vitamin D Gummie 1 tab PO Q48H 10/06/22 11/29/23 History Tamsulosin [Flomax] 0.4 mg PO DAILY 11/22/23 11/29/23 History amLODIPine [Norvasc] 5 mg PO BID 11/22/23 11/29/23 History cloNIDine HCL 0.1 mg PO BID 11/22/23 11/29/23 History Allergies Allergy/AdvReac Type Severity Reaction Status Date / Time No Known Allergies Allergy Verified 11/29/23 09:00 Physical Exam Vitals: Vital Signs Temp Pulse Resp BP Pulse Ox 11/29/23 11:17 63 18 160/104 95 11/29/23 10:02 53 L 16 148/79 95 11/29/23 09:47 52 L 16 95/58 94 L 11/29/23 08:59 98.4 F 71 20 170/87 95 Intake and Output 11/28/23 11/29/23 11/29/23 22:59 06:59 14:59 Intake Total 850 Balance 850 Intake: IV 850 Other: Weight 104.4 kg Results Current Medications Generic Name Dose Route Start Last Admin Trade Name Freq PRN Reason Stop Dose Admin Lactated Ringer's 1,000 mls @ 20 mls/hr 11/29/23 05:18 11/29/23 09:11 Lactated Ringers IV 12/29/23 05:19 850 mls .Q24H TWAN Administration Lidocaine HCl 0.1 ml 11/29/23 05:18 Lidocaine 1% (10mg/Ml) For Iv Start INTRADERMA 12/29/23 05:19 PER PROTOCOL PRN IV Start Ondansetron HCl 4 mg 11/29/23 07:00 Ondansetron 4 Mg/2 Ml Vial IVP 11/29/23 23:00 ONCE PRN Phase 1 or 2 - Nausea/Vomiting Intake and Output 11/28/23 11/29/23 11/29/23 22:59 06:59 14:59 Intake Total 850 Balance 850 Intake: IV 850 Other: Weight 104.4 kg Patient Weight 11/30/23 06:59 Weight 104.4 kg
== END | disposition home or self-care (01) ==
LOC: ORWHC2ENDO 08:27
PROVIDERS: ATTEND Surgery Plastic and Reconstructive Surgery
DX: Z12.11 Encounter for screening for malignant neoplasm of colon (principal); D12.4 Benign neoplasm of descending colon; D12.5 Benign neoplasm of sigmoid colon; K57.30 Diverticulosis of large intestine without perforation or abscess without bleeding; K64.1 Second degree hemorrhoids; I25.10 Atherosclerotic heart disease of native coronary artery without angina pectoris; J44.9 Chronic obstructive pulmonary disease, unspecified; I10 Essential (primary) hypertension; E78.5 Hyperlipidemia, unspecified; I25.2 Old myocardial infarction; M19.90 Unspecified osteoarthritis, unspecified site; F17.210 Nicotine dependence, cigarettes, uncomplicated; F10.90 Alcohol use, unspecified, uncomplicated; Z86.73 Personal history of transient ischemic attack (TIA), and cerebral infarction without residual deficits; Z86.010 Personal history of colon polyps; Z98.890 Other specified postprocedural states; Z80.1 Family history of malignant neoplasm of trachea, bronchus and lung; Z82.49 Family history of ischemic heart disease and other diseases of the circulatory system; Z79.899 Other long term (current) drug therapy
CPT/HCPCS: 88305; 45385; J2001; J2704

== ENCOUNTER 2024-04-11 05:51 | Day surgery (SDC) | payer MEDICARE ==
[~2024-04-11 05:51] MED LIST changes: -LIDOCAINE 1% (10MG/ML) FOR IV START INTRADERMA PRN; -LIDOCAINE 1% INJ 10MG/ML (20 ML MDV) ONE; -PROPOFOL 10 MG/ML 20 ML VIAL IV ONE
[2024-04-11] MEDS ORDERED: LIDOCAINE 1% (10MG/ML) FOR IV START INTRADERMA PRN (06:10)
--- NOTE | 2024-04-11 06:21 | P.GSHP ---
History of Present Illness H&P Date: 04/11/24 CHIEF COMPLAINT: Inguinal hernia, right. HISTORY OF PRESENT ILLNESS: The patient is a 73-year-old male who presents with a history of swelling and pain along the right groin. He has had previous repair. He's noted increased swelling including pain of the area. Now he presents for repair of his inguinal hernia. PAST MEDICAL HISTORY: Please see list. PAST SURGICAL HISTORY: Please see list. MEDICATIONS: Please see list. ALLERGIES: Please see list. SOCIAL HISTORY: No illicit drug use FAMILY HISTORY: No reports of Crohn disease or ulcerative colitis. REVIEW OF ORGAN SYSTEMS: CONSTITUTIONAL: No reports of fevers or chills. No reports of weight loss despite prior attempts. GI: Denies any blood in stools or constipation. PHYSICAL EXAM: VITAL SIGNS: Stable GENERAL: Well-developed pleasant male in no acute distress. HEENT: No scleral icterus. Extraocular movements grossly intact. Moist buccal mucosa. NECK: Supple without lymphadenopathy. CHEST: Unlabored respirations. Equal bilateral excursions. CARDIOVASCULAR: Regular rate and rhythm. Distal 2+ pulses. ABDOMEN: Soft, nondistended. No peritoneal signs. Palpable defect of the right groin. MUSCULOSKELETAL: No clubbing, cyanosis, or edema. ASSESSMENT: 1. Inguinal hernia, right PLAN: 1. Recommend proceeding with a robotic inguinal repair with mesh with possible bilateral approach. 2. Benefits and risks of surgical intervention was discussed including possibility of open technique. 3. DVT prophylaxis. 4. Antibiotic prophylaxis. 5. Non narcotic pain management including abdominal wall block described 6. Blood sugar glucose described. 7. Weight loss management described. Past Medical History Past Medical History: Coronary Artery Disease (CAD), COPD, CVA/TIA, Hearing Disorder / Deafness, Hyperlipidemia, Hypertension, Myocardial Infarction (ND), Osteoarthritis (OA), Prostate Disorder Additional Past Medical History / Comment(s): "Hx possible TIA"/loss sense of taste and smell, as a child(1959) had a punctured lung treated with chest tube. bilateral tinnitus. Current small right inguinal hernia, no symptoms at this time. Last Myocardial Infarction Date:: 2019 History of Any Multi-Drug Resistant Organisms: None Reported Past Surgical History: Heart Catheterization, Heart Catheterization With Stent, Prostate Surgery Additional Past Surgical History / Comment(s): Heart catheterization X2, stent with ND in 2006, stent 09/2020, colonoscopy, cataract surgery left eye("didn't take well), 3 prostate procedures, 4-5 aortic and near kidneys aneurysms repaired with 7 stents 09/[address] Tyler. Past Anesthesia/Blood Transfusion Reactions: No Reported Reaction, Motion Sickness Additional Past Anesthesia/Blood Transfusion Reaction / Comment(s): Hx sea sickness 1949's-s. No blood transfusions. Date of Last Stent Placement:: 09/2020 Smoking Status: Current every day smoker - Past Family History Father History Unknown: Yes Family Medical History: Cancer Additional Family Medical History / Comment(s): LUNG CANCER. Mother History Unknown: Yes Family Medical History: Coronary Artery Disease (CAD) Additional Family Medical History / Comment(s): Varicose veins. Medications and Allergies Home Medications Medication Instructions Recorded Confirmed Type Ezetimibe [Zetia] 10 mg PO QAM 07/24/19 04/11/24 History Vit C/E/Zn/Coppr/Lutein/Zeaxan 1 cap PO BID 07/24/19 04/11/24 History [Preservision Areds 2 Softgel] atenoloL 25 mg PO QAM 07/24/19 04/11/24 History tadalafiL [Cialis] 5 mg PO QAM 07/24/19 04/11/24 History Losartan Potassium 50 mg PO BID 11/04/20 04/11/24 History Aspirin EC [Ecotrin Low Dose] 81 mg PO QAM 06/28/22 04/11/24 History Atorvastatin [Lipitor] 20 mg PO QAM 06/28/22 04/11/24 History Unk Vitamin D Gummie 1 tab PO Q48H 10/06/22 04/11/24 History amLODIPine [Norvasc] 5 mg PO BID 11/22/23 04/11/24 History cloNIDine HCL 0.1 mg PO BID 11/22/23 04/11/24 History Allergies Allergy/AdvReac Type Severity Reaction Status Date / Time No Known Allergies Allergy Verified 04/11/24 06:14
[2024-04-11] MEDS: ACETAMINOPHEN TAB 500 MG TAB PO PRN (06:27)
[2024-04-11] MEDS: MELOXICAM 7.5 MG TAB PO PRN (06:28)
[2024-04-11] MEDS: TAMSULOSIN 0.4 MG CAP.ER.24H PO STA (06:28)
[2024-04-11] MEDS: LACTATED RINGERS 1,000 ML IV SCH (06:37)
[2024-04-11] MEDS: MIDAZOLAM 2 MG/2 ML VIAL IVP ONE (06:45)
[2024-04-11 06:51] LABS: Basophils # (A) 0.1 k/uL (0-0.2); Basophils % (A) 1 %; Eosinophils # (A) 0.6 k/uL (0-0.7); Eosinophils % (A) 5 %; HCT 45.8 % (39.0-53.0); HGB 14.6 gm/dL (13.0-17.5); Lymphocytes # (A) 1.8 k/uL (1.0-4.8); Lymphocytes % (A) 16 %; MCH 31.1 pg (25.0-35.0); MCV 97.5 fL (80.0-100.0); Mean Platelet Volume 8.7; Monocytes # (A) 0.8 k/uL (0-1.0); Monocytes % (A) 8 %; Neutrophils # (A) 7.3 k/uL (1.3-7.7); Neutrophils % (A) 68 %; Platelet Count 167 k/uL (150-450); RDW 13.5 % (11.5-15.5); WBC 10.7 k/uL (3.8-10.6)
[2024-04-11] MEDS: ONDANSETRON 4 MG/2 ML VIAL IVP ONE (06:56)
[2024-04-11] MEDS: DEXAMETHASONE SOD PHOSPHATE 4 MG/ML 1 ML VIAL IV ONE (06:56)
[2024-04-11] MEDS ORDERED: MIDAZOLAM 2 MG/2 ML VIAL IV PRN (07:00)
[2024-04-11] MEDS ORDERED: HYDROmorphone 0.5 MG/0.5 ML SYRINGE IVP PRN (07:00)
[2024-04-11 07:06] LABS: ALT 30 U/L (4-49); AST 25 U/L (17-59); African American GFR (CKD) 48 (>60 ml/min/1.73 sqM); Albumin 3.7 g/dL (3.5-5.0); Alkaline Phosphatase 99 U/L (38-126); Anion Gap 4 mmol/L; Blood Urea Nitrogen 36 mg/dL (9-20); Calcium 8.9 mg/dL (8.4-10.2); Carbon Dioxide 23 mmol/L (22-30); Chloride 113 mmol/L (98-107); Glucose 97 mg/dL (74-99); Non-African American GFR(CKD) 41 (>60 ml/min/1.73 sqM); Potassium 4.4 mmol/L (3.5-5.1); Sodium 140 mmol/L (137-145); Total Bilirubin 0.5 mg/dL (0.2-1.3); Total Protein 6.3 g/dL (6.3-8.2)
[2024-04-11] MEDS: HEPARIN SODIUM,PORCINE 5,000 UNIT/ML 1 ML VIAL SQ PRN (07:16)
[2024-04-11] MEDS ORDERED: NEOSTIGMINE 1 MG/ML 10 ML VIAL ONE (07:41)
[2024-04-11] MEDS ORDERED: SODIUM CHLORIDE 0.9% (PF) 10 ML VIAL ONE (07:41)
[2024-04-11] MEDS ORDERED: ePHEDrine 50 MG/ML 1 ML VIAL ONE (07:41)
[2024-04-11] MEDS ORDERED: ROCURONIUM 10 MG/ML (5 ML VIAL) IV ONE (07:41)
[2024-04-11] MEDS ORDERED: ROPIVACAINE 5 MG/ML 30 ML VIAL ONE (07:41)
[2024-04-11] MEDS ORDERED: DEXAMETHASONE SOD PHOSPHATE 4 MG/ML 1 ML VIAL ONE (07:41)
[2024-04-11] MEDS ORDERED: GLYCOPYRROLATE 0.2 MG/ML 2 ML VIAL ONE (07:41)
[2024-04-11] MEDS ORDERED: LIDOCAINE 1% INJ 10MG/ML (20 ML MDV) ONE (07:41)
[2024-04-11] MEDS ORDERED: fentaNYL (PF) 50 MCG/ML 2 ML AMP ONE (07:41)
[2024-04-11] MEDS ORDERED: MIDAZOLAM 2 MG/2 ML VIAL ONE (07:41)
[2024-04-11] MEDS ORDERED: PROPOFOL 10 MG/ML 20 ML VIAL IV ONE (07:41)
[2024-04-11] MEDS ORDERED: SUCCINYLCHOLINE CHLORIDE 200 MG/10 ML VIAL IV ONE (07:41)
[2024-04-11] MEDS: LIDOCAINE 1%-EPI 1:100,000 20 ML VIAL SQ ONE ×2 (08:06→08:10)
[2024-04-11] MEDS: LACTATED RINGERS 1,000 ML IV ONE (08:59)
[2024-04-11 10:14] VITALS: TEMP 97.4
[2024-04-11 11:11] VITALS: RESP 18
[2024-04-11 12:09] VITALS: BP 145/73; PULSE 57
--- NOTE | 2024-04-13 20:06 | P.ANPRN ---
Procedure Note - Anesthesia - Nerve Block Performed Bilateral Erector Spinae Single Time Out Performed: Yes Date of Procedure: 04/11/24 Procedure Start Time: :02 Procedure Stop Time: 07:13 Location of Patient: PreOp Indication: Acute Post-Operative Pain, Requested by Surgeon Sedation Type: Sedate with meaningful contact maintained Preparation: Sterile Prep Position: Prone Needle Types: Pajunk Needle Gauge: 21 Ultrasound used to visualize needle placement: Yes Ultrasound used to observe medication spread: Yes Blood Aspirated: No Pain Paresthesia on Injection Noted: No Resistance on Injection: Normal Image Stored and Saved: Yes Events: Uneventful and Well Tolerated (Ropivacaine 0.5% 15 cc plus normal saline 10 cc plus dexamethasone 4 mg given bilaterally at L1)
--- NOTE | 2024-04-15 13:07 | P.OP ---
Date of Procedure: 04/11/24 Description of Procedure: SURGEON: ISABELL REED MD PREOPERATIVE DIAGNOSES: 1. Initial right inguinal hernia 2. Coronary artery disease 3. Chronic obstructive pulmonary disease 4. History of transient ischemic attack 5. Hyperlipidemia 6. Hypertensive heart disease 7. History of myocardial infarction 8. Benign prostatic hypertrophy with outflow obstruction 9. Tinnitus 10. Status post heart catheterization with stent placement 11. 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 Motion sickness 14. Tobacco abuse disorder POSTOPERATIVE DIAGNOSES: 1. Initial bilateral inguinal hernia 2. Coronary artery disease 3. Chronic obstructive pulmonary disease 4. History of transient ischemic attack 5. Hyperlipidemia 6. Hypertensive heart disease 7. History of myocardial infarction 8. Benign prostatic hypertrophy with outflow obstruction 9. Tinnitus 10. Status post heart catheterization with stent placement 11. 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 Motion sickness 14. Tobacco abuse disorder 15. Right inguinal lipoma OPERATION: 1. Robotic-assisted da Juan Xi laparoscopic repair of initial reducible right direct inguinal hernia with mesh, 10 x [address] 2. Robotic-assisted da Juan Xi laparoscopic repair of initial reducible left direct inguinal hernia with mesh, 10 x [address] 3. Resection of incarcerated right inguinal lipoma, 6 x 4 cm ANESTHESIA: General, regional with local anesthetic ESTIMATED BLOOD LOSS: 5 mL. SPECIMENS: 1. Left inguinal hernia sac 2. Right inguinal hernia lipoma COMPLICATIONS: None. FINDINGS: 1. Direct left inguinal hernia defect, 2 cm 2. Direct right inguinal hernia defect, 3 cm 3. Right inguinal subfascial lipoma 6 x 4 cm 4. Left inguinal hernia sac, 2 cm INDICATIONS: The patient is a 73-year-old gentleman who presents with symptomatic bilateral inguinal hernia. Now presents for definitive surgical intervention. Laparoscopic versus open and robotic approaches were discussed. Benefits and risks including bleeding, infection, injury to the vas deferens as well as sterility and chronic groin pain were reviewed. Placement of mesh was also described. Informed consent was obtained. DESCRIPTION: In the preoperative area, the patient was marked with indelible marker along the inguinal hernia. The patient was brought to the operating room and initially laid in supine position. The abdomen had been prepped and draped in standard sterile fashion. Ioban draping was also placed. Prior to incision, a timeout protocol was confirmed with surgical team regarding patient's name including procedures to be performed and location along the right groin. Initial positioning for the robotic assisted ports were selected whereby 15 cm superior to the target anatomy, 0 degree 5 mm laparoscopic trocar entry was performed at the left upper quadrant. The abdomen was insufflated to 15 mmHg which he had tolerated well. Diagnostic laparoscopy demonstrated no injury to bowel, viscera or mesentery. A large defect along the left groin was found and a small defect right side was found. Next, along the epigastrium, 8 mm robot trocar was placed. An 8-mm robotic trocar was placed under direct visualization at the right upper quadrant. An 8 mm port was placed at the left upper quadrant. All trocars were positioned between 10-cm apart from each other. An accessory trocar 12 mm placed along the right upper abdominal wall, lateral. The [employer] robot was primed, draped, prepared for docking along upper abdomen of the patient. The patient was positioned 14 steep Trendelenburg position I then went to the [employer] console. The assistant finance manager was at bedside for exchange of the robot arms and equipment. The right direct inguinal hernia sac was evaginated whereby the peritoneum was scored using Endo scissors with cautery. Once completely reduced into the abdominal cavity, the peritoneal sac of the hernia was stripped. The sac was resected and then passed off for further pathological analysis. The size of the hernia defect was 3 cm with intraoperative films obtained. An inguinal lipoma, subfascial 6 x 4 cm was resected. Using a nonabsorbable 2-0 VLOC, the fascial defect with closure of the shelving portion of the inguinal ligament and conjoined tendon were closed from lateral to medial. The peritoneal defect of the left inguinal hernia site was closed using a pursestring suture. The defect was found to be completely closed with complete reduction of the right direct inguinal hernia were confirmed. As an onlay, an 10 x [address] mesh by [employer] was initially cut in half and entered into the abdominal cavity via the 8 mm trocar. The mesh was tacked to the pelvis using absorbable 2-0 VLOC sutures. Next, careful attention along the left groin demonstrated a smaller left in guinal hernia, direct. The left inguinal hernia sac was evaginated whereby the peritoneum was scored using Endo scissors with cautery. Once completely reduced into the abdominal cavity, the peritoneal sac of the hernia was resected. The sac was resected and then passed off for further pathological analysis. The size of the hernia defect was 2 cm with intraoperative films obtained. Using a nonabsorbable 2-0 VLOC, the peritoneal defect of the left inguinal hernia site was closed using a pursestring suture. The defect was found to be completely closed with complete reduction of the left direct inguinal hernia was confirmed. As an onlay, an 10 x [address] mesh by [employer] was initially cut in half and entered into the abdominal cavity via the 8 mm trocar. The mesh was tacked to the pelvis using absorbable 2-0 VLOC 9-inch length sutures. The robot was undocked from the patient's bedside. I then rescrubbed into the case. Insufflation was released from the abdominal cavity and all instruments were removed from the abdominal cavity. The rest of incisions were reapproximated using 4-0 Monocryl in a running subcuticular fashion. Incisions were cleansed using dilute hydrogen peroxide. Liquid glue was applied to the skin. At the end of the procedure, the needle, sponge and instrument counts had been verified correct by the certified ophthalmic surgical assistant. The patient had tolerated the procedure well and was taken to the postanesthesia care unit in stable condition. Plan - Discharge Summary Discharge Rx Participant: No New Discharge Prescriptions: Continue Vit C/E/Zn/Coppr/Lutein/Zeaxan [Preservision Areds 2 Softgel] 1 cap PO BID tadalafiL [Cialis] 5 mg PO QAM atenoloL 25 mg PO QAM Ezetimibe [Zetia] 10 mg PO QAM Losartan Potassium 50 mg PO BID Atorvastatin [Lipitor] 20 mg PO QAM Unk Vitamin D Gummie 1 tab PO Q48H Aspirin EC [Ecotrin Low Dose] 81 mg PO QAM amLODIPine [Norvasc] 5 mg PO BID cloNIDine HCL 0.1 mg PO BID Discharge Medication List Ezetimibe [Zetia] 10 mg PO QAM 07/24/19 [History] Vit C/E/Zn/Coppr/Lutein/Zeaxan [Preservision Areds 2 Softgel] 1 cap PO BID 07/24/19 [History] atenoloL 25 mg PO QAM 07/24/19 [History] tadalafiL [Cialis] 5 mg PO QAM 07/24/19 [History] Losartan Potassium 50 mg PO BID 11/04/20 [History] Aspirin EC [Ecotrin Low Dose] 81 mg PO QAM 06/28/22 [History] Atorvastatin [Lipitor] 20 mg PO QAM 06/28/22 [History] Unk Vitamin D Gummie 1 tab PO Q48H 10/06/22 [History] amLODIPine [Norvasc] 5 mg PO BID 11/22/23 [History] cloNIDine HCL 0.1 mg PO BID 11/22/23 [History] Follow up Appointment(s)/Referral(s): Isabell Rede MD [STAFF PHYSICIAN] - 04/16/24 6:25 pm (TELEHEALTH - DR WILL CALL YOU BETWEEN 9 am to 8 pm) Patient Instructions/Handouts: *Surgery [facility] - (Anesthesia) Discharge Instructions Outpatient Surgery, *[facility] - Laparoscopy Discharge Instr uctions, Inguinal Hernia Repair (DC) Activity/Diet/Wound Care/Special Instructions: No lifting for 4 pounds in 4 weeks, May 12 Using antibacterial soap. March shower. No bathtub soaks for 2 weeks, April 25 Use ice along incisions for today to prevent swelling. Use Tylenol, simethicone scheduled for the next 24-48 hours for best pain relief. Discharge Disposition: HOME SELF-CARE
== END 2024-04-11 11:44 | disposition home or self-care (01) ==
LOC: OR 05:51
PROVIDERS: ATTEND Surgery Plastic and Reconstructive Surgery
DX: K40.90 Unilateral inguinal hernia, without obstruction or gangrene, not specified as recurrent (principal); I71.40 Abdominal aortic aneurysm, without rupture, unspecified; G89.18 Other acute postprocedural pain; I25.10 Atherosclerotic heart disease of native coronary artery without angina pectoris; I10 Essential (primary) hypertension; E78.5 Hyperlipidemia, unspecified; I25.2 Old myocardial infarction; F17.200 Nicotine dependence, unspecified, uncomplicated; M19.90 Unspecified osteoarthritis, unspecified site; Z86.73 Personal history of transient ischemic attack (TIA), and cerebral infarction without residual deficits; Z95.5 Presence of coronary angioplasty implant and graft; Z80.1 Family history of malignant neoplasm of trachea, bronchus and lung; Z82.49 Family history of ischemic heart disease and other diseases of the circulatory system; Z79.82 Long term (current) use of aspirin; Z79.899 Other long term (current) drug therapy
CPT/HCPCS: 49650; S2900; 64999; 80053; 85025; 88302; 88304

== ENCOUNTER → 2024-06-10 | Outpatient (CLI) | payer MEDICARE ==
--- NOTE | 2024-06-10 13:45 | CTL ---
EXAMINATION TYPE: CT Low Dose Lung DATE OF EXAM ORDERED: 06/10/2024 HISTORY: . Low Dose CT Lung Screening CT DLP: 136.[address] CTDI: 3.6 mGy IV CONTRAST USED: None. SCREENING VISIT: First visit COMPARISON: 06/07/2023 TECHNIQUE: Low dose computed tomography scan was performed through the chest at 1 millimeter thick se ctions and reconstructed images in the coronal plane at [address] DIAGNOSTIC QUALITY: Satisfactory FINDINGS: LUNG NODULES: 4.6 mm left lower lung pulmonary nodule image 264 is essentially unchanged relative to prior studies. No additional nodules present. LUNGS: COPD: Severity: Mild Fibrosis: Severity:None Lymph nodes: None Other findings: None RIGHT PLEURAL SPACE: Effusion: None Calcification: None Thickening: None Pneumothorax: None LEFT PLEURAL SPACE: Effusion: None Calcification: None Thickening: None Pneumothorax: None HEART: Heart Size: Mildly enlarged Coronary calcification: Mild Pericardial effusion: None OTHER FINDINGS: Upper abdomen: No significant abnormality Bony thorax: Degenerative changes Supraclavicular region: No significant abnormalityOther: No significant abnormalityI IMPRESSION: Sub-5 mm pulmonary nodule left lung base is unchanged. No nodules seen. FOLLOW UP CT CHEST RECOMMENDATION: Follow-up screening in one year CT LUNG RAD: LUNG RAD CATEGORY 2 benign appearance and/or behavior
== END | disposition home or self-care (01) ==
LOC: RADCTMAIN 13:00
PROVIDERS: ATTEND Internal Medicine Critical Care Medicine
DX: Z12.2 Encounter for screening for malignant neoplasm of respiratory organs (principal); F17.210 Nicotine dependence, cigarettes, uncomplicated; R91.1 Solitary pulmonary nodule
CPT/HCPCS: 71271

== ENCOUNTER → 2024-08-06 | Outpatient (CLI) | payer MEDICARE ==
[2024-08-06 15:30] LABS: ALT 28 U/L (10-49); AST 20 U/L (14-35); Albumin 4.1 g/dL (3.8-4.9); Albumin/Globulin Ratio 1.78 Ratio (1.60-3.17); Alkaline Phosphatase 126 U/L (41-126); BUN/Creat Ratio 15.72 Ratio (12.00-20.00); Blood Urea Nitrogen 28.3 mg/dL (9.0-27.0); Calcium 9.2 mg/dL (8.7-10.3); Carbon Dioxide 23.5 mmol/L (21.6-31.8); Chloride 109 mmol/L (96-109); Globulin 2.3 g/dL (1.6-3.3); Glucose 104 mg/dL (70-110); LDL Cholesterol,Calculated 42.7 mg/dL (0.0-131.0); Potassium 5.1 mmol/L (3.5-5.5); Sodium 143 mmol/L (135-145); Total Bilirubin 0.4 mg/dL (0.3-1.2); Total Protein 6.4 g/dL (6.2-8.2)
== END | disposition home or self-care (01) ==
LOC: LABWHC1 08:43
PROVIDERS: ATTEND Internal Medicine Interventional Cardiology
DX: E78.2 Mixed hyperlipidemia (principal)
CPT/HCPCS: 36415; 80053; 80061

== ENCOUNTER → 2025-02-26 | Outpatient (CLI) | payer MEDICARE ==
--- NOTE | 2025-02-27 10:30 | CA ---
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 67 - 155 / 56 - 104 cm??? LV Systolic Volume MOD BP 99.5 cm??? 22 - 58 / 19 - 49 cm??? LV Ejection Fraction MOD BP 55.4 % >= 55 % LV Cardiac Index MOD BP 2991.3 cm???/min???m??? LV Diastolic Volume MOD 4C 230.8 cm??? LV Systolic Volume MOD 4C 97.8 cm??? LV Ejection Fraction MOD 4C 57.6 % LV Cardiac Index MOD 4C 3218.7 cm???/min???m??? LV Diastolic Length 4C 10.3 cm LV Systolic Length 4C 9.7 cm LV Diastolic Volume MOD 2C 205.9 cm??? LV Systolic Volume MOD 2C 97.7 cm??? LV Ejection Fraction MOD 2C 52.5 % LV Cardiac Index MOD 2C 2617.9 cm???/min???m??? LV Diastolic Length 2C 10.8 cm LV Systolic Length 2C 9.3 cm LA Volume 99.1 cm??? 18 - 58 / 22 - 52 cm??? LA Volume Index 42.1 cm???/m??? 16 - 28 cm???/m??? DOPPLER AV Peak Velocity 122.3 cm/s AV Peak Gradient 6.0 mmHg AV Mean Velocity 88.6 cm/s AV Mean Gradient 3.4 mmHg AV Velocity Time Integral 26.5 cm LVOT Peak Velocity 103.5 cm/s LVOT Peak Gradient 4.3 mmHg LVOT Velocity Time Integral 18.7 cm LVOT Stroke Volume 91.7 cm??? LVOT Stroke Volume Index 39.8 ml/m??? LVOT Cardiac Index 2219.9 cm???/min???m??? AV Area Cont Eq vti 3.5 cm??? AV Area Cont Eq pk 4.1 cm??? MV Area PHT 2.2 cm??? Mitral E Point Velocity 45.2 cm/s Mitral A Point Velocity 81.8 cm/s Mitral E to A Ratio 0.6 MV Deceleration Time 340.1 ms PV Peak Velocity 88.6 cm/s PV Peak Gradient 3.1 mmHg FINDINGS Left Ventricle Left ventricular ejection fraction is estimated at 50-55 %. Moderately increased septal wall thickness. Severely increased left ventricular diastolic volume. Severely increased left ventricular systolic volume. No obvious regional wall motion abnormalities. Right Ventricle Normal right ventricular size and function. Unable to estimate the right ventricular systolic pressure. Right Atrium Right atrium not well visualized. Left Atrium Severely increased left atrial volume. Mildly increased left atrial area. Mitral Valve Structurally normal mitral valve. No mitral stenosis, regurgitation or prolapse. Aortic Valve Trileaflet aortic valve. Aortic valve sclerosis. No aortic valve stenosis or regurgitation. Tricuspid Valve Structurally normal tricuspid valve. No tricuspid stenosis. No tricuspid regurgitation. Pulmonic Valve Pulmonic valve not well visualized. No pulmonic stenosis. No pulmonic regurgitation. Pericardium No pericardial effusion. Aorta Aortic annulus normal. Mildly dilated proximal ascending aorta (tube). CONCLUSIONS Indication: Cor pulmonale LVH with left ventricular systolic function of the lower limits of normal Normal RV size and function No tricuspid regurgitation, unable to estimate RVSP Previewed by: Dr. James Ball MD (Electronically Signed) Final Date: 27 February 2025 10:29
== END | disposition home or self-care (01) ==
LOC: RADECHMAIN 14:16
PROVIDERS: ATTEND Internal Medicine
DX: I27.81 Cor pulmonale (chronic) (principal); I35.8 Other nonrheumatic aortic valve disorders
CPT/HCPCS: 93306